=== PATIENT | male | born 1975 | race Caucasian/White ===

== ENCOUNTER 2016-09-27 11:04 | Emergency (ER) | payer MEDICAID ==
[~2016-09-27] VITALS: Ht 193 cm; Wt 113.4 kg
[2016-09-27 11:14] VITALS: BP 170/108
[2016-09-27] MEDS ORDERED: ACETAMINOPHEN 325 MG TAB PO ONE ×2 (11:17→11:30)
[2016-09-27] MEDS ORDERED: ACETAMINOPHEN 650 mg PER 20 mL UD PO ONE ×2 (11:30)
== END 2016-09-27 16:55 | disposition left against medical advice (07) ==
LOC: ER 11:04
DX: R53.1 Weakness (principal); R07.0 Pain in throat; Z53.21 Procedure and treatment not carried out due to patient leaving prior to being seen by health care provider
CPT/HCPCS: 93005

== ENCOUNTER 2017-02-08 12:54 | Inpatient (IN) | payer SELFPAY ==
[~2017-02-08] VITALS: Ht 193 cm; Wt 121.4 kg
[2017-02-08] MEDS ORDERED: ASPirin 81 mg TAB ONE (13:14)
[2017-02-08] MEDS ORDERED: METOPROLOL TARTRATE 1MG/1ML-5ML VIAL IV ONE ×2 (13:14→13:30)
[2017-02-08] MEDS ORDERED: HEPARIN SODIUM (PORCINE) 5000 UNITS/ML 1ML VIAL ONE (13:14)
[2017-02-08] MEDS ORDERED: MORPHINE SULF INJ 2 MG/ML SYRINGE 1ML ONE (13:14)
[2017-02-08] MEDS ORDERED: fentaNYL CITRATE 100 MCG/2 ML VL ONE (13:15)
[2017-02-08] MEDS ORDERED: MIDAZOLAM HCL 1MG/1ML-2 ML VIAL ONE (13:15)
[2017-02-08] MEDS ORDERED: ANGIOMAX 250 MG VIAL IV ONE (13:15)
[2017-02-08] MEDS ORDERED: IODIXANOL 320MG/ML 100ML BTL IV ONE (13:16)
[2017-02-08] MEDS ORDERED: EPINEPHrine HCL 1 MG/10 ML SYRG ONE (13:16)
[2017-02-08] MEDS ORDERED: LIDOCAINE 2%HCL (LOCAL ANESTH.) INJ 20ML MDV ONE (13:16)
[2017-02-08] MEDS ORDERED: SODIUM CHL 0.9% 50 ML ONE (13:16)
[2017-02-08] MEDS ORDERED: ATROPINE SULF 0.5 MG/5ML SYR ONE (13:16)
[2017-02-08] MEDS ORDERED: EPTIFIBATIDE INJ (2MG/ML) 10ML VIAL IV ONE (13:17)
[2017-02-08] MEDS ORDERED: MORPHINE SULF INJ 2 MG/ML SYRINGE 1ML IV ONE (13:30)
[2017-02-08] MEDS ORDERED: HEPARIN SODIUM (PORCINE) 5000 UNITS/ML 1ML VIAL IV ONE (13:30)
[2017-02-08] MEDS ORDERED: NITROGLYCERIN 0.4 MG SL TAB SL PRN ×2 (13:30→14:30)
[2017-02-08] MEDS ORDERED: ASPirin 325 MG TAB PO ONE (13:30)
[2017-02-08 13:45] LABS: Basophils # (auto) 0.1 uL; Basophils % (auto) 0.3 % (0.0-2.0); CONDITION Y; Eosinophils # (auto) 0.1 uL; Eosinophils % (auto) 0.4 % (0.0-7.0); Hematocrit 46.1 % (41.0-53.0); Lymphocytes # (auto) 1.7 uL; Lymphocytes % (auto) 8.9 % (10.0-50.0); Mean Corpuscular Hemoglobin 31.4 pg (28.0-32.0); Mean Corpuscular Hgb Conc. 34.8 g/dL (32.0-36.0); Mean Corpuscular Volume 90.4 fL (80.0-100.0); Mean Platelet Volume 8.6 fL (7.4-10.4); Monocytes % (auto) 5.4 % (0.0-12.0); Neutrophils # (auto) 16.2 uL; Platelet Count (auto) 329 10^3/uL (140-450); Red Cell Distribution Width 14.1 % (11.6-16.0); White Blood Cell 19.1 10^3/uL (4.4-10.8)
[2017-02-08] MEDS ORDERED: LABETALOL HCL 5 MG/ML 4ML SYRINGE IV ONE (13:54)
[2017-02-08 13:58] LABS: INR 1.05 (0.9-1.15); Partial Thromboplastin Time 29.4 sec (22.64-33.71); Prothrombin Time 11.4 sec (9.37-12.3)
[2017-02-08] MEDS: SODIUM CHLOR 0.9% PF (SALINE LOCK) 10ML VIAL IV SCH ×2 (14:00→21:59)
[2017-02-08] MEDS ORDERED: FUROSEMIDE 40 MG/4 ML VIAL ONE (14:16)
[2017-02-08 14:17] LABS: BUN/Creatinine Ratio 11.6; Bilirubin, Total 0.7 mg/dL (0.2-1.0); Calcium 8.7 mg/dL (8.5-10.1); Magnesium 2.4 mg/dL (1.6-2.6); Potassium 3.6 mmol/L (3.5-5.1); Total Protein 7.7 g/dL (6.4-8.2)
[2017-02-08] MEDS ORDERED: ALPRAZolam 0.5 MG TAB PO PRN (14:30)
[2017-02-08] MEDS ORDERED: MORPHINE SULF INJ 2 MG/ML SYRINGE 1ML IV PRN (14:30)
[2017-02-08] MEDS ORDERED: FUROSEMIDE 40 MG/4 ML VIAL IV ONE (14:30)
[2017-02-08] MEDS ORDERED: ACETAMINOPHEN 500 MG TAB PO PRN (14:30)
[2017-02-08] MEDS ORDERED: LABETALOL HCL 5 MG/ML ML 20ML VIAL IV ONE (14:30)
[2017-02-08] MEDS ORDERED: ALBUTEROL SULF 2.5 MG/0.5ML(0.5%) NEB SOLN NEB PRN (14:45)
[2017-02-08] MEDS ORDERED: FUROSEMIDE 20 MG/2 ML VIAL IV ONE (15:00)
[2017-02-08] MEDS ORDERED: POTASSIUM CHLORIDE 8 MEQ TAB PO ONE (15:00)
[2017-02-08] MEDS ORDERED: CARVEDILOL 3.125 MG TAB PO ONE (15:00)
[2017-02-08] MEDS ORDERED: FAMOTIDINE 20 MG TAB PO ONE (15:00)
[2017-02-08] MEDS: HYDROcodone-ACET 5/325MG TAB PO PRN ×2 (16:37→21:43)
[2017-02-08 17:05] VITALS: BP 153/96
[2017-02-08] MEDS: FUROSEMIDE 20 MG/2 ML VIAL IV SCH (18:00)
[2017-02-08 20:00] VITALS: BP_SYST 107; BP_SYST 173; BP_DIAS 113; BP_DIAS 64
[2017-02-08 20:20] VITALS: BP 153/96
[2017-02-08] MEDS: LABETALOL HCL 5 MG/ML ML 20ML VIAL IV PRN ×2 (21:10→23:59)
[2017-02-08] MEDS: FAMOTIDINE 20 MG TAB PO SCH (21:44)
[2017-02-08] MEDS: CARVEDILOL 3.125 MG TAB PO SCH (21:49)
[2017-02-08] MEDS: LISINOPRIL 20 MG TAB PO SCH (21:50)
[2017-02-08] MEDS ORDERED: LISINOPRIL 20 MG TAB PO SCH (22:00)
[2017-02-08] MEDS ORDERED: SODIUM CHLOR 0.9% PF (SALINE LOCK) 10ML VIAL IV SCH (22:00)
[2017-02-08] MEDS: POTASSIUM CHLORIDE 8 MEQ TAB PO SCH (22:00)
[2017-02-09] MEDS: HYDROcodone-ACET 5/325MG TAB PO PRN ×2 (02:05→17:07)
[2017-02-09 05:06] LABS: Thyroxine (T4) 8.8 ug/dL (4.5-12.0)
[2017-02-09 05:26] VITALS: BP 160/99
[2017-02-09] MEDS: SODIUM CHLOR 0.9% PF (SALINE LOCK) 10ML VIAL IV SCH ×2 (05:36→14:00)
[2017-02-09] MEDS: FUROSEMIDE 20 MG/2 ML VIAL IV SCH ×2 (05:39→18:10)
[2017-02-09 06:08] LABS: BUN/Creatinine Ratio 16.9; Calcium 8.2 mg/dL (8.5-10.1); Potassium 3.4 mmol/L (3.5-5.1)
[2017-02-09 06:18] LABS: B-Type Natriuretic Peptide 265.88 pg/mL (0-100)
[2017-02-09 06:25] LABS: Temperature: 23.3 C (20.0-25.0)
[2017-02-09 08:00] VITALS: BP 182/113
[2017-02-09] MEDS: LABETALOL HCL 5 MG/ML ML 20ML VIAL IV PRN ×5 (08:40→15:08)
[2017-02-09 09:00] VITALS: BP 182/113
[2017-02-09] MEDS: CARVEDILOL 3.125 MG TAB PO SCH (09:54)
[2017-02-09] MEDS: LISINOPRIL 20 MG TAB PO SCH (09:55)
[2017-02-09] MEDS: FAMOTIDINE 20 MG TAB PO SCH (09:55)
[2017-02-09] MEDS: POTASSIUM CHLORIDE 8 MEQ TAB PO SCH (09:55)
[2017-02-09] MEDS ORDERED: IOHEXOL 350 MG/ML 100ML IJ ONE (10:18)
[2017-02-09 12:55] VITALS: BP 166/90
[2017-02-09 17:00] VITALS: BP 141/99
[2017-02-09] MEDS ORDERED: POTASSIUM CHL 20 Meq TABLET PO ONE (18:00)
[2017-02-09 18:52] LABS: Urine Bilirubin Negative (Negative); Urine Blood Negative /uL (Negative); Urine Color Yellow (Yellow); Urine Ketone Negative (Negative); Urine Nitrite Negative (Negative); Urine RBC <1 /hpf (0 - 3); Urine Urobilinogen Normal (Negative); Urine pH 6.5 (5.0-8.0)
[2017-02-09 19:02] LABS: Urine Glucose 4+ mg/dL (Normal)
[2017-02-09] MEDS ORDERED: cefTRIAXone 1GM/50ML D5W 50 ML IV SCH (21:00)
[2017-02-09] MEDS ORDERED: CARVEDILOL 12.5 MG TAB PO SCH (22:00)
[2017-02-10] MEDS ORDERED: IPRATROPIUM BROM 0.5 MG/2.5ML INH SOL NEB SCH
[2017-02-10] MEDS ORDERED: BUDESONIDE (INHALATION) 0.5 MG/2 ML NEB NEB SCH (10:00)
[2017-02-10] MEDS ORDERED: LEVOFLOXACIN 500MG 100 ML IV SCH (10:00)
== END 2017-02-09 20:00 | disposition left against medical advice (07) | DRG 280 ==
LOC: ER 12:54 → EDBD 12:54 → CATH 12:55 → TELE-E-ADS 12:56 → TELE-WESTW 18:09
PROVIDERS: ADMIT Specialist; ATTEND Specialist
PROC: 4A023N8 Measurement of Cardiac Sampling and Pressure, Bilateral, Percutaneous Approach (ICD-10-PCS; principal; 2017-02-08)
PROC: B2111ZZ Fluoroscopy of Multiple Coronary Arteries using Low Osmolar Contrast (ICD-10-PCS; 2017-02-08)
PROC: B2151ZZ Fluoroscopy of Left Heart using Low Osmolar Contrast (ICD-10-PCS; 2017-02-08)
PROC: B41F1ZZ Fluoroscopy of Right Lower Extremity Arteries using Low Osmolar Contrast (ICD-10-PCS; 2017-02-08)
DX: I21.09 ST elevation (STEMI) myocardial infarction involving other coronary artery of anterior wall (principal); I50.23 Acute on chronic systolic (congestive) heart failure; J18.9 Pneumonia, unspecified organism; I42.9 Cardiomyopathy, unspecified; J44.0 Chronic obstructive pulmonary disease with (acute) lower respiratory infection; I20.0 Unstable angina; E66.01 Morbid (severe) obesity due to excess calories; F17.210 Nicotine dependence, cigarettes, uncomplicated; I10 Essential (primary) hypertension; I27.2 Other secondary pulmonary hypertension; F12.90 Cannabis use, unspecified, uncomplicated; R73.9 Hyperglycemia, unspecified; I11.0 Hypertensive heart disease with heart failure; K76.0 Fatty (change of) liver, not elsewhere classified; Z91.19 Patient's noncompliance with other medical treatment and regimen; Z71.89 Other specified counseling; Z68.32 Body mass index [BMI] 32.0-32.9, adult
CPT/HCPCS: 36415; 71010; 71275; 76705; 80048; 80053; 80307; 81001; 83735; 83880; 84443; 84484; 85025; 85610; 85730; 87040; 87086; 93005; 93460; 93970; 94761; 96374; 96375; 99152; C1751; J0461; J2250; J3490; Q9967

== ENCOUNTER 2017-02-12 01:35 | Emergency (ER) | payer MEDICAID ==
[~2017-02-12] VITALS: Ht 193 cm; Wt 122.5 kg
[2017-02-12] MEDS ORDERED: cloNIDine HCL 0.1 MG TAB ONE (01:56)
[2017-02-12 02:10] VITALS: BP 172/97
[2017-02-12] MEDS ORDERED: cloNIDine HCL 0.1 MG TAB PO ONE (02:15)
[2017-02-12 02:52] LABS: Basophils # (auto) 0.1 uL; Basophils % (auto) 0.3 % (0.0-2.0); CONDITION Y; DEFINITIVE SEE PRINTOUT; Eosinophils # (auto) 0.6 uL; Eosinophils % (auto) 2.7 % (0.0-7.0); Hematocrit 43.9 % (41.0-53.0); Lymphocytes # (auto) 3.3 uL; Lymphocytes % (auto) 15.6 % (10.0-50.0); Mean Corpuscular Hemoglobin 31.1 pg (28.0-32.0); Mean Corpuscular Hgb Conc. 34.2 g/dL (32.0-36.0); Mean Corpuscular Volume 90.9 fL (80.0-100.0); Mean Platelet Volume 9.2 fL (7.4-10.4); Monocytes # (auto) 2.8 uL; Monocytes % (auto) 13.3 % (0.0-12.0); Neutrophils # (auto) 14.4 uL; Neutrophils % (auto) 68.1 % (37.0-80.0); Platelet Count (auto) 314 10^3/uL (140-450); Red Cell Distribution Width 13.7 % (11.6-16.0); White Blood Cell 21.2 10^3/uL (4.4-10.8)
[2017-02-12 03:25] LABS: BUN/Creatinine Ratio 13.4; Calcium 8.3 mg/dL (8.5-10.1); Magnesium 2.2 mg/dL (1.6-2.6); Potassium 3.7 mmol/L (3.5-5.1)
[2017-02-12 03:30] LABS: Total Protein 7.3 g/dL (6.4-8.2)
== END 2017-02-12 06:57 | disposition left against medical advice (07) ==
LOC: ER 01:48
DX: I10 Essential (primary) hypertension (principal); M54.5 Low back pain; Z53.21 Procedure and treatment not carried out due to patient leaving prior to being seen by health care provider
CPT/HCPCS: 36415; 71010; 80053; 83735; 84484; 85025; 93005

== ENCOUNTER 2024-12-08 11:31 | Inpatient (IN) | payer MEDICAID ==
[~2024-12-08] VITALS: Ht 177.8 cm; Wt 121.0 kg
[2024-12-08] VITALS (7 sets, daily range): BP systolic 170–173; BP diastolic 71–80; PULSE 59–74; RESP 18–20; TEMP 98; O2SAT 97–99
[~2024-12-08 11:31] MED LIST: DOX2T PO; FERR325T20 PO; FURO40TA4 PO; HYDR100T10 PO; LISI30TA8 PO; SEVE800T10 PO
--- NOTE | 2024-12-08 11:40 | ECG ---
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
--- NOTE | 2024-12-08 11:52 | ED.PDOC ---
HPI Comments 49y m who presents to the ED via EMS for chief complaint of chest pain. Pt states he has been having chest pain and shortness of breath since last night PM. Pt today noted due to the increased heat, he had exacerbation of his chest pain and shortness of breath. Pt states his chest pain was substernal, constant, sharp, rating the pain10/10, with no associated exacerbating or relieving factors. Pt states he called EMS and prior to EMS arrival, he self administered 1 tab nitro and states his pain had gone away prior to EMS arrival. Pt states upon EMS arrival, he is still short of breath with associated chills, sweats, cough, and vomiting. Pt in the ED, states he is bed ridden with noted history of pressure ulcers. Pt has noted history of CKD and states he gets dialysis , and Sat but states he has been getting dialysis for the past 4 days due to increased fluid build up from his CHF. Pt in the ED, otherwise denies any other symptoms at this time. Time Seen by MD: 11:47 Primary Care Provider: DENIES Reviewed Notes: Medications, Allergies Allergies: Coded Allergies: NO KNOWN ALLERGIES (Unverified , 09/27/16) Home Meds Reported Medications Lisinopril (Lisinopril) 30 Mg Tab, 1 TAB PO BID, #30 TAB 5 Refills 06/19/18 Information Source: Patient, Emergency Med Personnel Mode of Arrival: EMS Brought in by: EMS Past Medical History PAST MEDICAL HISTORY: Asthma, CHF, CKF, COPD, HTN, MS Surgical History: PTCA Surgical History (Other): AAA Family History Family History: Unobtainable Social History Smoker: Cigarettes, Less Than 1 Pack/Day Alcohol: Denies ETOH Use Drugs: Marijuana Lives In: Home Constitutional: reports: chills, malaise, sweats; denies: diaphoresis, fatigue, fever, weakness, others EENTM: denies: blurred vision, double vision, ear bleeding, ear discharge, ear drainage, ear pain, ear ringing, eye pain, eye redness, hearing loss, mouth pain, mouth swelling, nasal discharge, nose bleeding, nose congestion, nose pain, photophobia, tearing, throat pain, throat swelling, voice changes, others Respiratory: reports: cough, shortness of breath; denies: hemoptysis, orthopnea, SOB at rest, SOB with excertion, stridor, wheezing, others Cardiovascular: reports: chest pain; denies: dizzy spells, diaphoresis, Dyspnea on exertion, edema, irregular heart beat, left arm pain, lightheadedness, palpitations, PND, syncope, others Gastrointestinal: denies: abdomen distended, abdominal pain, blood streaked bowels, constipated, diarrhea, dysphagia, difficulty swallowing, hematemesis, melena, nausea, poor appetite, poor fluid intake, rectal bleeding, rectal pain, vomiting, others Genitourinary: denies: burning, dysuria, flank pain, frequency, hematuria, incontinence, penile discharge, penile sore, pain, testicle pain, testicle swelling, urgency, others Neurological: denies: dizziness, fainting, headache, left sided numbness, left sided weakness, numbness, paresthesia, pre-existing deficit, right sided numbness, right sided weakness, seizure, speech problems, tingling, tremors, weakness, others Musculoskeletal: denies: back pain, gout, joint pain, joint swelling, muscle pain, muscle stiffness, neck pain, others Integumetry: denies: bruises, change in color, change in hair/nails, dryness, laceration, lesions, lumps, rash, wounds, others Allergic/Immunocompromised: denies: Difficulty Healing, Frequent Infections, Hives, Itching, others Hematologic/Lymphatic: denies: anemia, blood clots, easy bleeding, easy bruising, swollen glands, others Endocrine: denies: excessive hunger, excessive sweating, excessive thirst, excessive urination, flushing, intolerance to cold, intolerance to heat, unexplained weight gain, unexplained weight loss, others Psychiatric: denies: anxiety, bipolar disorder, depression, hopeless, panic d isorder, schizophrenia, sleepless, suicidal, others All Other Systems: Reviewed and Negative Physical Exam General Appearance: Moderate Distress, Obese HEENT: Normal ENT Inspection, Pharynx Normal, TMs Normal Neck: Full Range of Motion, Non-Tender, Normal, Normal Inspection Respiratory: Chest Non-Tender, Lungs Clear, No Accessory Muscle Use, No Respiratory Distress, Normal Breath Sounds Cardiovascular: No Edema, No JVD, No Murmur, No Gallop, Normal Peripheral Pulses, Regular Rate/Rhythm Breast Exam: Deferred Gastrointestinal: No Organomegaly, Non Tender, No Pulsatile Mass, Normal Bowel Sounds, Soft, Other (Midline abdominal scar) Genitalia: Deferred Pelvic: Deferred Rectal: Deferred Extremities: No calf tenderness, Normal capillary refill, Pedal edema, Other (Open wound to the left calcaneal region) Musculoskeletal : Apperance: Normal 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 Was a procedure done?: No CP Differential Dx Differential Diagnosis: A-fib, A-Flutter, Angina, Anxiety / Panic Attack, Atrial Dysrhythmia, Electrolyte Disorder, Heart Failure, MS Other Differential Diagnosis ESRD, CHF exacerbation, PNA, ACS Differential Diagnosis: HTN Essential, HTN Accelerated X-Ray, Labs, Meds, VS Vital Signs Date Time Temp Pulse Resp B/P (MAP) Pulse Ox O2 Delivery O2 Flow Rate FiO2 12/08/24 13:00 73 12/08/24 12:50 73 12/08/24 12:46 98.8 84 16 187/76 (113) 97 98.8 12/08/24 12:46 74 20 97 Nasal Cannula* 3 32 12/08/24 11:52 72 12/08/24 11:40 98.8 94 18 190/84 (119) 98 98.8 12/08/24 11:35 72 Lab Test 12/08/24 13:32 12/08/24 12:58 12/08/24 11:51 Range/Units Lactic Acid Level Pending Troponin I High Sensitivity Pending 59 *H </=54 ng/L White Blood Count 24.9 H 4.4-10.8 10^3/uL Red Blood Count 2.94 L 4.5-5.90 10^6/uL Hemoglobin 8.3 L 13.5-17.5 g/dL Hematocrit 26.1 L 41.0-53.0 % Mean Corpuscular Volume 88.8 80.0-100.0 fL Mean Corpuscular Hemoglobin 28.3 28.0-32.0 pg Mean Corpuscular Hemoglobin Concent 31.9 L 32.0-36.0 g/dL Red Cell Distribution Width 21.0 H 11.8-14.3 % Platelet Count 168 140-450 10^3/uL Mean Platelet Volume 7.8 6.9-10.8 fL Neutrophils (%) (Auto) 83.6 H 37.0-80.0 % Lymphocytes (%) (Auto) 4.3 L 10.0-50.0 % Monocytes (%) (Auto) 10.0 0.0-12.0 % Eosinophils (%) (Auto) 1.9 0.0-7.0 % Basophils (%) (Auto) 0.2 0.0-2.0 % Neutrophils # (Auto) 20.8 H 1.6-8.6 10 ^3/uL Lymphocytes # (Auto) 1.1 0.4-5.4 10 ^3/uL Monocytes # (Auto) 2.5 H 0-1.3 10 ^3/uL Eosinophils # (Auto) 0.5 0-0.8 10 ^3/uL Basophils # (Auto) 0 0-0.2 10 ^3/uL Nucleated Red Blood Cells 0.0 % D-Dimer, Quantitative 2.21 H 0.0-0.49 mg/L FEU Sodium Level 139 136-145 mmol/L Potassium Level 5.2 H 3.5-5.1 mmol/L Chloride Level 101 98-107 mmol/L Carbon Dioxide Level 27 20-31 mmol/L Anion Gap 11 5-15 Blood Urea Nitrogen 60 H 9-23 mg/dL Creatinine 3.12 H 0.700-1.30 mg/dL Glomerular Filtration Rate Calc 23 >90 mL/min BUN/Creatinine Ratio 19.2 10.0-20.0 Serum Glucose 146 H 74-106 mg/dL Calcium Level 9.4 8.7-10.4 mg/dL B-Type Natriuretic Peptide 1565.75 0-100 pg/mL Current Medications Medications (Trade) Dose Ordered Sig/John Route Start Time Stop Time Status Last Admin Aspirin 162 mg ONCE ONCE PO 12/08/24 11:45 12/08/24 11:46 DC 12/08/24 12:03 Images Reviewed?: Images reviewed and evaluated by me Time of 1ST Reevaluation: 12:20 Reevaluation 1ST: Unchanged Patient Education/Counseling: Diagnosis, Treatment, Prognosis Family Education/Counseling: No Family Present Sepsis Sepsis Reasesment Focused Exam Orders: Laboratory Tests 12/08/24 13:32: Departure 1 Departure Time of Disposition: 13:39 Impression: Primary Impression: Acute coronary syndrome Additional Impressions: Generalized weakness Elevated troponin Acute pulmonary edema ESRD needing dialysis Disposition: ADMITTED INPATIENT Admit to: Tele Condition: Fair Critical Care Note Critical Care Time?: Yes (45 min-critical care time only) Stability Stability form required: Yes Unstable for transfer: Telemetry monitoring (Telemetry monitoring required), ED Physician Assesment (Clinical assesment) Heart Score Heart Score: Heart Score Response (Comments) Value History Slightly Suspicious 0 EKG Normal 0 Age 45-64 1 Risk Factors >3 or Hx ASHD 2 Troponin 1-2 x's Normal limit 1 Total 4 I personally scribed for HERON BARTH MD ([email or web address]) on 12/08/24 at 11:52. Electronically submitted by Castro Simon ([email or web address]). HERON BARTH MD Dec 08, 2024 11:52
[2024-12-08] MEDS: ASPirin 81 mg TAB PO ONE (12:03)
[2024-12-08 12:05] LABS: Basophils # (auto) 0 10 ^3/uL (0-0.2); Mean Corpuscular Hemoglobin 28.3 pg (28.0-32.0)
[2024-12-08 12:08] LABS: Basophils % (auto) 0.2 % (0.0-2.0); Eosinophils # (auto) 0.5 10 ^3/uL (0-0.8); Eosinophils % (auto) 1.9 % (0.0-7.0); Hematocrit 26.1 % (41.0-53.0); Hemoglobin 8.3 g/dL (13.5-17.5); Lymphocytes # (auto) 1.1 10 ^3/uL (0.4-5.4); Lymphocytes % (auto) 4.3 % (10.0-50.0); Mean Corpuscular Hgb Conc. 31.9 g/dL (32.0-36.0); Mean Corpuscular Volume 88.8 fL (80.0-100.0); Monocytes # (auto) 2.5 10 ^3/uL (0-1.3); Neutrophils # (auto) 20.8 10 ^3/uL (1.6-8.6); Neutrophils % (auto) 83.6 % (37.0-80.0); Platelet Count (auto) 168 10^3/uL (140-450); Red Blood Cells 2.94 10^6/uL (4.5-5.90); White Blood Cell 24.9 10^3/uL (4.4-10.8)
[2024-12-08 12:10] LABS: Chloride 101 mmol/L (98-107); Sodium 139 mmol/L (136-145)
[2024-12-08 12:11] LABS: Anion Gap 11 (5-15); Carbon Dioxide 27 mmol/L (20-31)
[2024-12-08 12:12] LABS: Calcium 9.4 mg/dL (8.7-10.4)
[2024-12-08 12:16] LABS: BUN/Creatinine Ratio 19.2 (10.0-20.0)
[2024-12-08 12:18] LABS: Blood Urea Nitrogen 60 mg/dL (9-23); Glucose 146 mg/dL (74-106); Potassium 5.2 mmol/L (3.5-5.1)
--- NOTE | 2024-12-08 12:51 | ECG ---
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
--- NOTE | 2024-12-08 13:37 | DVH ---
CHEST RADIOGRAPH Indication: cp Technique: Single frontal view of the chest was obtained COMPARISON: None FINDINGS: Lines and Tubes: Right tunneled internal jugular approach hemodialysis catheter terminates near the s uperior cavoatrial junction. Lungs: Hazy/patchy bilateral lower lung opacities. Mild interstitial prominence. Pleura: Small left pleural effusion. No pneumothorax. Cardiomediastinal contours: Mild enlargement of the cardiac silhouette. Aortic arch stent. Bones: Unremarkable IMPRESSION: Mild interstitial prominence, hazy lower lung airspace opacities, and a small left pleural effusion. Findings could represent mild pulmonary edema with infection not excluded.
[2024-12-08] MEDS: ALBUTEROL SULF 2.5 MG/0.5ML(0.5%) NEB SOLN NEB ONE (16:47)
[2024-12-08] MEDS: IPRATROPIUM BROM 0.5 MG/2.5ML INH SOL NEB ONE (16:47)
--- NOTE | 2024-12-08 16:56 | DVHHP2 ---
History of Present Illness Reason for Visit: Chest pain History of Present Illness A 49-year-old male with a complex medical history including hypertension, congestive heart failure (EF 25%), coronary artery disease with prior CT and stenting, chronic kidney disease on hemodialysis, COPD, asthma, obesity, history of aortic aneurysm repair (2023), complicated by paraplegia, methamphetamine, marijuana, and tobacco use, presents to the ED with sharp, stabbing chest pain that began last night. He reports that the pain was relieved after taking one nitroglycerin tablet. The chest pain is associated with shortness of breath. Patient states he previously saw superintendent construction Dr. Malhotra but has not followed up in some time. He has a future appointment with Dr. Terry. He underwent left heart catheterization in 2017 showing clear coronaries and an EF of 25%. He had 1-2 stents placed in [id number] at [facility]. He under went aortic aneurysm repair in 2023, complicated by paraplegia and is now wheelchair- bound. He also reports multiple pressure injuries on buttocks and bilateral lower extremities Past Medical History As stated in HPI Past Surgical History AAA repair Family History Reviewed, non-contributory to the management of this case. Past Social History Admits to tobacco use and marijuana use Ex amphetamine use Review of Systems Constitutional: Yes: Malaise; No: Fever, Chills, Sweats, Weakness, Other Eyes: No: Pain, Vision change, Conjunctivae inflammation, Eyelid inflammation, Other, Redness ENT: No: Ear pain, Ear discharge, Nose pain, Nose discharge, Nose congestion, Mouth pain, Mouth swelling, Throat pain, Throat swelling, Other Respiratory: No: Cough, Dry, Shortness of breath, SOB with excertion, Wheezing, Hemoptysis, Pleuritic Pain, Sputum, Wheezing, Other Cardiovascular: Chest Pain, Orthopnea, Paroxysmal Noc. Dyspnea, Edema; No: Palpitations, Lt Headedness, Other Gastrointestinal: No: Nausea, Vomiting, Abdominal Pain, Diarrhea, Constipation, Melena, Hematochezia, Other Genitourinary: No Dysuria, No Frequency, No Incontinence, No Hematuria, No Retention, No Other Skin: Other (Multiple pressure injuries) Neurological: Other (Paraplegia, wheelchair-bound) Allergies: Coded Allergies: NO KNOWN ALLERGIES (Unverified , 09/27/16) Exam Vital Signs Vital Signs Date Time Temp Pulse Resp B/P (MAP) Pulse Ox O2 Delivery O2 Flow Rate FiO2 12/08/24 16:00 70 12/08/24 15:00 16 177/67 (103) 97 12/08/24 12:46 98.8 98.8 12/08/24 12:46 Nasal Cannula* 3 32 General Appearance: Alert, Oriented X3, Cooperative, mild distress HEENT: Atraumatic, PERRLA, EOMI Respiratory: Clear to auscultation, Normal air movement Cardiovascular: Regular rate, Normal S1, Normal S2, Other (Bilateral lower extremity nonpitting edema) Abdominal: Normal bowel sounds, Soft, No tenderness Extremities: Other (Pressure injury in buttocks and bilateral lower extremity/feet) Skin: No rashes Neuro: Other (Wheelchair-bound, paraplegic) Labs/Xrays Labs Test 12/08/24 14:51 12/08/24 13:32 12/08/24 11:51 Range/Units Troponin I High Sensitivity 66 *H </=54 ng/L Lactic Acid Level 1.2 0.4-2.0 mmol/L White Blood Count 24.9 H 4.4-10.8 10^3/uL Red Blood Count 2.94 L 4.5-5.90 10^6/uL Hemoglobin 8.3 L 13.5-17.5 g/dL Hematocrit 26.1 L 41.0-53.0 % Mean Corpuscular Volume 88.8 80.0-100.0 fL Mean Corpuscular Hemoglobin 28.3 28.0-32.0 pg Mean Corpuscular Hemoglobin Concent 31.9 L 32.0-36.0 g/dL Red Cell Distribution Width 21.0 H 11.8-14.3 % Platelet Count 168 140-450 10^3/uL Mean Platelet Volume 7.8 6.9-10.8 fL Neutrophils (%) (Auto) 83.6 H 37.0-80.0 % Lymphocytes (%) (Auto) 4.3 L 10.0-50.0 % Monocytes (%) (Auto) 10.0 0.0-12.0 % Eosinophils (%) (Auto) 1.9 0.0-7.0 % Basophils (%) (Auto) 0.2 0.0-2.0 % Neutrophils # (Auto) 20.8 H 1.6-8.6 10 ^3/uL Lymphocytes # (Auto) 1.1 0.4-5.4 10 ^3/uL Monocytes # (Auto) 2.5 H 0-1.3 10 ^3/uL Eosinophils # (Auto) 0.5 0-0.8 10 ^3/uL Basophils # (Auto) 0 0-0.2 10 ^3/uL Nucleated Red Blood Cells 0.0 % D-Dimer, Quantitative 2.21 H 0.0-0.49 mg/L FEU Sodium Level 139 136-145 mmol/L Potassium Level 5.2 H 3.5-5.1 mmol/L Chloride Level 101 98-107 mmol/L Carbon Dioxide Level 27 20-31 mmol/L Anion Gap 11 5-15 Blood Urea Nitrogen 60 H 9-23 mg/dL Creatinine 3.12 H 0.700-1.30 mg/dL Glomerular Filtration Rate Calc 23 >90 mL/min BUN/Creatinine Ratio 19.2 10.0-20.0 Serum Glucose 146 H 74-106 mg/dL Calcium Level 9.4 8.7-10.4 mg/dL B-Type Natriuretic Peptide 1565.75 0-100 pg/mL PROCEDURE(s): CXRP - CHEST PORTABLE REASON: cp ORDER NUMBER(s): [id number], ACCESSION NUMBER(s): [id number] CHEST RADIOGRAPH Indication: cp Technique: Single frontal view of the chest was obtained COMPARISON: None FINDINGS: Lines and Tubes: Right tunneled internal jugular approach hemodialysis catheter terminates near the superior cavoatrial junction. Lungs: Hazy/patchy bilateral lower lung opacities. Mild interstitial prominence. Pleura: Small left pleural effusion. No pneumothorax. Cardiomediastinal contours: Mild enlargement of the cardiac silhouette. Aortic arch stent. Bones: Unremarkable IMPRESSION: Mild interstitial prominence, hazy lower lung airspace opacities, and a small left pleural effusion. Findings could represent mild pulmonary edema with infection not excluded. Assessment/Plan Assessment/Plan # chest pain, non ST-elevation--likely noncardiac versus demand ischemia, rule out progressive CAD, relieved with nitro, no troponin rise, risk factors, CAD, recent aneurysm surgery, meth use, hypertensive urgency # Elevated D-dimer raises concern for PE or other vascular cause # HFrEF- hx of EF 25%, risk for decompensation # accelerated hypertension- may contribute to chest pain and cardiac strain # CAD s/p PCI # cardiomyopathy Admit to telemetry unit Cardiology consult for management of chest pain and CHF V/Q scan to rule out PE or aortic dissection Continue with GDM T for heart failure, IV diuresis Continue antihypertensive medication Echocardiogram Serial troponins and EKG daily wt, strict I&Os Close cardiac surveillance # CKD on hemodialysis Nephrology consult for treatment # history of thoracic aortic aneurysm repair 2023 Concern for structural complications if chest pain atypical # paraplegia--postsurgical, at high risk for complication including thromboembolism and skin breakdown # multiple pressure injuries-possible source of leukocytosis Empiric antibiotic Wound consult Blood and wound culture # Asthma DuoNeb treatment # anxiety Sertraline # polysubstance use including tobacco, marijuana, and ex amphetamine use Counseled Nicotine patch UDS DVT prophylaxis Medical plan discussed with patient and RN Plan discussed with: Patient My Orders Orders - IVETH BRADLEY KEG RAISER Procedure Category Date Status Time Admit ADMIT 12/08/24 Transmitted 16:52 Code Status CODE 12/08/24 Transmitted 16:52 Hydrocodone-Acet PHA 12/08/24 Transmitted 5/325mg Tab ([place] 17:00 Enoxaparin Sodium PHA 12/09/24 Transmitted (Lovenox) 10:00 Fall Risk Precautions [facility] 12/08/[address] 16:52 Complete Blood Count LAB 12/09/24 Verified 04:00 Comprehensive LAB 12/09/24 Verified Metabolic Panel 04:00 Cardiac DIET 12/08/24 Transmitted Diet-2gna,Lofat,Lochol Dinner Echo 2d Mode Cardiac US 12/08/24 Logged DOP 16:52 Condition: Fair ZAC 12/08/24 Transmitted 16:52 Acetaminophen Tablet PHA 12/08/24 Transmitted (Tylenol Tablet) 17:00 Morphine Sulfate PHA 12/08/24 Transmitted Injection 17:00 Nitroglycerin PHA 12/08/24 Transmitted Sublingual (Ntrostat 17:00 Morphine Sulfate PHA 12/08/24 Transmitted Injection 17:00 Stat Ekg For Chest ZAC 12/08/24 Transmitted Pain 16:52 Notify Of Changes [facility] 12/08/24 Transmitted From Base 16:52 Billet Driller For ZAC 12/08/24 Transmitted 24 Hours 16:52 Emergency Dysrhythmia ZAC 12/08/24 Transmitted Protocol 16:52 Rhythm Strips Once ZAC 12/08/24 Transmitted Every Shift 16:52 Oxygen By Nasal RT 12/08/24 Transmitted Cannula 16:52 Date of Service: Dec 08, 2024 Billing Provider: IVETH BRADLEY Common Visit Codes: [id number] INP/OBS CARE (HIGH) IVETH BRADLEY Dec 08, 2024 16:56
[2024-12-08] MEDS ORDERED: MORPHINE SULFATE INJ 2 MG/ml SYRG IV PRN (17:00)
[2024-12-08] MEDS ORDERED: VANCOMYCIN PER PHARMACY 0 MG IV SCH (17:30)
[2024-12-08] MEDS ORDERED: CLON0.2T PO (17:50)
[2024-12-08] MEDS ORDERED: SERT-289 PO (17:50)
[2024-12-08] MEDS ORDERED: LOSA-535 PO (17:50)
[2024-12-08] MEDS ORDERED: CARV25TA55 PO (17:50)
[2024-12-08] MEDS ORDERED: NIFE90TA75 PO (17:50)
[2024-12-08] MEDS: IPRATROPIUM BROM 0.5 MG/2.5ML INH SOL ONE (18:19)
[2024-12-08] MEDS: ALBUTEROL SULF 2.5 MG/0.5ML(0.5%) NEB SOLN ONE (18:19)
[2024-12-08] MEDS: ALBUTEROL SULF 2.5 MG/0.5ML(0.5%) NEB SOLN NEB SCH (18:20)
[2024-12-08] MEDS: IPRATROPIUM BROM 0.5 MG/2.5ML INH SOL NEB SCH (18:20)
[2024-12-08] MEDS: VANCOMYCIN 1.75GM/350ML 350 ML IV ONE (19:05)
[2024-12-08] MEDS: NICOTINE 7MG/24HR TOPICAL PATCH TD ONE (19:07)
[2024-12-08] MEDS: FUROSEMIDE 40 MG/4 ML VIAL IV ONE (19:10)
[2024-12-08] MEDS: PIPERACILLIN-TAZOB 2.25GM 50 ML IV SCH (21:50)
[2024-12-08] MEDS ORDERED: PATIENTS OWN MEDICATION (Lisinopril 1 TAB) PO SCH (22:00)
[2024-12-08] MEDS: cloNIDine HCL 0.1 MG TAB PO SCH (22:02)
[2024-12-08] MEDS: CARVEDILOL 12.5 MG TAB PO SCH (23:16)
[2024-12-08] MEDS: MORPHINE SULFATE INJ 2 MG/ml SYRG IV PRN (23:25)
[2024-12-08] MEDS: MORPHINE SULFATE 4 MG/ML SYR/VIAL ONE (23:27)
[2024-12-09] VITALS (19 sets, daily range): BP systolic 116–175; BP diastolic 45–87; PULSE 64–98; RESP 18–26; TEMP 97.7–99.8; O2SAT 66–100
[2024-12-09] MEDS: NITROGLYCERIN 0.4 MG SL TAB SL PRN (00:19)
[2024-12-09] MEDS: hydrALAZINE HCL 20 MG/ML VL IV PRN (02:02)
[2024-12-09] MEDS: NIFEdipine ER 30 MG TAB PO SCH (03:01)
[2024-12-09] MEDS: FUROSEMIDE 40 MG/4 ML VIAL IV SCH (06:08)
[2024-12-09 07:43] LABS: Basophils # (auto) 0 10 ^3/uL (0-0.2); Basophils % (auto) 0.1 % (0.0-2.0); Eosinophils # (auto) 0.5 10 ^3/uL (0-0.8); Eosinophils % (auto) 2.2 % (0.0-7.0); Hematocrit 25.2 % (41.0-53.0); Lymphocytes # (auto) 1.6 10 ^3/uL (0.4-5.4); Lymphocytes % (auto) 6.7 % (10.0-50.0); Mean Corpuscular Hgb Conc. 31.9 g/dL (32.0-36.0); Mean Corpuscular Volume 87.9 fL (80.0-100.0); Monocytes # (auto) 2.6 10 ^3/uL (0-1.3); Monocytes % (auto) 10.7 % (0.0-12.0); Neutrophils # (auto) 19.3 10 ^3/uL (1.6-8.6); Neutrophils % (auto) 80.3 % (37.0-80.0); Platelet Count (auto) 160 10^3/uL (140-450); Red Blood Cells 2.86 10^6/uL (4.5-5.90); Red Cell Distribution Width 21.3 % (11.8-14.3); White Blood Cell 24.1 10^3/uL (4.4-10.8)
[2024-12-09 08:08] LABS: Alanine Aminotransferase 21 U/L (7-40); Alkaline Phosphatase 56 U/L (46-116); Anion Gap 10 (5-15); BUN/Creatinine Ratio 22.2 (10.0-20.0); Calcium 9.3 mg/dL (8.7-10.4); Carbon Dioxide 27 mmol/L (20-31); Chloride 100 mmol/L (98-107); Glucose 80 mg/dL (74-106); Sodium 137 mmol/L (136-145)
[2024-12-09 08:09] LABS: Albumin 3.5 g/dL (3.2-4.8); Aspartate Aminotransferase 14 U/L (13-40)
[2024-12-09 08:10] LABS: Bilirubin, Total 0.4 mg/dL (0.2-1.0); Total Protein 5.6 g/dL (5.7-8.2)
[2024-12-09 08:12] LABS: Blood Urea Nitrogen 84 mg/dL (9-23)
[2024-12-09] MEDS: LOSARTAN POTASSIUM 50 MG TAB PO SCH (09:17)
[2024-12-09] MEDS: SERTRALINE HCL 50 MG TAB PO SCH (09:19)
[2024-12-09] MEDS: ENOXAPARIN SOD 40 MG/0.4 ML SYRINGE SC SCH (09:19)
[2024-12-09] MEDS: NICOTINE 7MG/24HR TOPICAL PATCH TD SCH (09:20)
[2024-12-09] MEDS ORDERED: NIFEdipine ER 30 MG TAB PO SCH (10:00)
--- NOTE | 2024-12-09 10:48 | DVHCONRES ---
MOHSEN DENNISON RESIDENT 12/09/24 1047: Date Seen: Dec 09, 2024 Resident Creating Document: MOHSEN DENNISON RESIDENT Reason for Consultation Rule out progressive CAD History of Present Illness Patient is a 49-year-old male with past medical history of heart failure with reduced ejection fraction 25%, hypertension, WI s/p PCI x 2 in 2020, CKD on hemodialysis Monday, , Monday, COPD, asthma, aortic aneurysm s/p repa ir with residual paraplegia in July 2023, comes in due to chest pain. According to the patient, he started experiencing chest pain yesterday in the morning after having an argument with his daughter, he rates the pain 8/10, without any exacerbating factors, slightly improved with nitroglycerin. Patient notes he is somewhat adherent to his home medication but not entirely. Patient also notes being under extreme anxiety and stress in the last couple weeks owing to problems in his marriage and moving his house. On review of systems patient is complaining of chills, productive cough, shortness of breath, orthopnea and palpitations. Of note, patient was discharged from [facility] 2 days ago after being treated for heart failure exacerbation. Echocardiogram at the time in [facility] showed ejection fraction of 25-30%. Past Medical History heart failure with reduced ejection fraction 25%, hypertension, WI s/p PCI x 2 in 2020, CKD on hemodialysis Monday, , Monday, COPD, asthma, aortic aneurysm s/p repair with residual paraplegia in July 2023 Past Surgical History Right 3rd toe amputation, aortic aneurysm repair, colectomy Family History: Patient reports no known family medical history. Social History Patient lives with his ex- and daughter, has a caregiver Smoking: Quit 1 month ago, prior to that was smoking 1.5 pack per day for 10 years Alcohol: Rarely Drugs: Uses marijuana daily. Quit methamphetamine in 2017. Allergies: Coded Allergies: NO KNOWN ALLERGIES (Unverified , 09/27/16) Home Meds Reported Medications Hydralazine Hcl (Hydralazine Hcl) 100 Mg Tab, 1 TAB PO TID for 60 Days, #180 12/09/24 Ferrous Sulfate (Ferosul) 325 Mg Tab, 1 TAB PO DAILY for 60 Days, #60 12/09/24 Furosemide (Furosemide) 40 Mg Tab, 1 TAB PO DAILY for 30 Days, #30 12/09/24 Sevelamer Carbonate (Sevelamer Carbonate) 800 Mg Tab, 3 TAB PO TID for 30 Days, #270 12/09/24 Doxazosin Mesylate (Doxazosin Mesylate) 2 Mg Tab, 1 TAB PO DAILY for 30 Days, #30 12/09/24 Sertraline HCl (Sertraline HCl) 50 Mg Tab, 1 TAB PO DAILY 12/08/24 Nifedipine (Nifedipine Er) 90 Mg Tab, 1 TAB PO DAILY 12/08/24 Carvedilol (Carvedilol) 25 Mg Tab, 1 TAB PO BID 12/08/24 Clonidine Hydrochloride (Clonidine Hcl) 0.2 Mg Tab, 1 TAB PO TID 12/08/24 Losartan Potassium (Losartan Potassium) 100 Mg Tab, 1 TAB PO DAILY 12/08/24 Current Medications Current Medications Medications (Trade) Dose Ordered Sig/John Route PRN Reason Start Time Stop Time Status Last Admin Acetaminophen/ Hydrocodone Bitart ([place] 5/325MG Tab) 1 tab Q4HP PRN PO MODERATE PAIN (4-6 PAIN SCALE) 12/08/24 17:00 Enoxaparin Sodium (Lovenox) 40 mg DAILY SC 12/09/24 10:00 12/09/24 09:19 Acetaminophen (Tylenol Tablet) 650 mg Q6HP PRN PO PAIN SCALE 1-3 OR TEMP>100.4 12/08/24 17:00 Morphine Sulfate 2 mg Q4HPRN PRN IV SEVERE PAIN (7-10 PAIN SCALE) 12/08/24 17:00 12/08/24 23:25 Nitroglycerin (Ntrostat Sublingual) 0.4 mg Q5MINP PRN SL FOR CHEST PAIN 12/08/24 17:00 12/09/24 00:31 Morphine Sulfate 2 mg Q30M PRN IV FOR CHEST PAIN 12/08/24 17:00 Vancomycin HCl 0 ml @ 0 mls/hr UD IV 12/08/24 17:30 Sertraline HCl (Zoloft) 50 mg DAILY PO 12/09/24 10:00 12/09/24 09:19 Carvedilol (Coreg Tablet) 25 mg BID PO 12/08/24 22:00 12/09/24 09:18 Clonidine HCl (Catapres Tablet) 0.2 mg TID PO 12/08/24 22:00 12/09/24 05:52 Patient Own Medication 1 tab BID PO 12/08/24 22:00 Hold Losartan Potassium (Cozaar Tablet) 100 mg DAILY PO 12/09/24 10:00 12/09/24 09:17 Nifedipine (Procardia Xl (Time-Release)) 90 mg DAILY PO 12/09/24 10:00 12/09/24 02:49 DC Piperacillin Sod/ Tazobactam Sod 50 ml @ 12.5 mls/hr Q12HR IV 12/08/24 22:00 12/09/24 09:19 Nicotine (Nicoderm 7MG/ 24HR) 1 patch DAILY TD 12/09/24 10:00 12/09/24 09:20 Albuterol (Ventolin Medneb) 2.5 mg Q4HPRN PRN NEB SHORTNESS OF BREATH 12/08/24 18:00 Albuterol (Ventolin Medneb) 2.5 mg Q6HR NEB 12/08/24 18:00 12/09/24 05:42 Ipratropium [place] (Atrovent Medneb) 0.5 mg Q4HPRN PRN NEB SHORTNESS OF BREATH 12/08/24 18:00 Ipratropium [place] (Atrovent Medneb) 0.5 mg Q6HR NEB 12/08/24 18:00 12/09/24 05:43 Furosemide (Lasix Injection) 40 mg BIDD IV 12/09/24 06:00 12/09/24 06:08 Hydralazine HCl (Apresoline Injection) 10 mg Q6HP PRN IV SBP>150 12/09/24 01:45 12/09/24 02:02 Nifedipine (Procardia Xl (Time-Release)) 90 mg DAILY PO 12/09/24 03:00 12/09/24 09:18 Review of Systems Patient seen and examined at bedside. Patient is alert and oriented to time, place person and responding to all questions. Currently denies any active ongoing chest pain. General: Chills Eyes: No Pain, No Vision change, No Conjunctivae inflammation, No Eyelid inflammation, No Other, No Redness ENT: No Ear pain, No Ear discharge, No Nose pain, No Nose discharge, No Nose congestion, No Mouth pain, No Mouth swelling, No Throat pain, No Throat swelling, No Other Cardiovascular: No Chest Pain, Palpitations, Orthopnea, No Paroxysmal No Dyspnea, No Edema, No Lt Headedness, No Other Respiratory: Cough, No Dry, No Shortness of breath, SOB with exertion, No Wheezing, No Hemoptysis, No Pleuritic Pain, No Sputum, No Other Gastrointestinal: No Nausea, No Vomiting, No Abdominal Pain, No Diarrhea, No Constipation, No Melena, No Hematochezia, No Other Genitourinary: No Dysuria, No Frequency, No Incontinence, No Hematuria, No Retention, No Other Musculoskeletal: No other, No neck pain, No shoulder pain, No arm pain, No back pain, No hand pain, No leg pain, No foot pain Skin: No Rash, No Lesions, No Jaundice, No Bruising, No Other Vital Signs Vital Signs Date Time Temp Pulse Resp B/P (MAP) Pulse Ox O2 Delivery O2 Flow Rate FiO2 12/09/24 09:18 163/77 12/09/24 09:18 65 12/09/24 08:30 98.8 18 99 98.8 12/09/24 05:50 Nasal Cannula* 3 32 Physical Exam General Appearance: Cooperative. Well developed. Well nourished. NAD Head Exam: Normal inspection Neck Exam: Normal inspection. Non-tender. Normal alignment Pulmonary/Respiratory: Chest non-tender. Clear bilateral breath sounds, no crac kles, no wheezing. Cardiovascular/Chest: Regular rate and rhythm. Diastolic murmur. No JVD. Peripheral Pulses: 2+ Radial (R). 2+ Radial (L). 2+ Pedal (R). 2+ Pedal (L) Abdominal Exam: Normal bowel sounds. Soft. normal abdomen, no visible veins, Nontender. No hepatospenomegaly. No masses Ankle Exam: 2+ ankle edema Lower extremities: 2+ lower extremity edema up to the knees Neuro/Mental Status: A&O x4. Coherent. Thoughts/Psych: Normal thought pattern. Appropriate mood and affect. Good judgement and insight Skin Exam: Normal inspection. Normal color. Warm. Dry. Minimal visible erythema around dialysis catheter site, no tenderness. Sacral wound x3 noted Labs/Diagnostic Data Labs Test 12/09/24 06:52 12/09/24 00:29 12/08/24 13:32 12/08/24 11:51 Range/Units White Blood Count 24.1 H 4.4-10.8 10^3/uL Red Blood Count 2.86 L 4.5-5.90 10^6/uL Hemoglobin 8.0 L 13.5-17.5 g/dL Hematocrit 25.2 L 41.0-53.0 % Mean Corpuscular Volume 87.9 80.0-100.0 fL Mean Corpuscular Hemoglobin 28.0 28.0-32.0 pg Mean Corpuscular Hemoglobin Concent 31.9 L 32.0-36.0 g/dL Red Cell Distribution Width 21.3 H 11.8-14.3 % Platelet Count 160 140-450 10^3/uL Mean Platelet Volume 8.4 6.9-10.8 fL Neutrophils (%) (Auto) 80.3 H 37.0-80.0 % Lymphocytes (%) (Auto) 6.7 L 10.0-50.0 % Monocytes (%) (Auto) 10.7 0.0-12.0 % Eosinophils (%) (Auto) 2.2 0.0-7.0 % Basophils (%) (Auto) 0.1 0.0-2.0 % Neutrophils # (Auto) 19.3 H 1.6-8.6 10 ^3/uL Lymphocytes # (Auto) 1.6 0.4-5.4 10 ^3/uL Monocytes # (Auto) 2.6 H 0-1.3 10 ^3/uL Eosinophils # (Auto) 0.5 0-0.8 10 ^3/uL Basophils # (Auto) 0 0-0.2 10 ^3/uL Nucleated Red Blood Cells 0.0 % Sodium Level 137 136-145 mmol/L Potassium Level 6.0 *H 3.5-5.1 mmol/L Chloride Level 100 98-107 mmol/L Carbon Dioxide Level 27 20-31 mmol/L Anion Gap 10 5-15 Blood Urea Nitrogen 84 #*H 9-23 mg/dL Creatinine 3.79 H 0.700-1.30 mg/dL Glomerular Filtration Rate Calc 18 >90 mL/min BUN/Creatinine Ratio 22.2 H 10.0-20.0 Serum Glucose 80 74-106 mg/dL Calcium Level 9.3 8.7-10.4 mg/dL Total Bilirubin 0.4 0.2-1.0 mg/dL Aspartate Amino Transferase (AST) 14 13-40 U/L Alanine Aminotransferase (ALT) 21 7-40 U/L Alkaline Phosphatase 56 46-116 U/L B-Type Natriuretic Peptide 2399.10 0-100 pg/mL Total Protein 5.6 L 5.7-8.2 g/dL Albumin 3.5 3.2-4.8 g/dL Random Vancomycin Level 23.8 H 5-10 ug/mL Troponin I High Sensitivity 57 *H </=54 ng/L Lactic Acid Level 1.2 0.4-2.0 mmol/L D-Dimer, Quantitative 2.21 H 0.0-0.49 mg/L FEU Microbiology Date/Time Source Procedure Growth Status 12/08/24 18:21 Buttock Gram Stain - Final Resulted 12/08/24 18:21 Buttock Wound Culture Pending Resulted Assessment Acute on chronic congestive Heart failure with reduced ejection fraction 25%; NYHA Class III Pulmonary edema CKD on hemodialysis 3 times a week Hyperkalemia due to above Sepsis possibly due to infected sacral wound versus pneumonia Bed-bound secondary to paraplegia Left heart catheterization completed in 2016 showed normal left main, left anterior descending, circumflex and obtuse marginal EKG shows sinus rhythm, incomplete left bundle-branch block and left ventricular hypertrophy Serial troponins 59, 63, 66, 57 Serum BNP 2399 Plan/Recommendation Extensively reviewed patient's charts from hospitalization at [facility] with Dr. Wang Discontinued losartan Hyperkalemia needs to be managed Nephrology recommendations appreciated (patient anuric at baseline) Continue carvedilol, Lasix, nifedipine Pending V/Q scan Continue wound care Continue antibiotics Rest of the management as per hospitalist Plan discussed with patient Plan discussed with Dr. 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 Allergies: Coded Allergies: NO KNOWN ALLERGIES (Unverified , 09/27/16) Home Meds Reported Medications Hydralazine Hcl (Hydralazine Hcl) 100 Mg Tab, 1 TAB PO TID for 60 Days, #180 12/09/24 Ferrous Sulfate (Ferosul) 325 Mg Tab, 1 TAB PO DAILY for 60 Days, #60 12/09/24 Furosemide (Furosemide) 40 Mg Tab, 1 TAB PO DAILY for 30 Days, #30 12/09/24 Sevelamer Carbonate (Sevelamer Carbonate) 800 Mg Tab, 3 TAB PO TID for 30 Days, #270 12/09/24 Doxazosin Mesylate (Doxazosin Mesylate) 2 Mg Tab, 1 TAB PO DAILY for 30 Days, #30 12/09/24 Sertraline HCl (Sertraline HCl) 50 Mg Tab, 1 TAB PO DAILY 12/08/24 Nifedipine (Nifedipine Er) 90 Mg Tab, 1 TAB PO DAILY 12/08/24 Carvedilol (Carvedilol) 25 Mg Tab, 1 TAB PO BID 12/08/24 Clonidine Hydrochloride (Clonidine Hcl) 0.2 Mg Tab, 1 TAB PO TID 12/08/24 Losartan Potassium (Losartan Potassium) 100 Mg Tab, 1 TAB PO DAILY 12/08/24 Plan/Recommendation we extensivly reviewed his [facility] chart as well requiring 30 mins of eval of chart pt had ct showing descending stent graft lvef 25-30% lhc at [facility] 2016 mild cad images personally reviewed cont sepsis tx check echo monitor bp Plan discussed with: Patient DENNISONMOHSEN Dec 09, 2024 10:47 TONIA WANG MD Dec 09, 2024 12:22
[2024-12-09] MEDS: MORPHINE SULFATE 4 MG/ML SYR/VIAL IV PRN (11:23)
--- NOTE | 2024-12-09 13:52 | DVHPN2 ---
Subjective 49-year-old male with a history of end-stage renal disease on hemodialysis, history of CHF last ejection fraction 25%, COPD, on home O2, history of aortic abdominal aneurysm repair 2 years ago, history of coronary artery disease with stents in the past, came here with shortness of breaths and chest pain He says he was getting Zosyn and vancomycin with dialysis for a infection of the decubitus ulcers that he has, he says he also had a thoracentesis and infection in his lung recently He was at [facility] for the wounds and he was sent on the IV antibiotics He is bed-bound and paraplegic due to surgery when he had his aortic aneurysm repair at [facility] 1-1/2 years ago Today's potassium is 6 Troponin is slightly elevated White count is 24.1 Changes from previous H/P or p: Changes Eyes: No Pain, No Vision change, No Conjunctivae inflammation, No Eyelid inflammation, No Other, No Redness ENT: No Ear pain, No Ear discharge, No Nose pain, No Nose discharge, No Nose congestion, No Mouth pain, No Mouth swelling, No Throat pain, No Throat swelling, No Other Cardiovascular: Chest Pain; No Palpitations; Orthopnea, Paroxysmal Noc. Dyspnea , Edema; No Lt Headedness, No Other Respiratory: No Cough, No Dry, No Shortness of breath, No SOB with excertion, No Wheezing, No Hemoptysis, No Pleuritic Pain, No Sputum, No Other Gastrointestinal: No Nausea, No Vomiting, No Abdominal Pain, No Diarrhea, No Constipation, No Melena, No Hematochezia, No Other Genitourinary: No Dysuria, No Frequency, No Incontinence, No Hematuria, No Retention, No Other Skin: Other (Multiple pressure injuries) Objective Vitals Vital Signs Date Time Temp Pulse Resp B/P (MAP) Pulse Ox O2 Delivery O2 Flow Rate FiO2 12/09/24 11:27 97 Nasal Cannula 3.0 12/09/24 11:25 32 12/09/24 11:24 78 22 12/09/24 11:23 148/68 12/09/24 08:30 98.8 98.8 Intake/Output Intake and Output 12/09/24 07:00 Intake Total 300 ml Output Total 1 ml Balance 299 ml Intake Oral 300 ml Output Stool Total 1 ml General Appearance: Alert, Oriented X3, Cooperative, No acute distress Lungs: Other (Bilateral rhonchi) Cardiovascular: Regular rate, Normal S1, Normal S2 Abdomen: Normal bowel sounds, Soft, No tenderness Extremities: Other (2+ edema bilaterally in the lower extremities) Medications Current Medications Medications Dose Ordered Sig/John Route Start Time Stop Time Status Last Admin Dose Admin Acetaminophen/ Hydrocodone Bitart 1 tab Q4HP PRN PO 12/08/24 17:00 Enoxaparin Sodium 40 mg DAILY SC 12/09/24 10:00 12/09/24 09:19 40 MG Acetaminophen 650 mg Q6HP PRN PO 12/08/24 17:00 Nitroglycerin 0.4 mg Q5MINP PRN SL 12/08/24 17:00 12/09/24 00:31 0.4 MG Morphine Sulfate 2 mg Q30M PRN IV 12/08/24 17:00 Vancomycin HCl 0 ml @ 0 mls/hr UD IV 12/08/24 17:30 Sertraline HCl 50 mg DAILY PO 12/09/24 10:00 12/09/24 09:19 50 MG Carvedilol 25 mg BID PO 12/08/24 22:00 12/09/24 09:18 25 MG Clonidine HCl 0.2 mg TID PO 12/08/24 22:00 12/09/24 05:52 0.2 MG Patient Own Medication 1 tab BID PO 12/08/24 22:00 Hold Piperacillin Sod/ Tazobactam Sod 50 ml @ 12.5 mls/hr Q12HR IV 12/08/24 22:00 12/09/24 09:19 12.5 MLS/HR Nicotine 1 patch DAILY TD 12/09/24 10:00 12/09/24 09:20 1 PATCH Albuterol 2.5 mg Q4HPRN PRN NEB 12/08/24 18:00 Albuterol 2.5 mg Q6HR NEB 12/08/24 18:00 12/09/24 11:24 2.5 MG Ipratropium [place] 0.5 mg Q4HPRN PRN NEB 12/08/24 18:00 Ipratropium [place] 0.5 mg Q6HR NEB 12/08/24 18:00 12/09/24 11:24 0.5 MG Furosemide 40 mg BIDD IV 12/09/24 06:00 12/09/24 06:08 40 MG Hydralazine HCl 10 mg Q6HP PRN IV 12/09/24 01:45 12/09/24 02:02 10 MG Nifedipine 90 mg DAILY PO 12/09/24 03:00 12/09/24 09:18 90 MG Morphine Sulfate 2 mg Q4HPRN PRN IV 12/09/24 11:15 12/09/24 11:23 2 MG Laboratory Results Laboratory Tests 12/09/24 06:52 Chemistry Test 12/09/24 06:52 Albumin 3.5 g/dL (3.2-4.8) Calcium Level 9.3 mg/dL (8.7-10.4) Total Protein 5.6 g/dL (5.7-8.2) L Cardiac Markers Test 12/09/24 06:52 B-Type Natriuretic Peptide 2399.10 pg/mL (0-100) LFT Test 12/09/24 06:52 Alanine Aminotransferase (ALT) 21 U/L (7-40) Alkaline Phosphatase 56 U/L (46-116) Aspartate Amino Transferase (AST) 14 U/L (13-40) Total Bilirubin 0.4 mg/dL (0.2-1.0) Microbiology Microbiology Date/Time Source Procedure Growth Status 12/08/24 18:21 Buttock Gram Stain - Final Resulted 12/08/24 18:21 Buttock Wound Culture Pending Resulted 12/08/24 13:32 Blood Blood Culture - Preliminary NO GROWTH AFTER 24 HOURS OF INCUBATION. Resulted Assessment/Plan Assessment/Plan Sepsis due to decubitus wounds infection End-stage renal disease on hemodialysis Hyperkalemia Decubitus nonhealing wounds of the sacrum and buttocks COPD Chronic respiratory failure on home O2 Coronary artery disease status post angioplasty in the past Ischemic cardiomyopathy last ejection fraction 25% Anxiety Anemia of chronic kidney disease Elevated troponin most likely NSTEMI type 2 Pulmonary edema due to fluid overload Fluid overload Plan Continue IV antibiotics with Zosyn and vancomycin Oxygen as needed Med neb treatments as needed Wound Care Give Lokelma 10 g p.o. now Hemodialysis per nephrology Consult Nephrology Lasix 40 mg IV twice a day Full code Advance directives discussed for 20 minutes Plan discussed with: Patient Date of Service: Dec 09, 2024 Billing Provider: MATIAS CUMMINS MD Common Visit Codes: [id number] INP/OBS CARE(HIGH) Secondary Visit Codes: [id number] CARE PLAN 30 MINUTES MATIAS CUMMINS MD Dec 09, 2024 13:52
[2024-12-09] MEDS: SODIUM ZIRCONIUM CYCL 10 GM PAK PO ONE (15:16)
--- NOTE | 2024-12-09 16:11 | DVHSR ---
APPROVED REPORT EXAM: Two-dimensional and M-mode echocardiogram with Doppler and color Doppler. Blood Pressure: 163/78 mmHg INDICATION Rule out CAD Surgery/Intervention Aortic aneurysm repair RISK FACTORS Obesity: Height: 5'10", Weight: 238 DIMENSIONS LVDd6.9 (3.8-5.7cm)LA (2D)4.5 (1.9-4.0cm)Aortic Root4.4 (2.0-3.7cm) LVDs5.3 (2.5-4.0cm)LA (MM) (1.9-4.0cm)Aortic Cusp Exc1.9 (1.5-2.0cm) EF (%) 45.0 (55-70%)Rt. Atrium4.3 (1.9-4.0cm)Asc. Aorta3.8 cm IVSd1.4 (0.7-1.1cm)RV (D)4.0 (1.8-2.4cm) PWd1.8 (0.7-1.1cm) Mitral Valve MitralMitral Stenosis E wave1.19m/sMV Mean GR.mmHg A wave1.05m/sMV Peak GR.mmHg E/A ratio1.12D MVAcm2 DECEL [id number] 1/2 Timems Aortic Valve Aortic ValveAortic Stenosis V10.78m/Domi Mean GR.9mmHg V21.79m/Domi Peak GR.13mmHg LVOT Diameter2.4 (1.8-2.4cm)Doppler AVA1.97cm2 Pulmonic Valve V21.11m/s Other Information Technically limited study due to Patient sitting up. Conclusion lvef 25-30% dilated LV moderate LVH RV notw well seen normal aortic valve trivial pericardial effusion ascending aorta normal size
[2024-12-09] MEDS: BUMETANIDE 2.5mg/10ml (0.25 mg/ml) INJ IV ONE (17:45)
--- NOTE | 2024-12-09 20:26 | DVHINCON2 ---
DATE OF CONSULTATION: 12/09/2024 CONSULTING PHYSICIAN: Dr. Almanza. REASON FOR CONSULTATION: Management of dialysis. HISTORY OF PRESENT ILLNESS: The patient is a 49-year-old gentleman who, unfortunately, has been in and out of the hospital multiple times over the last several weeks. Apparently, he is homeless. He is having other problems as well noncompliance. He spent several weeks at [facility] last month with fluid overload and hyperkalemia. He came to the hospital here apparently yesterday complaining of shortness of breath and fluid overload. We were not called about this consultation until an hour ago. They are requesting for us to handle his renal failure and arrange for dialysis. REVIEW OF SYSTEMS: Otherwise unremarkable. PAST MEDICAL HISTORY: Please review available records at [facility]. He has a long history of hypertension, end-stage renal disease, congestive heart failure, chronic bilateral edema, anemia, hyperparathyroidism, hyperlipidemia, chronic pain, hyperkalemia. SOCIAL HISTORY: Apparently, he is currently homeless. He denies smoking cigarettes or using illicit drugs. MEDICATIONS: Medications in the hospital include morphine, nicotine, sertraline, furosemide, nifedipine, hydralazine, clonidine, carvedilol, albuterol/ipratropium, and vancomycin. PHYSICAL EXAMINATION: VITAL SIGNS: Blood pressure is 116/61, heart rate 66, respirations 18, temperature 99. GENERAL: The patient is an adult gentleman who appears to be chronically ill, in no acute distress, alert and oriented x2. HEENT: Shows pale oral mucosa and conjunctiva. NECK: No jugular venous distention. LUNGS: Shows bilateral crackles. CARDIOVASCULAR: Shows regular rate with an S4 gallop. ABDOMEN: Soft and nontender. No organomegaly. No ascites. EXTREMITIES: Show no clubbing or cyanosis. He has 2+ edema. NEUROLOGIC: The patient is bedbound. LABORATORY FINDINGS: Sodium 137, potassium 6, BUN 84, creatinine 3.7. Hemoglobin 8. ASSESSMENT AND PLAN: * End-stage renal disease. * Fluid overload. * Hyperkalemia. * Anemia of renal disease. * Uncontrolled hypertension. The patient will be scheduled to have dialysis as soon as possible. I requested dialysis to be done today. Unfortunately, I was informed by the dialysis rn new graduate that they do not have enough dialysis nurses available for tonight. The patient will have to have dialysis as early as possible tomorrow morning. I was very clear about this. I told that his potassium is high and he needs to have dialysis as soon as possible. We will dialyze him with ultrafiltration goal of 3.5 liters and a low potassium bath. In the meantime, he will get medical treatment with Lokelma and albuterol nebulization treatments. I am also going to order Bumex 4 mg IV push x1. He should be on absolute fluid restriction of 1.2 liters a day, low potassium diet. We will continue with Bumex daily trying to improve his fluid overload. Thank you for the consult. MD JUDE Granado/GIRMA TID: [id number] RECEIPT: [id number]
[2024-12-09] MEDS: HYDROcodone-ACET 5/325MG TAB PO PRN (22:53)
[2024-12-10] VITALS (17 sets, daily range): BP systolic 131–149; BP diastolic 57–71; PULSE 60–71; RESP 18–22; TEMP 97.9–99.2; O2SAT 92–100
[2024-12-10 06:31] LABS: Basophils # (auto) 0 10 ^3/uL (0-0.2); Basophils % (auto) 0.2 % (0.0-2.0); Eosinophils # (auto) 0.5 10 ^3/uL (0-0.8); Eosinophils % (auto) 2.2 % (0.0-7.0); Hemoglobin 7.3 g/dL (13.5-17.5); Lymphocytes # (auto) 1.5 10 ^3/uL (0.4-5.4); Mean Corpuscular Hemoglobin 28.5 pg (28.0-32.0); Red Blood Cells 2.57 10^6/uL (4.5-5.90)
[2024-12-10 06:32] LABS: Alanine Aminotransferase 17 U/L (7-40); Albumin 3.3 g/dL (3.2-4.8); Alkaline Phosphatase 53 U/L (46-116); Anion Gap 13 (5-15); BUN/Creatinine Ratio 21.9 (10.0-20.0); Bilirubin, Total 0.3 mg/dL (0.2-1.0); Calcium 8.8 mg/dL (8.7-10.4); Carbon Dioxide 25 mmol/L (20-31); Glucose 105 mg/dL (74-106); Magnesium 2.4 mg/dL (1.6-2.6)
[2024-12-10 06:34] LABS: Hematocrit 22.6 % (41.0-53.0); Lymphocytes % (auto) 6.9 % (10.0-50.0); Mean Corpuscular Hgb Conc. 32.4 g/dL (32.0-36.0); Mean Corpuscular Volume 87.7 fL (80.0-100.0); Monocytes # (auto) 2.3 10 ^3/uL (0-1.3); Monocytes % (auto) 10.3 % (0.0-12.0); Neutrophils % (auto) 80.4 % (37.0-80.0); Platelet Count (auto) 152 10^3/uL (140-450); White Blood Cell 22.4 10^3/uL (4.4-10.8)
[2024-12-10 06:38] LABS: Aspartate Aminotransferase < 8 U/L (13-40); Chloride 96 mmol/L (98-107); Sodium 134 mmol/L (136-145); Total Protein 5.2 g/dL (5.7-8.2)
[2024-12-10 06:41] LABS: Blood Urea Nitrogen 96 mg/dL (9-23); Potassium 6.4 mmol/L (3.5-5.1)
[2024-12-10] MEDS: SODIUM CHL 0.9% 1000 ML BAG XX ONE (07:00)
--- NOTE | 2024-12-10 08:06 | ECG ---
[facility] Test Date: 2024-12-09 Test Time: 00:23:28 Pat Name: ROSSY GRAHAM Department: Respiratoy Room: 0245T A Gender: M Agent Ticketing Gate: JC : 1975 Requested By: BARBRA GRANDE Order Number: [id number] Reading MD: Harpreet Tierney Measurements Intervals Ackerman Rate: 65 P: 5 NE: 163 QRS: -28 QRSD: 115 T: 121 QT: 443 QTc: 461 Interpretive Statements Sinus rhythm Incomplete left bundle branch block LVH with secondary repolarization abnormality Electronically Signed On 12-11-2024 14:40:03 PDT by Harpreet Tierney Please click the below link to view image of tracing.
--- NOTE | 2024-12-10 10:28 | DVHPN2 ---
Subjective Potassium is 6.4 The patient is undergoing dialysis right now White count is still 22.4 Changes from previous H/P or p: Changes Eyes: No Pain, No Vision change, No Conjunctivae inflammation, No Eyelid inflammation, No Other, No Redness ENT: No Ear pain, No Ear discharge, No Nose pain, No Nose discharge, No Nose congestion, No Mouth pain, No Mouth swelling, No Throat pain, No Throat swelling, No Other Cardiovascular: Chest Pain; No Palpitations; Orthopnea, Paroxysmal Noc. Dyspnea , Edema; No Lt Headedness, No Other Respiratory: No Cough, No Dry, No Shortness of breath, No SOB with excertion, No Wheezing, No Hemoptysis, No Pleuritic Pain, No Sputum, No Other Gastrointestinal: No Nausea, No Vomiting, No Abdominal Pain, No Diarrhea, No Constipation, No Melena, No Hematochezia, No Other Genitourinary: No Dysuria, No Frequency, No Incontinence, No Hematuria, No Retention, No Other Skin: Other (Multiple pressure injuries) Objective Vitals Vital Signs Date Time Temp Pulse Resp B/P (MAP) Pulse Ox O2 Delivery O2 Flow Rate FiO2 12/10/24 09:54 74 143/67 12/10/24 08:00 Nasal Cannula* 3 32 12/10/24 07:18 92 12/10/24 06:21 18 12/10/24 01:00 98.5 98.5 Intake/Output Intake and Output 12/10/24 07:00 Intake Total 1845 ml Balance 1845 ml Intake Oral 1795 ml IV Total 50 ml # Bowel Movements 2 General Appearance: Alert, Oriented X3, Cooperative, No acute distress Lungs: Other (Bilateral rhonchi) Cardiovascular: Regular rate, Normal S1, Normal S2 Abdomen: Normal bowel sounds, Soft, No tenderness Extremities: Other (2+ edema bilaterally in the lower extremities) Medications Current Medications Medications Dose Ordered Sig/John Route Start Time Stop Time Status Last Admin Dose Admin Acetaminophen/ Hydrocodone Bitart 1 tab Q4HP PRN PO 12/08/24 17:00 12/10/24 09:55 1 TAB Enoxaparin Sodium 40 mg DAILY SC 12/09/24 10:00 12/10/24 09:55 40 MG Acetaminophen 650 mg Q6HP PRN PO 12/08/24 17:00 Nitroglycerin 0.4 mg Q5MINP PRN SL 12/08/24 17:00 12/09/24 00:31 0.4 MG Morphine Sulfate 2 mg Q30M PRN IV 12/08/24 17:00 Vancomycin HCl 0 ml @ 0 mls/hr UD IV 12/08/24 17:30 Sertraline HCl 50 mg DAILY PO 12/09/24 10:00 12/10/24 09:54 50 MG Carvedilol 25 mg BID PO 12/08/24 22:00 12/10/24 09:54 25 MG Clonidine HCl 0.2 mg TID PO 12/08/24 22:00 12/09/24 05:52 0.2 MG Piperacillin Sod/ Tazobactam Sod 50 ml @ 12.5 mls/hr Q12HR IV 12/08/24 22:00 12/09/24 21:31 12.5 MLS/HR Nicotine 1 patch DAILY TD 12/09/24 10:00 12/10/24 09:52 1 PATCH Albuterol 2.5 mg Q4HPRN PRN NEB 12/08/24 18:00 Albuterol 2.5 mg Q6HR NEB 12/08/24 18:00 12/10/24 06:13 2.5 MG Ipratropium [place] 0.5 mg Q4HPRN PRN NEB 12/08/24 18:00 Ipratropium [place] 0.5 mg Q6HR NEB 12/08/24 18:00 12/10/24 06:13 0.5 MG Hydralazine HCl 10 mg Q6HP PRN IV 12/09/24 01:45 12/09/24 02:02 10 MG Nifedipine 90 mg DAILY PO 12/09/24 03:00 12/10/24 09:53 90 MG Morphine Sulfate 2 mg Q4HPRN PRN IV 12/09/24 11:15 12/10/24 01:42 2 MG Laboratory Results Laboratory Tests 12/10/24 05:47 Chemistry Test 12/10/24 05:47 Albumin 3.3 g/dL (3.2-4.8) Calcium Level 8.8 mg/dL (8.7-10.4) Magnesium Level 2.4 mg/dL (1.6-2.6) Total Protein 5.2 g/dL (5.7-8.2) L LFT Test 12/10/24 05:47 Alanine Aminotransferase (ALT) 17 U/L (7-40) Alkaline Phosphatase 53 U/L (46-116) Aspartate Amino Transferase (AST) < 8 U/L (13-40) L Total Bilirubin 0.3 mg/dL (0.2-1.0) Microbiology Microbiology Date/Time Source Procedure Growth Status 12/08/24 18:21 Buttock Gram Stain - Final Resulted 12/08/24 18:21 Buttock Wound Culture Pending Resulted 12/08/24 13:32 Blood Blood Culture - Preliminary NO GROWTH AFTER 24 HOURS OF INCUBATION. Resulted Assessment/Plan Assessment/Plan Sepsis due to decubitus wounds infection End-stage renal disease on hemodialysis Hyperkalemia Decubitus nonhealing wounds of the sacrum and buttocks COPD Chronic respiratory failure on home O2 Coronary artery disease status post angioplasty in the past Ischemic cardiomyopathy last ejection fraction 25% Anxiety Anemia of chronic kidney disease Elevated troponin most likely NSTEMI type 2 Pulmonary edema due to fluid overload Fluid overload Plan Continue IV antibiotics with Zosyn and vancomycin Oxygen as needed Med neb treatments as needed Wound Care Give Lokelma 10 g p.o. now Hemodialysis per nephrology Consult Nephrology Lasix 40 mg IV twice a day Full code Advance directives discussed for 20 minutes 12/10/2024: Continue IV antibiotics Surgical consult Wound care Hemodialysis is under way right now Hyperkalemia Monitor closely Lasix Full code Plan discussed with: Patient My Orders Orders - MATIAS CUMMINS MD Procedure Category Date Status Time Cleanse Wound With ZAC 12/09/24 In Process Wound Clean 12:13 Wound Culture W/ Gs MICHELET 12/09/24 In Process 19:20 * Surgical Consult CONS 12/10/24 Verified Date of Service: Dec 10, 2024 Billing Provider: MATIAS CUMMINS MD Common Visit Codes: [id number] INP/OBS CARE(HIGH) MATIAS CUMMINS MD Dec 10, 2024 10:28
--- NOTE | 2024-12-10 11:19 | DVHPNRES ---
Progress Note Date Seen: Dec 10, 2024 Resident Creating Document: ROBE WONG RESIDENT Medical Necessity Reason Pt with a Central, PICC or Fol: Yes Subjective Review of Systems Patient seen and examined at bedside. Titrated O2 via NC down to 3 L. reports improvement in dyspnea from yesterday. Improvement in lower extremity edema from yesterday Objective vital signs Vital Sign Date Time Temp Pulse Resp B/P (MAP) Pulse Ox O2 Delivery O2 Flow Rate FiO2 12/10/24 10:00 96 Nasal Cannula* 2 28 12/10/24 09:54 74 143/67 12/10/24 09:00 98.1 18 98.1 Total Intake and Output 12/09/24 12/09/24 12/10/24 15:00 23:00 07:00 Intake Total 1330 ml 515 ml Balance 1330 ml 515 ml medications Current Medications Medications Dose Ordered Sig/John Route Start Time Stop Time Status Last Admin Dose Admin Acetaminophen/ Hydrocodone Bitart 1 tab Q4HP PRN PO 12/08/24 17:00 12/10/24 09:55 1 TAB Enoxaparin Sodium 40 mg DAILY SC 12/09/24 10:00 12/10/24 09:55 40 MG Acetaminophen 650 mg Q6HP PRN PO 12/08/24 17:00 Nitroglycerin 0.4 mg Q5MINP PRN SL 12/08/24 17:00 12/09/24 00:31 0.4 MG Morphine Sulfate 2 mg Q30M PRN IV 12/08/24 17:00 Vancomycin HCl 0 ml @ 0 mls/hr UD IV 12/08/24 17:30 Sertraline HCl 50 mg DAILY PO 12/09/24 10:00 12/10/24 09:54 50 MG Carvedilol 25 mg BID PO 12/08/24 22:00 12/10/24 09:54 25 MG Clonidine HCl 0.2 mg TID PO 12/08/24 22:00 12/09/24 05:52 0.2 MG Piperacillin Sod/ Tazobactam Sod 50 ml @ 12.5 mls/hr Q12HR IV 12/08/24 22:00 12/09/24 21:31 12.5 MLS/HR Nicotine 1 patch DAILY TD 12/09/24 10:00 12/10/24 09:52 1 PATCH Albuterol 2.5 mg Q4HPRN PRN NEB 12/08/24 18:00 Albuterol 2.5 mg Q6HR NEB 12/08/24 18:00 12/10/24 06:13 2.5 MG Ipratropium [place] 0.5 mg Q4HPRN PRN NEB 12/08/24 18:00 Ipratropium [place] 0.5 mg Q6HR NEB 12/08/24 18:00 12/10/24 06:13 0.5 MG Hydralazine HCl 10 mg Q6HP PRN IV 12/09/24 01:45 12/09/24 02:02 10 MG Nifedipine 90 mg DAILY PO 12/09/24 03:00 12/10/24 09:53 90 MG Morphine Sulfate 2 mg Q4HPRN PRN IV 12/09/24 11:15 12/10/24 01:42 2 MG Examination General Appearance: Cooperative. Well developed. Well nourished. NAD Head Exam: Normal inspection Neck Exam: Normal inspection. Non-tender. Normal alignment Pulmonary/Respiratory: Chest non-tender. Clear bilateral breath sounds, no crackles, no wheezing. Cardiovascular/Chest: Regular rate and rhythm. Diastolic murmur. No JVD. Peripheral Pulses: 2+ Radial (R). 2+ Radial (L). 2+ Pedal (R). 2+ Pedal (L) Abdominal Exam: Normal bowel sounds. Soft. normal abdomen, no visible veins, Nontender. No hepatospenomegaly. No masses Ankle Exam: 2+ ankle edema Lower extremities: 2+ lower extremity edema up to the knees, slightly improved from yesterday Neuro/Mental Status: A&O x4. Coherent. Thoughts/Psych: Normal thought pattern. Appropriate mood and affect. Good judgement and insight Skin Exam: Normal inspection. Normal color. Warm. Dry. Minimal visible erythema around dialysis catheter site, no tenderness. Sacral wound x3 noted laboratory and microbiology Laboratory Tests 12/10/24 05:47 Test 12/10/24 05:47 Range/Units Serum Glucose 105 74-106 mg/dL Microbiology Date/Time Source Procedure Growth Status 12/08/24 18:21 Buttock Gram Stain - Final Resulted 12/08/24 18:21 Buttock Wound Culture Pending Resulted 12/08/24 13:32 Blood Blood Culture - Preliminary NO GROWTH AFTER 24 HOURS OF INCUBATION. Resulted Labs and/or images reviewed: Labs reviewed by me, Image(s) reviewed by me Problem List/Assessment/Plan Problem List/Assessment/Plan Acute on chronic congestive Heart failure with reduced ejection fraction 25%; NYHA Class III Non-ischemic cardiomyopathy Left heart catheterization completed in 2017 showed normal left main, left anterior descending, circumflex and obtuse marginal Pulmonary edema CKD on hemodialysis 3 times a week Hyperkalemia due to above Sepsis possibly due to infected sacral wound History of aortic aneurysm repair, patient had CT showing descending stent graft Bed-bound secondary to paraplegia EKG shows sinus rhythm, incomplete left bundle-branch block and left ventricular hypertrophy Serial troponins 59, 63, 66, 57 Serum BNP 2399 Plan/Recommendation Extensively reviewed patient's charts from hospitalization at [facility] with Dr. Terry Echocardiogram: EF 25-30%. Dilated left ventricle. Moderate left ventricular hypertrophy. Right ventricle not well visualized. Trivial pericardial effusion. Discontinued losartan Hyperkalemia needs to be managed Nephrology recommendations appreciated (patient anuric at baseline) continue dialysis Continue carvedilol, Lasix, nifedipine started entresto Patient was previously on life vest before his aneurysm repair surgery Pending V/Q scan Continue wound care Continue antibiotics Monitor blood pressure Rest of the management as per hospitalist Thank you so much for the opportunity to consult on your patient. Cardiology team will follow the patient. In case of any questions or concerns please feel free to reach out. Plan discussed with Dr. Cullen The patient was discussed with Resident Physician Robe Wong. I have reviewed the documentation, discussed the case with the resident and agree with the resident's documentation except as noted. The Assessment and Plan were formulated with me. Plan discussed with: Patient, Other (RN) Dietary Evaluation Review Comments: 1. Encourage tight dietary sodium contraol. 2. Encourage higher protein diet for wound healing. 3. Provide Nepro 240 ml PO BID (each serving provided 425 kcal 19 g protein 174ml free water) as protein and Kcal support. 4. Needs home healthcare when D/C. Expected Outcomes/Goals: gadual wt loss, gradually healed wounds. Visit Coding Cardiology RES Date of Service: Dec 10, 2024 Billing Provider: ROBE WONG Cardiology Common Codes: [id number] HOSP CARE(High ROBE WONG Dec 10, 2024 11:19 NATHAN CULLEN DO Dec 10, 2024 20:40
--- NOTE | 2024-12-10 11:34 | DVHPN2 ---
Progress Note - Dictate Date Seen: Dec 10, 2024 Has the PT tested + for MRSA If YES, has PT been informed?: No Medical Necessity Reason Pt with a Central, PICC or Fol: No Subjective No new complaints vital signs Vital Sign Date Time Temp Pulse Resp B/P (MAP) Pulse Ox O2 Delivery O2 Flow Rate FiO2 12/10/24 10:00 96 Nasal Cannula* 2 28 12/10/24 09:54 74 143/67 12/10/24 09:00 98.1 18 98.1 Total Intake and Output 12/09/24 12/09/24 12/10/24 15:00 23:00 07:00 Intake Total 1330 ml 515 ml Balance 1330 ml 515 ml medications Current Medications Medications Dose Ordered Sig/John Route Start Time Stop Time Status Last Admin Dose Admin Acetaminophen/ Hydrocodone Bitart 1 tab Q4HP PRN PO 12/08/24 17:00 12/10/24 09:55 1 TAB Enoxaparin Sodium 40 mg DAILY SC 12/09/24 10:00 12/10/24 09:55 40 MG Acetaminophen 650 mg Q6HP PRN PO 12/08/24 17:00 Nitroglycerin 0.4 mg Q5MINP PRN SL 12/08/24 17:00 12/09/24 00:31 0.4 MG Morphine Sulfate 2 mg Q30M PRN IV 12/08/24 17:00 Vancomycin HCl 0 ml @ 0 mls/hr UD IV 12/08/24 17:30 Sertraline HCl 50 mg DAILY PO 12/09/24 10:00 12/10/24 09:54 50 MG Carvedilol 25 mg BID PO 12/08/24 22:00 12/10/24 09:54 25 MG Clonidine HCl 0.2 mg TID PO 12/08/24 22:00 12/09/24 05:52 0.2 MG Piperacillin Sod/ Tazobactam Sod 50 ml @ 12.5 mls/hr Q12HR IV 12/08/24 22:00 12/09/24 21:31 12.5 MLS/HR Nicotine 1 patch DAILY TD 12/09/24 10:00 12/10/24 09:52 1 PATCH Albuterol 2.5 mg Q4HPRN PRN NEB 12/08/24 18:00 Albuterol 2.5 mg Q6HR NEB 12/08/24 18:00 12/10/24 06:13 2.5 MG Ipratropium [place] 0.5 mg Q4HPRN PRN NEB 12/08/24 18:00 Ipratropium [place] 0.5 mg Q6HR NEB 12/08/24 18:00 12/10/24 06:13 0.5 MG Hydralazine HCl 10 mg Q6HP PRN IV 12/09/24 01:45 12/09/24 02:02 10 MG Nifedipine 90 mg DAILY PO 12/09/24 03:00 12/10/24 09:53 90 MG Morphine Sulfate 2 mg Q4HPRN PRN IV 12/09/24 11:15 12/10/24 01:42 2 MG objective GENERAL: The patient is an adult gentleman who appears to be chronically ill, in no acute distress, alert and oriented x2. HEENT: Shows pale oral mucosa and conjunctiva. NECK: No jugular venous distention. LUNGS: Shows bilateral crackles. CARDIOVASCULAR: Shows regular rate with an S4 gallop. ABDOMEN: Soft and nontender. No organomegaly. No ascites. EXTREMITIES: Show no clubbing or cyanosis. He has 2+ edema. NEUROLOGIC: The patient is bedbound. laboratory and microbiology Laboratory Tests 12/10/24 05:47 Test 12/10/24 05:47 Range/Units Serum Glucose 105 74-106 mg/dL Problem List ASSESSMENT AND PLAN: * End-stage renal disease. * Fluid overload. * Hyperkalemia. * Anemia of renal disease. * Uncontrolled hypertension. Will have dialysis today, as soon as possible. I requested dialysis to be done yesterday. Unfortunately, I was informed by the dialysis stain dipper that they did not have enough dialysis nurses available. We will dialyze him with ultrafiltration goal of 3.5 liters and a low potassium bath. He should be on absolute fluid restriction of 1.2 liters a day, low potassium diet. We will continue with Bumex daily trying to improve his fluid overload. Dietary Evaluation Review Comments: 1. Encourage tight dietary sodium contraol. 2. Encourage higher protein diet for wound healing. 3. Provide Nepro 240 ml PO BID (each serving provided 425 kcal 19 g protein 174ml free water) as protein and Kcal support. 4. Needs home healthcare when D/C. Expected Outcomes/Goals: gadual wt loss, gradually healed wounds. Plan discussed with: Patient ESA YOUNG MD Dec 10, 2024 11:34
--- NOTE | 2024-12-10 13:32 | DVHINCON2 ---
Consultation - Surgical Date Seen: Dec 10, 2024 Referring Physician Reason for Consultation sacral decubitus ulcers History of Present Illness History of Present Illness 49yo unfortunate male who had a ruptured AAA 1yr ago who was paraplegic and HD dependent 2/2 ESRD following life saving repair. He is nonambulatory and has no feeling in his LEs. Due to this and his multiple comorbid conditions, he has developed nonhealing sacral pressure wounds. Most of his care has been at [facility], with most recent admission 1wk ago after missing HD the previous sessions. During admission evaluation at [facility] he was found to have a WBC 20 and the sacral wounds appeared to be soiled and poorly healing. 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 Past Medical/Surgical History Past Medical/Surgical History For full detyails, see [place]'s records; HTN, CHF, ESRD, paraplegia, nonambulatory state, advanced sacral pressure wound, nonhealing b/l LE wounds surg hx: aortic aneurysm repair, insertion of R upper chest tunneled CVC Family and Social History Family and Social History per records h/o meth abuse, no etoh or tob family noncontributory Allergies and medications Allergies: Coded Allergies: NO KNOWN ALLERGIES (Unverified , 09/27/16) Home Meds Reported Medications Hydralazine Hcl (Hydralazine Hcl) 100 Mg Tab, 1 TAB PO TID for 60 Days, #180 12/09/24 Ferrous Sulfate (Ferosul) 325 Mg Tab, 1 TAB PO DAILY for 60 Days, #60 12/09/24 Furosemide (Furosemide) 40 Mg Tab, 1 TAB PO DAILY for 30 Days, #30 12/09/24 Sevelamer Carbonate (Sevelamer Carbonate) 800 Mg Tab, 3 TAB PO TID for 30 Days, #270 12/09/24 Doxazosin Mesylate (Doxazosin Mesylate) 2 Mg Tab, 1 TAB PO DAILY for 30 Days, #30 12/09/24 Sertraline HCl (Sertraline HCl) 50 Mg Tab, 1 TAB PO DAILY 12/08/24 Nifedipine (Nifedipine Er) 90 Mg Tab, 1 TAB PO DAILY 12/08/24 Carvedilol (Carvedilol) 25 Mg Tab, 1 TAB PO BID 12/08/24 Clonidine Hydrochloride (Clonidine Hcl) 0.2 Mg Tab, 1 TAB PO TID 12/08/24 Losartan Potassium (Losartan Potassium) 100 Mg Tab, 1 TAB PO DAILY 12/08/24 Review of systems Review of Systems: HEENT:Normal, CVS:Normal, RESPIRATORY:Normal, GI:Normal, :Normal, MSK:Abnormal, NEURO:Abnormal Examination Vital signs Vital Signs Date Time Temp Pulse Resp B/P (MAP) Pulse Ox O2 Delivery O2 Flow Rate FiO2 12/10/24 11:53 69 18 99 12/10/24 11:46 Nasal Cannula* 3 32 12/10/24 09:54 143/67 12/10/24 09:00 98.1 98.1 Medications Current Medications Medications (Trade) Dose Ordered Sig/John Route PRN Reason Start Time Stop Time Status Last Admin Sacubitril/ Valsartan (Entresto 24-26 Mg tab) 1 tab BID PO 12/10/24 22:00 UNV Laboratory Labs Test 12/10/24 05:47 12/09/24 06:52 12/09/24 00:29 12/08/24 13:32 Range/Units White Blood Count 22.4 H 4.4-10.8 10^3/uL Red Blood Count 2.57 L 4.5-5.90 10^6/uL Hemoglobin 7.3 L 13.5-17.5 g/dL Hematocrit 22.6 #L 41.0-53.0 % Mean Corpuscular Volume 87.7 80.0-100.0 fL Mean Corpuscular Hemoglobin 28.5 28.0-32.0 pg Mean Corpuscular Hemoglobin Concent 32.4 32.0-36.0 g/dL Red Cell Distribution Width 21.0 H 11.8-14.3 % Platelet Count 152 140-450 10^3/uL Mean Platelet Volume 8.2 6.9-10.8 fL Neutrophils (%) (Auto) 80.4 H 37.0-80.0 % Lymphocytes (%) (Auto) 6.9 L 10.0-50.0 % Monocytes (%) (Auto) 10.3 0.0-12.0 % Eosinophils (%) (Auto) 2.2 0.0-7.0 % Basophils (%) (Auto) 0.2 0.0-2.0 % Neutrophils # (Auto) 18.0 H 1.6-8.6 10 ^3/uL Lymphocytes # (Auto) 1.5 0.4-5.4 10 ^3/uL Monocytes # (Auto) 2.3 H 0-1.3 10 ^3/uL Eosinophils # (Auto) 0.5 0-0.8 10 ^3/uL Basophils # (Auto) 0 0-0.2 10 ^3/uL Nucleated Red Blood Cells 0.0 % Sodium Level 134 L 136-145 mmol/L Potassium Level 6.4 *H 3.5-5.1 mmol/L Chloride Level 96 L 98-107 mmol/L Carbon Dioxide Level 25 20-31 mmol/L Anion Gap 13 5-15 Blood Urea Nitrogen 96 #*H 9-23 mg/dL Creatinine 4.38 H 0.700-1.30 mg/dL Glomerular Filtration Rate Calc 15 >90 mL/min BUN/Creatinine Ratio 21.9 H 10.0-20.0 Serum Glucose 105 74-106 mg/dL Calcium Level 8.8 8.7-10.4 mg/dL Magnesium Level 2.4 1.6-2.6 mg/dL Total Bilirubin 0.3 0.2-1.0 mg/dL Aspartate Amino Transferase (AST) < 8 L 13-40 U/L Alanine Aminotransferase (ALT) 17 7-40 U/L Alkaline Phosphatase 53 46-116 U/L Total Protein 5.2 L 5.7-8.2 g/dL Albumin 3.3 3.2-4.8 g/dL Random Vancomycin Level 19.8 H 5-10 ug/mL B-Type Natriuretic Peptide 2399.10 0-100 pg/mL Troponin I High Sensitivity 57 *H </=54 ng/L Lactic Acid Level 1.2 0.4-2.0 mmol/L Test 12/08/24 11:51 Range/Units D-Dimer, Quantitative 2.21 H 0.0-0.49 mg/L FEU Microbiology Date/Time Source Procedure Growth Status 12/09/24 20:30 Coccyx Gram Stain - Final Resulted 12/09/24 20:30 Coccyx Wound Culture - Preliminary Resulted 12/08/24 13:32 Blood Blood Culture - Preliminary NO GROWTH AFTER 24 HOURS OF INCUBATION. Resulted Examination: GENERAL:Abnormal (ill appearing, nontoxic), HEENT:Normal, NECK:Normal, LUNGS:Normal (coarse b/l, unlabored), CVS:Normal, ABDOMEN:Normal, MSK:Abnormal (no motorsensory below the waist, multiple poorly healing wounds of b/l LE), SKIN:Abnormal (large sacral decubitus and b/l gluteal decubitus wounds, wheeping edema, exudate throughout, tracking/tunelling in lower portion, no abscess (see chart for wound pictures and full exam findings)), NEURO:Abnormal (no motorsens in b/l LE ) Problem List/Assessment/Plan Problems: (1) Paraplegia (2) ESRD (end stage renal disease) on dialysis (3) CHF (congestive heart failure) (4) Hyperkalemia (5) Protein calorie malnutrition (6) Homelessness (7) Nonhealing nonsurgical wound (8) Non-healing ulcer of multiple sites of lower extremity with necrosis of muscle (9) Nonhealing ulcer of multiple sites of right lower extremity with necrosis of muscle (10) Decubitus ulcer of ankle, unstageable (11) Decubitus ulcer of back (12) Decubitus ulcer of back, unstageable (13) ESRD needing dialysis (14) Acute pulmonary edema (15) Hypertension Assessment and Plan 49M w multiple comorbidities, paraplegia, ESRD on HD, CHF, poor medical compliance, protein-sangita malnutrition, chronic nonhealing wounds of the b/l LE and advanced sacral decubitus ulcers afebrile, WBC 20, Cxs negative thus far patient turned with bedside RN and wounds evaluated lower back/sacral wounds soiled w wheeping edema from anasarca likely due to missed HD exudate overlying wound base, no blaise necrosis or purulence appreciated no tracking visualized offered patient fecal diversion to help prevent further wound breakdown and enhance potential wound healing currently not canidate for tissue coverage needs aggressive bedside wound care and pressure reduction measures pt states he has had wound vacs previously but it was too difficult to manage due to fecal spillage causing poor seal and bleeding requiring transfusions he believes was started from the suction also would benefit for protein calorie supplementation/nutritional supplementation wound care team consult placed pressure reduction mattress ordered no surgical interventions indicated currently, will f/u wound care team assessment and recs Plan discussed with Plan discussed with: Patient, Other (bedside rn) Visit Coding Surgery Date of Service if different f: Dec 10, 2024 Billing Provider: MIR DIAZ MD Surgery Visit Codes: 10972 - INP CONSULT <80 MIN MIR DIAZ MD Dec 10, 2024 13:32
--- NOTE | 2024-12-10 14:51 | DVH ---
EXAM: NM NM VQ SCAN HISTORY: PULMONARY EMBOLISM COMPARISON: 12/08/2024 TECHNIQUE: 5.2 mCi of Tc99m MAA were utilized for the perfusion portion of the study. Ventilation images not ob tained. FINDINGS: Limited evaluation. Only perfusion images obtained. Perfusion of the left lung is present however d ecreased relative to the right lung. There is no obvious large defect within the left lung. Prior mahnaz st radiograph from 12/08/2024 demonstrates bilateral patchy airspace opacities, [id number] with moderate left pleural effusion. Given that there are no ventilation images for comparison, th is significantly limits evaluation. IMPRESSION: 1. Limited evaluation as above.
[2024-12-10] MEDS: SODIUM ZIRCONIUM CYCL 10 GM PAK PO ONE (14:56)
[2024-12-10] MEDS: HYDROGEL 60 GRAM GEL TOP SCH (21:28)
[2024-12-11] VITALS (17 sets, daily range): BP systolic 114–145; BP diastolic 62–68; PULSE 61–77; RESP 18–20; TEMP 97.9–99.1; O2SAT 92–100
[2024-12-11 06:25] LABS: Basophils # (auto) 0 10 ^3/uL (0-0.2); Basophils % (auto) 0.1 % (0.0-2.0); Eosinophils # (auto) 0.5 10 ^3/uL (0-0.8); Hemoglobin 7.5 g/dL (13.5-17.5); Platelet Count (auto) 152 10^3/uL (140-450)
[2024-12-11 06:27] LABS: Eosinophils % (auto) 2.5 % (0.0-7.0); Lymphocytes # (auto) 1.5 10 ^3/uL (0.4-5.4); Lymphocytes % (auto) 8.5 % (10.0-50.0); Mean Corpuscular Hemoglobin 28.3 pg (28.0-32.0); Mean Corpuscular Hgb Conc. 32.6 g/dL (32.0-36.0); Monocytes # (auto) 2.2 10 ^3/uL (0-1.3); Monocytes % (auto) 12.5 % (0.0-12.0); Neutrophils # (auto) 13.8 10 ^3/uL (1.6-8.6); Neutrophils % (auto) 76.4 % (37.0-80.0); Red Blood Cells 2.64 10^6/uL (4.5-5.90); Red Cell Distribution Width 20.9 % (11.8-14.3)
[2024-12-11 06:36] LABS: Alanine Aminotransferase 17 U/L (7-40); Albumin 3.2 g/dL (3.2-4.8); Alkaline Phosphatase 65 U/L (46-116); Anion Gap 14 (5-15); BUN/Creatinine Ratio 19.2 (10.0-20.0); Carbon Dioxide 27 mmol/L (20-31); Magnesium 2.3 mg/dL (1.6-2.6); Sodium 138 mmol/L (136-145)
[2024-12-11 06:42] LABS: Aspartate Aminotransferase 10 U/L (13-40); Bilirubin, Total 0.2 mg/dL (0.2-1.0); Blood Urea Nitrogen 78 mg/dL (9-23); Calcium 8.6 mg/dL (8.7-10.4); Chloride 97 mmol/L (98-107); Glucose 120 mg/dL (74-106); Potassium 5.5 mmol/L (3.5-5.1); Total Protein 5.3 g/dL (5.7-8.2)
--- NOTE | 2024-12-11 09:03 | DVHPNRES ---
Progress Note Date Seen: Dec 11, 2024 Resident Creating Document: MOHSEN DENNISON RESIDENT Has the PT tested + for MRSA If YES, has PT been informed?: No Medical Necessity Reason Pt with a Central, PICC or Fol: No Subjective Review of Systems Patient seen and examined at bedside. Titrated O2 via NC down to 3 L again. reports improvement in dyspnea from yesterday. Improved lower extremity edema. Objective vital signs Vital Sign Date Time Temp Pulse Resp B/P (MAP) Pulse Ox O2 Delivery O2 Flow Rate FiO2 12/11/24 08:45 98.2 65 19 131/66 (87) 97 98.2 12/11/24 06:52 Nasal Cannula* 4 36 Total Intake and Output 12/10/24 12/10/24 12/11/24 15:00 23:00 07:00 Intake Total 650 ml 350 ml Output Total 0 ml Balance 650 ml 350 ml medications Current Medications Medications Dose Ordered Sig/John Route Start Time Stop Time Status Last Admin Dose Admin Acetaminophen/ Hydrocodone Bitart 1 tab Q4HP PRN PO 12/08/24 17:00 12/10/24 21:27 1 TAB Acetaminophen 650 mg Q6HP PRN PO 12/08/24 17:00 Nitroglycerin 0.4 mg Q5MINP PRN SL 12/08/24 17:00 12/09/24 00:31 0.4 MG Morphine Sulfate 2 mg Q30M PRN IV 12/08/24 17:00 Vancomycin HCl 0 ml @ 0 mls/hr UD IV 12/08/24 17:30 Sertraline HCl 50 mg DAILY PO 12/09/24 10:00 12/10/24 09:54 50 MG Carvedilol 25 mg BID PO 12/08/24 22:00 12/10/24 21:27 25 MG Clonidine HCl 0.2 mg TID PO 12/08/24 22:00 12/10/24 21:27 0.2 MG Piperacillin Sod/ Tazobactam Sod 50 ml @ 12.5 mls/hr Q12HR IV 12/08/24 22:00 12/10/24 21:26 12.5 MLS/HR Nicotine 1 patch DAILY TD 12/09/24 10:00 12/10/24 09:52 1 PATCH Albuterol 2.5 mg Q4HPRN PRN NEB 12/08/24 18:00 Albuterol 2.5 mg Q6HR NEB 12/08/24 18:00 12/11/24 06:52 2.5 MG Ipratropium [place] 0.5 mg Q4HPRN PRN NEB 12/08/24 18:00 Ipratropium [place] 0.5 mg Q6HR NEB 12/08/24 18:00 12/11/24 06:52 0.5 MG Hydralazine HCl 10 mg Q6HP PRN IV 12/09/24 01:45 12/09/24 02:02 10 MG Nifedipine 90 mg DAILY PO 12/09/24 03:00 12/10/24 09:53 90 MG Morphine Sulfate 2 mg Q4HPRN PRN IV 12/09/24 11:15 12/11/24 02:26 2 MG Sacubitril/ Valsartan 1 tab BID PO 12/11/24 10:00 Wound Care/ Dressing Products 1 applic Q12HR TOP 12/10/24 22:00 12/10/24 21:28 1 APPLIC Heparin Sodium (Porcine) 5,000 units Q12HR SC 12/11/24 10:00 Examination General Appearance: Cooperative. Well developed. Well nourished. NAD Head Exam: Normal inspection Neck Exam: Normal inspection. Non-tender. Normal alignment Pulmonary/Respiratory: Chest non-tender. Clear bilateral breath sounds, no crackles, no wheezing. Cardiovascular/Chest: Regular rate and rhythm. Peripheral Pulses: 2+ Radial (R). 2+ Radial (L). 2+ Pedal (R). 2+ Pedal (L) Abdominal Exam: Normal bowel sounds. Soft. normal abdomen, no visible veins, Nontender. No hepatospenomegaly. No masses Ankle Exam: 1+ ankle edema Lower extremities: Trace lower extremity edema Neuro/Mental Status: A&O x4. Coherent. Thoughts/Psych: Normal thought pattern. Appropriate mood and affect. Good judgement and insight Skin Exam: Normal inspection. Normal color. Warm. Dry. Minimal visible erythema around dialysis catheter site, no tenderness. Sacral wound x3 noted laboratory and microbiology Laboratory Tests 12/11/24 05:27 Test 12/11/24 05:27 Range/Units Serum Glucose 120 H 74-106 mg/dL Microbiology Date/Time Source Procedure Growth Status 12/09/24 20:30 Coccyx Gram Stain - Final Resulted 12/09/24 20:30 Coccyx Wound Culture - Preliminary Resulted 12/08/24 13:32 Blood Blood Culture - Preliminary NO GROWTH AFTER 48 HOURS OF INCUBATION. Resulted Problem List/Assessment/Plan Problem List/Assessment/Plan Acute on chronic congestive Heart failure with reduced ejection fraction 25%; NYHA Class III Non-ischemic cardiomyopathy Left heart catheterization completed in 2016 showed normal left main, left anterior descending, circumflex and obtuse marginal Pulmonary edema CKD on hemodialysis 3 times a week Hyperkalemia due to above Sepsis possibly due to infected sacral wound History of aortic aneurysm repair, patient had CT showing descending stent graft Bed-bound secondary to paraplegia EKG shows sinus rhythm, incomplete left bundle-branch block and left ventricular hypertrophy Serial troponins 59, 63, 66, 57 Serum BNP 2399 Plan/Recommendation Extensively reviewed patient's charts from hospitalization at [facility] with Dr. Terry Echocardiogram: EF 25-30%. Dilated left ventricle. Moderate left ventricular hypertrophy. Right ventricle not well visualized. Trivial pericardial effusion. Discontinued losartan Hyperkalemia needs to be managed Nephrology recommendations appreciated (patient anuric at baseline) started entresto; patient would benefit from removal of as much potassium as possible during dialysis. Patient was previously on life vest before his aneurysm repair surgery Continue wound care Continue antibiotics Monitor blood pressure Rest of the management as per hospitalist Thank you so much for the opportunity to consult on your patient. Cardiology team will follow the patient. In case of any questions or concerns please feel free to reach out. Plan discussed with Dr. Lopez Plan discussed with: Patient, Other (RN) My Orders My Orders Orders - MOHSEN DENNISON RESIDENT Procedure Category Date Status Time Sacubitril-Valsartan PHA 12/11/24 In Process (Entresto 24-26 Mg 10:00 Pharmacy ZAC 12/10/24 In Process Clarification: 14:22 Heparin Sodium PHA 12/11/24 In Process (Porcine) 10:00 Dietary Evaluation Review Comments: 1. Encourage tight dietary sodium contraol. 2. Encourage higher protein diet for wound healing. 3. Provide Nepro 240 ml PO BID (each serving provided 425 kcal 19 g protein 174ml free water) as protein and Kcal support. 4. Needs home healthcare when D/C. Expected Outcomes/Goals: gadual wt loss, gradually healed wounds. Visit Coding Cardiology RES Date of Service: Dec 11, 2024 Billing Provider: LEONARD LOPEZ Sr., MD Cardiology Common Codes: [id number] HOSP CARE(MOHSEN Hammond RESIDENT Dec 11, 2024 09:02
[2024-12-11] MEDS: SACUBITRIL-VALSARTAN 24mg/26mg TAB PO SCH (10:30)
[2024-12-11] MEDS: HEPARIN SODIUM (PORCINE) 5000 UNITS/ML 1ML VIAL SC SCH (10:33)
[2024-12-11] MEDS: VANCOMYCIN 500mg/100mL 100 ML IV ONE (10:53)
--- NOTE | 2024-12-11 11:16 | DVHPN2 ---
Progress Note - Dictate Date Seen: Dec 11, 2024 Has the PT tested + for MRSA If YES, has PT been informed?: No Medical Necessity Reason Pt with a Central, PICC or Fol: No Subjective No new complaints vital signs Vital Sign Date Time Temp Pulse Resp B/P (MAP) Pulse Ox O2 Delivery O2 Flow Rate FiO2 12/11/24 10:50 65 19 137/66 12/11/24 08:45 98.2 97 98.2 12/11/24 06:52 Nasal Cannula* 4 36 Total Intake and Output 12/10/24 12/10/24 12/11/24 15:00 23:00 07:00 Intake Total 650 ml 350 ml Output Total 0 ml Balance 650 ml 350 ml medications Current Medications Medications Dose Ordered Sig/John Route Start Time Stop Time Status Last Admin Dose Admin Acetaminophen/ Hydrocodone Bitart 1 tab Q4HP PRN PO 12/08/24 17:00 12/10/24 21:27 1 TAB Acetaminophen 650 mg Q6HP PRN PO 12/08/24 17:00 Nitroglycerin 0.4 mg Q5MINP PRN SL 12/08/24 17:00 12/09/24 00:31 0.4 MG Morphine Sulfate 2 mg Q30M PRN IV 12/08/24 17:00 Vancomycin HCl 0 ml @ 0 mls/hr UD IV 12/08/24 17:30 Sertraline HCl 50 mg DAILY PO 12/09/24 10:00 12/11/24 10:32 50 MG Carvedilol 25 mg BID PO 12/08/24 22:00 12/11/24 10:32 25 MG Clonidine HCl 0.2 mg TID PO 12/08/24 22:00 12/10/24 21:27 0.2 MG Piperacillin Sod/ Tazobactam Sod 50 ml @ 12.5 mls/hr Q12HR IV 12/08/24 22:00 12/11/24 10:34 12.5 MLS/HR Nicotine 1 patch DAILY TD 12/09/24 10:00 12/11/24 10:33 1 PATCH Albuterol 2.5 mg Q4HPRN PRN NEB 12/08/24 18:00 Albuterol 2.5 mg Q6HR NEB 12/08/24 18:00 12/11/24 06:52 2.5 MG Ipratropium [place] 0.5 mg Q4HPRN PRN NEB 12/08/24 18:00 Ipratropium [place] 0.5 mg Q6HR NEB 12/08/24 18:00 12/11/24 06:52 0.5 MG Hydralazine HCl 10 mg Q6HP PRN IV 12/09/24 01:45 12/09/24 02:02 10 MG Nifedipine 90 mg DAILY PO 12/09/24 03:00 12/10/24 09:53 90 MG Morphine Sulfate 2 mg Q4HPRN PRN IV 12/09/24 11:15 12/11/24 10:50 2 MG Sacubitril/ Valsartan 1 tab BID PO 12/11/24 10:00 12/11/24 10:30 1 TAB Wound Care/ Dressing Products 1 applic Q12HR TOP 12/10/24 22:00 12/11/24 10:34 1 APPLIC Heparin Sodium (Porcine) 5,000 units Q12HR SC 12/11/24 10:00 12/11/24 10:33 5,000 UNITS objective GENERAL: The patient is an adult gentleman who appears to be chronically ill, in no acute distress, alert and oriented x2. HEENT: Shows pale oral mucosa and conjunctiva. NECK: No jugular venous distention. LUNGS: Shows bilateral crackles. CARDIOVASCULAR: Shows regular rate with an S4 gallop. ABDOMEN: Soft and nontender. No organomegaly. No ascites. EXTREMITIES: Show no clubbing or cyanosis. He has 2+ edema. NEUROLOGIC: The patient is bedbound. laboratory and microbiology Laboratory Tests 12/11/24 05:27 Test 12/11/24 05:27 Range/Units Serum Glucose 120 H 74-106 mg/dL Problem List ASSESSMENT AND PLAN: * End-stage renal disease. * Fluid overload. * Hyperkalemia. * Anemia of renal disease. * Uncontrolled hypertension. * Severe ischemic cardiomyopathy * CHF with systolic dysfunction * Chronic sacral wound/ulcer * Homelessness HD was done yesterday Continue TTS schedule Aggressive UF goals Low K diet Dietary Evaluation Review Comments: 1. Encourage tight dietary sodium contraol. 2. Encourage higher protein diet for wound healing. 3. Provide Nepro 240 ml PO BID (each serving provided 425 kcal 19 g protein 174ml free water) as protein and Kcal support. 4. Needs home healthcare when D/C. Expected Outcomes/Goals: gadual wt loss, gradually healed wounds. Plan discussed with: Patient ESA YOUNG MD Dec 11, 2024 11:16
--- NOTE | 2024-12-11 19:47 | DVHPN2 ---
Subjective c/o gynecomastia Changes from previous H/P or p: Changes Eyes: No Pain, No Vision change, No Conjunctivae inflammation, No Eyelid inflammation, No Other, No Redness ENT: No Ear pain, No Ear discharge, No Nose pain, No Nose discharge, No Nose congestion, No Mouth pain, No Mouth swelling, No Throat pain, No Throat swelling, No Other Cardiovascular: Chest Pain; No Palpitations; Orthopnea, Paroxysmal Noc. Dyspnea , Edema; No Lt Headedness, No Other Respiratory: No Cough, No Dry, No Shortness of breath, No SOB with excertion, No Wheezing, No Hemoptysis, No Pleuritic Pain, No Sputum, No Other Gastrointestinal: No Nausea, No Vomiting, No Abdominal Pain, No Diarrhea, No Constipation, No Melena, No Hematochezia, No Other Genitourinary: No Dysuria, No Frequency, No Incontinence, No Hematuria, No Retention, No Other Skin: Other (Multiple pressure injuries) Objective Vitals Vital Signs Date Time Temp Pulse Resp B/P (MAP) Pulse Ox O2 Delivery O2 Flow Rate FiO2 12/11/24 16:30 98.2 63 19 114/68 (83) 95 98.2 12/11/24 11:18 Nasal Cannula* 3 32 Intake/Output Intake and Output 12/11/24 07:00 Intake Total 1000 ml Output Total 0 ml Balance 1000 ml Intake Oral 900 ml IV Total 100 ml Output Urine Total 0 ml # Bowel Movements 3 General Appearance: Alert, Oriented X3, Cooperative, No acute distress Lungs: Other (Bilateral rhonchi) Cardiovascular: Regular rate, Normal S1, Normal S2 Abdomen: Normal bowel sounds, Soft, No tenderness Extremities: Other (2+ edema bilaterally in the lower extremities) Medications Current Medications Medications Dose Ordered Sig/John Route Start Time Stop Time Status Last Admin Dose Admin Acetaminophen/ Hydrocodone Bitart 1 tab Q4HP PRN PO 12/08/24 17:00 12/10/24 21:27 1 TAB Acetaminophen 650 mg Q6HP PRN PO 12/08/24 17:00 Nitroglycerin 0.4 mg Q5MINP PRN SL 12/08/24 17:00 12/09/24 00:31 0.4 MG Morphine Sulfate 2 mg Q30M PRN IV 12/08/24 17:00 Vancomycin HCl 0 ml @ 0 mls/hr UD IV 12/08/24 17:30 Sertraline HCl 50 mg DAILY PO 12/09/24 10:00 12/11/24 10:32 50 MG Carvedilol 25 mg BID PO 12/08/24 22:00 12/11/24 10:32 25 MG Clonidine HCl 0.2 mg TID PO 12/08/24 22:00 12/11/24 14:00 0.2 MG Piperacillin Sod/ Tazobactam Sod 50 ml @ 12.5 mls/hr Q12HR IV 12/08/24 22:00 12/11/24 10:34 12.5 MLS/HR Nicotine 1 patch DAILY TD 12/09/24 10:00 12/11/24 10:33 1 PATCH Albuterol 2.5 mg Q4HPRN PRN NEB 12/08/24 18:00 Albuterol 2.5 mg Q6HR NEB 12/08/24 18:00 12/11/24 19:27 2.5 MG Ipratropium [place] 0.5 mg Q4HPRN PRN NEB 12/08/24 18:00 Ipratropium [place] 0.5 mg Q6HR NEB 12/08/24 18:00 12/11/24 19:27 0.5 MG Hydralazine HCl 10 mg Q6HP PRN IV 12/09/24 01:45 12/09/24 02:02 10 MG Nifedipine 90 mg DAILY PO 12/09/24 03:00 12/11/24 11:19 90 MG Morphine Sulfate 2 mg Q4HPRN PRN IV 12/09/24 11:15 12/11/24 10:50 2 MG Sacubitril/ Valsartan 1 tab BID PO 12/11/24 10:00 12/11/24 10:30 1 TAB Wound Care/ Dressing Products 1 applic Q12HR TOP 12/10/24 22:00 12/11/24 10:34 1 APPLIC Heparin Sodium (Porcine) 5,000 units Q12HR SC 12/11/24 10:00 12/11/24 10:33 5,000 UNITS Laboratory Results Laboratory Tests 12/11/24 05:27 Chemistry Test 12/11/24 05:27 Albumin 3.2 g/dL (3.2-4.8) Calcium Level 8.6 mg/dL (8.7-10.4) L Magnesium Level 2.3 mg/dL (1.6-2.6) Total Protein 5.3 g/dL (5.7-8.2) L Cardiac Markers Test 12/11/24 05:27 B-Type Natriuretic Peptide 691.47 pg/mL (0-100) LFT Test 12/11/24 05:27 Alanine Aminotransferase (ALT) 17 U/L (7-40) Alkaline Phosphatase 65 U/L (46-116) Aspartate Amino Transferase (AST) 10 U/L (13-40) L Total Bilirubin 0.2 mg/dL (0.2-1.0) Microbiology Microbiology Date/Time Source Procedure Growth Status 12/09/24 20:30 Coccyx Gram Stain - Final Resulted 12/09/24 20:30 Wound Culture - Preliminary Enterococcus faecium Resulted 12/08/24 13:32 Blood Blood Culture - Preliminary NO GROWTH AFTER 72 HOURS OF INCUBATION. Resulted Assessment/Plan Assessment/Plan Sepsis due to decubitus wounds infection End-stage renal disease on hemodialysis Hyperkalemia Decubitus nonhealing wounds of the sacrum and buttocks COPD Chronic respiratory failure on home O2 Coronary artery disease status post angioplasty in the past Ischemic cardiomyopathy last ejection fraction 25% Anxiety Anemia of chronic kidney disease Elevated troponin most likely NSTEMI type 2 Pulmonary edema due to fluid overload Fluid overload Plan Continue IV antibiotics with Zosyn and vancomycin Oxygen as needed Med neb treatments as needed Wound Care Give Lokelma 10 g p.o. now Hemodialysis per nephrology Consult Nephrology Lasix 40 mg IV twice a day Full code Advance directives discussed for 20 minutes 12/10/2024: Continue IV antibiotics Surgical consult Wound care Hemodialysis is under way right now Hyperkalemia Monitor closely Lasix Full code 12/11/24: Gynecomastia: most likely due to ESRD Check TSH, LH, HCG, estradiol, testosterone levels ESRD: HD IV antibiotics: Change to Zyvox ID consult Nonhealing nonsurgical wound: Surgical consult appreciated, medical Tx, Cx: Enterococcus and norma Fluid overload: HD Hyperkalemia: HD Sepsis: IV antibiotics Anemia: Stable Plan discussed with: Patient Date of Service: Dec 11, 2024 Billing Provider: MATIAS CUMMINS MD Common Visit Codes: [id number] INP/OBS CARE(HIGH) MATIAS CUMMINS MD Dec 11, 2024 19:47
[2024-12-11] MEDS: LINEZOLID 600MG/300ML 300 ML IV SCH (21:01)
[2024-12-12] VITALS (18 sets, daily range): BP systolic 120–175; BP diastolic 54–83; PULSE 60–85; RESP 16–19; TEMP 97.4–99.1; O2SAT 89–100
[2024-12-12 05:57] LABS: Basophils # (auto) 0.1 10 ^3/uL (0-0.2); Basophils % (auto) 0.3 % (0.0-2.0); Eosinophils # (auto) 0.4 10 ^3/uL (0-0.8); Hemoglobin 7.5 g/dL (13.5-17.5); Monocytes # (auto) 1.9 10 ^3/uL (0-1.3); Red Blood Cells 2.68 10^6/uL (4.5-5.90); Red Cell Distribution Width 20.8 % (11.8-14.3)
[2024-12-12 06:01] LABS: Eosinophils % (auto) 2.2 % (0.0-7.0); Hematocrit 23.3 % (41.0-53.0); Lymphocytes # (auto) 1.3 10 ^3/uL (0.4-5.4); Lymphocytes % (auto) 7.8 % (10.0-50.0); Mean Corpuscular Hemoglobin 28.2 pg (28.0-32.0); Mean Corpuscular Hgb Conc. 32.4 g/dL (32.0-36.0); Monocytes % (auto) 11.1 % (0.0-12.0); Neutrophils # (auto) 13.5 10 ^3/uL (1.6-8.6); Neutrophils % (auto) 78.6 % (37.0-80.0); Platelet Count (auto) 160 10^3/uL (140-450); White Blood Cell 17.2 10^3/uL (4.4-10.8)
[2024-12-12 06:17] LABS: Alanine Aminotransferase 16 U/L (7-40); Albumin 3.3 g/dL (3.2-4.8); Alkaline Phosphatase 68 U/L (46-116); Anion Gap 14 (5-15); BUN/Creatinine Ratio 19.6 (10.0-20.0); Carbon Dioxide 26 mmol/L (20-31); Magnesium 2.3 mg/dL (1.6-2.6); Sodium 137 mmol/L (136-145)
[2024-12-12 06:19] LABS: Chloride 97 mmol/L (98-107); Glucose 108 mg/dL (74-106)
[2024-12-12 06:20] LABS: Aspartate Aminotransferase < 8 U/L (13-40); Bilirubin, Total 0.3 mg/dL (0.2-1.0); Calcium 8.7 mg/dL (8.7-10.4); Total Protein 5.3 g/dL (5.7-8.2)
[2024-12-12 06:21] LABS: Potassium 6.2 mmol/L (3.5-5.1)
[2024-12-12 06:22] LABS: Beta HCG, Quantitative 0.9 mIU/mL (0-2); Blood Urea Nitrogen 92 mg/dL (9-23); Thyroid Stimulating Hormone 2.08 uIU/mL (0.55-4.78)
[2024-12-12] MEDS: SODIUM CHL 0.9% 1000 ML BAG XX ONE (07:00)
[2024-12-12] MEDS: SODIUM ZIRCONIUM CYCL 10 GM PAK PO ONE (08:02)
--- NOTE | 2024-12-12 09:47 | DVHPN2 ---
Subjective No new complaints K+: 6.2 Changes from previous H/P or p: Changes Eyes: No Pain, No Vision change, No Conjunctivae inflammation, No Eyelid inflammation, No Other, No Redness ENT: No Ear pain, No Ear discharge, No Nose pain, No Nose discharge, No Nose congestion, No Mouth pain, No Mouth swelling, No Throat pain, No Throat swelling, No Other Cardiovascular: Chest Pain; No Palpitations; Orthopnea, Paroxysmal Noc. Dyspnea , Edema; No Lt Headedness, No Other Respiratory: No Cough, No Dry, No Shortness of breath, No SOB with excertion, No Wheezing, No Hemoptysis, No Pleuritic Pain, No Sputum, No Other Gastrointestinal: No Nausea, No Vomiting, No Abdominal Pain, No Diarrhea, No Constipation, No Melena, No Hematochezia, No Other Genitourinary: No Dysuria, No Frequency, No Incontinence, No Hematuria, No Retention, No Other Skin: Other (Multiple pressure injuries) Objective Vitals Vital Signs Date Time Temp Pulse Resp B/P (MAP) Pulse Ox O2 Delivery O2 Flow Rate FiO2 12/12/24 09:00 98.2 63 16 155/71 (99) 94 98.2 12/12/24 07:14 Nasal Cannula* 2 28 Intake/Output Intake and Output 12/12/24 07:00 Intake Total 1320 ml Balance 1320 ml Intake Oral 970 ml IV Total 350 ml General Appearance: Alert, Oriented X3, Cooperative, No acute distress Lungs: Other (Bilateral rhonchi) Cardiovascular: Regular rate, Normal S1, Normal S2 Abdomen: Normal bowel sounds, Soft, No tenderness Extremities: Other (2+ edema bilaterally in the lower extremities) Medications Current Medications Medications Dose Ordered Sig/John Route Start Time Stop Time Status Last Admin Dose Admin Acetaminophen/ Hydrocodone Bitart 1 tab Q4HP PRN PO 12/08/24 17:00 12/10/24 21:27 1 TAB Acetaminophen 650 mg Q6HP PRN PO 12/08/24 17:00 Nitroglycerin 0.4 mg Q5MINP PRN SL 12/08/24 17:00 12/09/24 00:31 0.4 MG Morphine Sulfate 2 mg Q30M PRN IV 12/08/24 17:00 Sertraline HCl 50 mg DAILY PO 12/09/24 10:00 12/11/24 10:32 50 MG Carvedilol 25 mg BID PO 12/08/24 22:00 12/11/24 21:03 25 MG Clonidine HCl 0.2 mg TID PO 12/08/24 22:00 12/12/24 06:58 0.2 MG Nicotine 1 patch DAILY TD 12/09/24 10:00 12/11/24 10:33 1 PATCH Albuterol 2.5 mg Q4HPRN PRN NEB 12/08/24 18:00 Albuterol 2.5 mg Q6HR NEB 12/08/24 18:00 12/12/24 07:14 2.5 MG Ipratropium [place] 0.5 mg Q4HPRN PRN NEB 12/08/24 18:00 Ipratropium [place] 0.5 mg Q6HR NEB 12/08/24 18:00 12/12/24 07:14 0.5 MG Hydralazine HCl 10 mg Q6HP PRN IV 12/09/24 01:45 12/09/24 02:02 10 MG Nifedipine 90 mg DAILY PO 12/09/24 03:00 12/11/24 11:19 90 MG Morphine Sulfate 2 mg Q4HPRN PRN IV 12/09/24 11:15 12/12/24 04:35 2 MG Sacubitril/ Valsartan 1 tab BID PO 12/11/24 10:00 12/11/24 10:30 1 TAB Wound Care/ Dressing Products 1 applic Q12HR TOP 12/10/24 22:00 12/11/24 21:07 1 APPLIC Heparin Sodium (Porcine) 5,000 units Q12HR SC 12/11/24 10:00 12/11/24 21:04 5,000 UNITS Linezolid 300 ml @ 150 mls/hr Q12H IV 12/11/24 20:00 12/12/24 08:14 150 MLS/HR Laboratory Results Laboratory Tests 12/12/24 05:23 Chemistry Test 12/12/24 05:23 Albumin 3.3 g/dL (3.2-4.8) Calcium Level 8.7 mg/dL (8.7-10.4) Magnesium Level 2.3 mg/dL (1.6-2.6) Total Protein 5.3 g/dL (5.7-8.2) L LFT Test 12/12/24 05:23 Alanine Aminotransferase (ALT) 16 U/L (7-40) Alkaline Phosphatase 68 U/L (46-116) Aspartate Amino Transferase (AST) < 8 U/L (13-40) L Total Bilirubin 0.3 mg/dL (0.2-1.0) HgA1c, TSH Test 12/12/24 05:23 Thyroid Stimulating Hormone (TSH) 2.08 uIU/mL (0.55-4.78) Microbiology Microbiology Date/Time Source Procedure Growth Status 12/09/24 20:30 Coccyx Gram Stain - Final Resulted 12/09/24 20:30 Wound Culture - Preliminary Enterococcus faecium Resulted 12/08/24 13:32 Blood Blood Culture - Preliminary NO GROWTH AFTER 72 HOURS OF INCUBATION. Resulted Assessment/Plan Assessment/Plan Sepsis due to decubitus wounds infection End-stage renal disease on hemodialysis Hyperkalemia Decubitus nonhealing wounds of the sacrum and buttocks COPD Chronic respiratory failure on home O2 Coronary artery disease status post angioplasty in the past Ischemic cardiomyopathy last ejection fraction 25% Anxiety Anemia of chronic kidney disease Elevated troponin most likely NSTEMI type 2 Pulmonary edema due to fluid overload Fluid overload Plan Continue IV antibiotics with Zosyn and vancomycin Oxygen as needed Med neb treatments as needed Wound Care Give Lokelma 10 g p.o. now Hemodialysis per nephrology Consult Nephrology Lasix 40 mg IV twice a day Full code Advance directives discussed for 20 minutes 12/10/2024: Continue IV antibiotics Surgical consult Wound care Hemodialysis is under way right now Hyperkalemia Monitor closely Lasix Full code 12/11/24: Gynecomastia: most likely due to ESRD Check TSH, LH, HCG, estradiol, testosterone levels ESRD: HD IV antibiotics: Change to Zyvox ID consult Nonhealing nonsurgical wound: Surgical consult appreciated, medical Tx, Cx: Enterococcus and norma Fluid overload: HD Hyperkalemia: HD Sepsis: IV antibiotics Anemia: Stable 12/13/23: Hyperkalemia: Lokelma HD Nonhealing wound infection: VRE, continue Zyvox, ID consult Bed bound Fluid overload: HD today Plan discussed with: Patient My Orders Orders - MATIAS CUMMINS MD Procedure Category Date Status Time Estrogens Total LAB 12/12/24 In Process 08:00 Linezolid 600mg/300ml PHA 12/11/24 In Process (Zyvox) 20:00 * Infectious Eliana- Dr. GARCIA 12/11/24 Transmitted Mall[place] 19:46 Date of Service: Dec 12, 2024 Billing Provider: MATIAS CUMMINS MD Common Visit Codes: [id number] INP/OBS CARE(HIGH) MATIAS CUMMINS MD Dec 12, 2024 09:47
--- NOTE | 2024-12-12 11:38 | DVHINCON2 ---
Date of service: Dec 12, [address] Elizabeth Reason for Consultation Sacral decubitus ulcer History of Present Illness Patient is a 49-year-old male with a complex medical history including hypertension, congestive heart failure (EF 25%), coronary artery disease with prior LA and stenting, chronic kidney disease on hemodialysis, COPD, asthma, obesity, history of aortic aneurysm repair (2023), complicated by paraplegia, methamphetamine, marijuana, and tobacco use, presents to the ED with sharp, stabbing chest pain that began last night. He reports that the pain was relieved after taking one nitroglycerin tablet. The chest pain is associated with shortness of breath. Patient states he previously saw quenching car operator Dr. Malhotra but has not followed up in some time. He has a future appointment with Dr. Terry. He underwent left heart catheterization in 2016 showing clear coronaries and an EF of 25%. He had 1-2 stents placed in [id number] at [facility]. He under went aortic aneurysm repair in 2023, complicated by paraplegia and is now wheelchair-bound. He also reports multiple pressure injuries on buttocks and bilateral lower extremities Id is consulted for decub wounds. seen by surgery Past Surgical History Past Surgical History: AAA repair Family History: Patient reports no known family medical history. Social History Past Social History: Admits to tobacco use and marijuana use Ex Amphetamine use Allergies: Coded Allergies: NO KNOWN ALLERGIES (Unverified , 09/27/16) Home Meds Reported Medications Hydralazine Hcl (Hydralazine Hcl) 100 Mg Tab, 1 TAB PO TID for 60 Days, #180 12/09/24 Ferrous Sulfate (Ferosul) 325 Mg Tab, 1 TAB PO DAILY for 60 Days, #60 12/09/24 Furosemide (Furosemide) 40 Mg Tab, 1 TAB PO DAILY for 30 Days, #30 12/09/24 Sevelamer Carbonate (Sevelamer Carbonate) 800 Mg Tab, 3 TAB PO TID for 30 Days, #270 12/09/24 Doxazosin Mesylate (Doxazosin Mesylate) 2 Mg Tab, 1 TAB PO DAILY for 30 Days, #30 12/09/24 Sertraline HCl (Sertraline HCl) 50 Mg Tab, 1 TAB PO DAILY 12/08/24 Nifedipine (Nifedipine Er) 90 Mg Tab, 1 TAB PO DAILY 12/08/24 Carvedilol (Carvedilol) 25 Mg Tab, 1 TAB PO BID 12/08/24 Clonidine Hydrochloride (Clonidine Hcl) 0.2 Mg Tab, 1 TAB PO TID 12/08/24 Losartan Potassium (Losartan Potassium) 100 Mg Tab, 1 TAB PO DAILY 12/08/24 Current Medications Current Medications Medications (Trade) Dose Ordered Sig/John Route PRN Reason Start Time Stop Time Status Last Admin Linezolid 300 ml @ 150 mls/hr Q12H IV 12/11/24 20:00 12/12/24 08:14 Review of Systems Constitutional: Yes: Malaise; No: Fever, Chills, Sweats, Weakness, Other Eyes: No: Pain, Vision change, Conjunctivae inflammation, Eyelid inflammation, Other, Redness ENT: No: Ear pain, Ear discharge, Nose pain, Nose discharge, Nose congestion, Mouth pain, Mouth swelling, Throat pain, Throat swelling, Other Respiratory: No: Cough, Dry, Shortness of breath, SOB with excertion, Wheezing, Hemoptysis, Pleuritic Pain, Sputum, Wheezing, Other Cardiovascular: Chest Pain, Orthopnea, Paroxysmal Noc. Dyspnea, Edema; No: P alpitations, Lt Headedness, Other Gastrointestinal: No: Nausea, Vomiting, Abdominal Pain, Diarrhea, Constipation, Melena, Hematochezia, Other Genitourinary: No Dysuria, No Frequency, No Incontinence, No Hematuria, No Retention, No Other Skin: Other (Multiple pressure injuries) Neurological: Other (Paraplegia, wheelchair-bound) Vital Signs Vital Signs Date Time Temp Pulse Resp B/P (MAP) Pulse Ox O2 Delivery O2 Flow Rate FiO2 12/12/24 11:25 67 18 95 12/12/24 10:30 158/78 12/12/24 10:15 Nasal Cannula 3.0 12/12/24 10:15 32 12/12/24 09:00 98.2 98.2 Labs/Diagnostic Data Labs Test 12/12/24 11:04 12/12/24 05:23 12/11/24 05:27 12/11/24 02:35 Range/Units White Blood Count 17.2 H 4.4-10.8 10^3/uL Red Blood Count 2.68 L 4.5-5.90 10^6/uL Hemoglobin 7.5 L 13.5-17.5 g/dL Hematocrit 23.3 L 41.0-53.0 % Mean Corpuscular Volume 87.0 80.0-100.0 fL Mean Corpuscular Hemoglobin 28.2 28.0-32.0 pg Mean Corpuscular Hemoglobin Concent 32.4 32.0-36.0 g/dL Red Cell Distribution Width 20.8 H 11.8-14.3 % Platelet Count 160 140-450 10^3/uL Mean Platelet Volume 8.0 6.9-10.8 fL Neutrophils (%) (Auto) 78.6 37.0-80.0 % Lymphocytes (%) (Auto) 7.8 L 10.0-50.0 % Monocytes (%) (Auto) 11.1 0.0-12.0 % Eosinophils (%) (Auto) 2.2 0.0-7.0 % Basophils (%) (Auto) 0.3 0.0-2.0 % Neutrophils # (Auto) 13.5 H 1.6-8.6 10 ^3/uL Lymphocytes # (Auto) 1.3 0.4-5.4 10 ^3/uL Monocytes # (Auto) 1.9 H 0-1.3 10 ^3/uL Eosinophils # (Auto) 0.4 0-0.8 10 ^3/uL Basophils # (Auto) 0.1 0-0.2 10 ^3/uL Nucleated Red Blood Cells 0.0 % Sodium Level 137 136-145 mmol/L Potassium Level 6.2 *H 3.5-5.1 mmol/L Chloride Level 97 L 98-107 mmol/L Carbon Dioxide Level 26 20-31 mmol/L Anion Gap 14 5-15 Blood Urea Nitrogen 92 #*H 9-23 mg/dL Creatinine 4.70 H 0.700-1.30 mg/dL Glomerular Filtration Rate Calc 14 >90 mL/min BUN/Creatinine Ratio 19.6 10.0-20.0 Serum Glucose 108 H 74-106 mg/dL Calcium Level 8.7 8.7-10.4 mg/dL Magnesium Level 2.3 1.6-2.6 mg/dL Total Bilirubin 0.3 0.2-1.0 mg/dL Aspartate Amino Transferase (AST) < 8 L 13-40 U/L Alanine Aminotransferase (ALT) 16 7-40 U/L Alkaline Phosphatase 68 46-116 U/L Total Protein 5.3 L 5.7-8.2 g/dL Albumin 3.3 3.2-4.8 g/dL Thyroid Stimulating Hormone (TSH) 2.08 0.55-4.78 uIU/mL Beta HCG, Quantitative 0.9 0-2 mIU/mL B-Type Natriuretic Peptide 691.47 0-100 pg/mL Random Vancomycin Level 15.3 H 5-10 ug/mL POC Glucose 122 H 70-106 mg/dl Test 12/09/24 00:29 12/08/24 13:32 12/08/24 11:51 Range/Units Troponin I High Sensitivity 57 *H </=54 ng/L Lactic Acid Level 1.2 0.4-2.0 mmol/L D-Dimer, Quantitative 2.21 H 0.0-0.49 mg/L FEU Microbiology Date/Time Source Procedure Growth Status 12/09/24 20:30 Coccyx Gram Stain - Final Resulted 12/09/24 20:30 Wound Culture - Preliminary Enterococcus faecium Resulted 12/08/24 13:32 Blood Blood Culture - Preliminary NO GROWTH AFTER 72 HOURS OF INCUBATION. Resulted Assessment A 49-year-old male Sacral decubitus ulcer unstageable Leukocytosis Missed hemodialysis Paraplegia End-stage renal disease on hemodialysis Poor medical compliance Protein calorie malnutrition Edema/anasarca due to missed dialysis Recommendations Patient has nonhealing chronic decubitus wounds, he is evaluated by surgery who recommended aggressive wound care and no surgical debridement. Great and patient would be benefitted with fecal diversion to avoid soiling of the wound with feces The patient WBC count is improving possibly due to reactive process due to missed hemodialysis and stress. I do not recommend broad-spectrum long course of antibiotics hence it will only drive resistance as he is not a candidate for flap For now continue, will treat him for soft tissue infection. hence consider the course of additional one week. ( his cultures are also probably not reliable since he is frequently contaminated with feaces ) His wbc count seems to be trending down on Linezolid. Continue IV Linezolid. monitor platelets. covers staph aureus. Enterobacter probably fecal contamination / superficial wound. monitor platelets continue wound care frequent turns wound care clinic total time 80 minutes spent during the encounter. reviewed records, labs, notes. Plan discussed with team overall prognosis gaurded thank you for consultation Plan discussed with: Patient, Other LEV FIELDS MD Dec 12, 2024 11:38
--- NOTE | 2024-12-12 11:49 | DVHPN2 ---
Progress Note - Dictate Date Seen: Dec 12, 2024 Has the PT tested + for MRSA If YES, has PT been informed?: No Medical Necessity Reason Pt with a Central, PICC or Fol: No Subjective No new complaints vital signs Vital Sign Date Time Temp Pulse Resp B/P (MAP) Pulse Ox O2 Delivery O2 Flow Rate FiO2 12/12/24 11:25 67 18 95 12/12/24 10:30 158/78 12/12/24 10:15 Nasal Cannula 3.0 12/12/24 10:15 32 12/12/24 09:00 98.2 98.2 Total Intake and Output 12/11/24 12/11/24 12/12/24 15:00 23:00 07:00 Intake Total 50 ml 720 ml 550 ml Balance 50 ml 720 ml 550 ml medications Current Medications Medications Dose Ordered Sig/John Route Start Time Stop Time Status Last Admin Dose Admin Acetaminophen/ Hydrocodone Bitart 1 tab Q4HP PRN PO 12/08/24 17:00 12/10/24 21:27 1 TAB Acetaminophen 650 mg Q6HP PRN PO 12/08/24 17:00 Nitroglycerin 0.4 mg Q5MINP PRN SL 12/08/24 17:00 12/09/24 00:31 0.4 MG Morphine Sulfate 2 mg Q30M PRN IV 12/08/24 17:00 Sertraline HCl 50 mg DAILY PO 12/09/24 10:00 12/12/24 10:35 50 MG Carvedilol 25 mg BID PO 12/08/24 22:00 12/11/24 21:03 25 MG Clonidine HCl 0.2 mg TID PO 12/08/24 22:00 12/12/24 06:58 0.2 MG Nicotine 1 patch DAILY TD 12/09/24 10:00 12/12/24 10:35 1 PATCH Albuterol 2.5 mg Q4HPRN PRN NEB 12/08/24 18:00 Albuterol 2.5 mg Q6HR NEB 12/08/24 18:00 12/12/24 11:18 2.5 MG Ipratropium [place] 0.5 mg Q4HPRN PRN NEB 12/08/24 18:00 Ipratropium [place] 0.5 mg Q6HR NEB 12/08/24 18:00 12/12/24 11:19 0.5 MG Hydralazine HCl 10 mg Q6HP PRN IV 12/09/24 01:45 12/09/24 02:02 10 MG Nifedipine 90 mg DAILY PO 12/09/24 03:00 12/11/24 11:19 90 MG Morphine Sulfate 2 mg Q4HPRN PRN IV 12/09/24 11:15 12/12/24 10:30 2 MG Sacubitril/ Valsartan 1 tab BID PO 12/11/24 10:00 Hold 12/11/24 10:30 1 TAB Wound Care/ Dressing Products 1 applic Q12HR TOP 12/10/24 22:00 12/12/24 10:00 1 APPLIC Heparin Sodium (Porcine) 5,000 units Q12HR SC 12/11/24 10:00 12/12/24 10:36 5,000 UNITS Linezolid 300 ml @ 150 mls/hr Q12H IV 12/11/24 20:00 12/12/24 08:14 150 MLS/HR objective GENERAL: The patient is an adult gentleman who appears to be chronically ill, in no acute distress, alert and oriented x2. HEENT: Shows pale oral mucosa and conjunctiva. NECK: No jugular venous distention. LUNGS: Shows bilateral crackles. CARDIOVASCULAR: Shows regular rate with an S4 gallop. ABDOMEN: Soft and nontender. No organomegaly. No ascites. EXTREMITIES: Show no clubbing or cyanosis. He has 2+ edema. NEUROLOGIC: The patient is bedbound. laboratory and microbiology Laboratory Tests 12/12/24 05:23 Test 12/12/24 05:23 Range/Units Serum Glucose 108 H 74-106 mg/dL Problem List ASSESSMENT AND PLAN: * End-stage renal disease. * Fluid overload. * Hyperkalemia. Seems he cannot tolerate RAAS blockers * Anemia of renal disease. * Uncontrolled hypertension. * Severe ischemic cardiomyopathy * CHF with systolic dysfunction * Chronic sacral wound/ulcer * Homelessness HD today Stop RAAS blockers Strict Lowe K diet < 2 g/day Continue TTS schedule Aggressive UF goals Dietary Evaluation Review Comments: 1. Encourage tight dietary sodium contraol. 2. Encourage higher protein diet for wound healing. 3. Provide Nepro 240 ml PO BID (each serving provided 425 kcal 19 g protein 174ml free water) as protein and Kcal support. 4. Needs home healthcare when D/C. Expected Outcomes/Goals: gadual wt loss, gradually healed wounds. Plan discussed with: Patient ESA YOUNG MD Dec 12, 2024 11:49
--- NOTE | 2024-12-12 12:42 | DVHPNRES ---
Progress Note Date Seen: Dec 12, 2024 Resident Creating Document: MOHSEN DENNISON RESIDENT Has the PT tested + for MRSA If YES, has PT been informed?: No Medical Necessity Reason Pt with a Central, PICC or Fol: No Subjective Review of Systems Patient seen and examined at bedside. reports improvement in dyspnea from yesterday. Improved lower extremity edema. Scheduled to undergo dialysis today. Objective vital signs Vital Sign Date Time Temp Pulse Resp B/P (MAP) Pulse Ox O2 Delivery O2 Flow Rate FiO2 12/12/24 11:25 67 18 95 12/12/24 10:30 158/78 12/12/24 10:15 Nasal Cannula 3.0 12/12/24 10:15 32 12/12/24 09:00 98.2 98.2 Total Intake and Output 12/11/24 12/11/24 12/12/24 14:59 22:59 06:59 Intake Total 50 ml 720 ml 550 ml Balance 50 ml 720 ml 550 ml medications Current Medications Medications Dose Ordered Sig/John Route Start Time Stop Time Status Last Admin Dose Admin Acetaminophen/ Hydrocodone Bitart 1 tab Q4HP PRN PO 12/08/24 17:00 12/10/24 21:27 1 TAB Acetaminophen 650 mg Q6HP PRN PO 12/08/24 17:00 Nitroglycerin 0.4 mg Q5MINP PRN SL 12/08/24 17:00 12/09/24 00:31 0.4 MG Morphine Sulfate 2 mg Q30M PRN IV 12/08/24 17:00 Sertraline HCl 50 mg DAILY PO 12/09/24 10:00 12/12/24 10:35 50 MG Carvedilol 25 mg BID PO 12/08/24 22:00 12/11/24 21:03 25 MG Clonidine HCl 0.2 mg TID PO 12/08/24 22:00 12/12/24 06:58 0.2 MG Nicotine 1 patch DAILY TD 12/09/24 10:00 12/12/24 10:35 1 PATCH Albuterol 2.5 mg Q4HPRN PRN NEB 12/08/24 18:00 Albuterol 2.5 mg Q6HR NEB 12/08/24 18:00 12/12/24 11:18 2.5 MG Ipratropium [place] 0.5 mg Q4HPRN PRN NEB 12/08/24 18:00 Ipratropium [place] 0.5 mg Q6HR NEB 12/08/24 18:00 12/12/24 11:19 0.5 MG Hydralazine HCl 10 mg Q6HP PRN IV 12/09/24 01:45 12/09/24 02:02 10 MG Nifedipine 90 mg DAILY PO 12/09/24 03:00 12/11/24 11:19 90 MG Morphine Sulfate 2 mg Q4HPRN PRN IV 12/09/24 11:15 12/12/24 10:30 2 MG Wound Care/ Dressing Products 1 applic Q12HR TOP 12/10/24 22:00 12/12/24 10:00 1 APPLIC Heparin Sodium (Porcine) 5,000 units Q12HR SC 12/11/24 10:00 12/12/24 10:36 5,000 UNITS Linezolid 300 ml @ 150 mls/hr Q12H IV 12/11/24 20:00 12/12/24 08:14 150 MLS/HR Examination General Appearance: Cooperative. Well developed. Well nourished. NAD Head Exam: Normal inspection Neck Exam: Normal inspection. Non-tender. Normal alignment Pulmonary/Respiratory: Chest non-tender. Clear bilateral breath sounds, no crackles, no wheezing. Cardiovascular/Chest: Regular rate and rhythm. Peripheral Pulses: 2+ Radial (R). 2+ Radial (L). 2+ Pedal (R). 2+ Pedal (L) Abdominal Exam: Normal bowel sounds. Soft. normal abdomen, no visible veins, Nontender. No hepatospenomegaly. No masses Ankle Exam: 1+ ankle edema Lower extremities: Trace lower extremity edema Neuro/Mental Status: A&O x4. Coherent. Thoughts/Psych: Normal thought pattern. Appropriate mood and affect. Good judgement and insight Skin Exam: Normal inspection. Normal color. Warm. Dry. Minimal visible erythema around dialysis catheter site, no tenderness. Sacral wound x3 noted laboratory and microbiology Laboratory Tests 12/12/24 05:23 Test 12/12/24 05:23 Range/Units Serum Glucose 108 H 74-106 mg/dL Microbiology Date/Time Source Procedure Growth Status 12/09/24 20:30 Coccyx Gram Stain - Final Resulted 12/09/24 20:30 Wound Culture - Preliminary Enterococcus faecium Resulted 12/08/24 13:32 Blood Blood Culture - Preliminary NO GROWTH AFTER 72 HOURS OF INCUBATION. Resulted Labs and/or images reviewed: Labs reviewed by me, Image(s) reviewed by me Problem List/Assessment/Plan Problem List/Assessment/Plan Acute on chronic congestive Heart failure with reduced ejection fraction 25%; NYHA Class III Non-ischemic cardiomyopathy Left heart catheterization completed in 2017 showed normal left main, left anterior descending, circumflex and obtuse marginal Pulmonary edema CKD on hemodialysis 3 times a week Hyperkalemia due to above Sepsis possibly due to infected sacral wound History of aortic aneurysm repair, patient had CT showing descending stent graft Bed-bound secondary to paraplegia EKG shows sinus rhythm, incomplete left bundle-branch block and left ventricular hypertrophy Serial troponins 59, 63, 66, 57 Serum BNP 2399 Plan/Recommendation Held Entresto as patient's potassium 6.2 today Extensively reviewed patient's charts from hospitalization at [facility] with Dr. Wang Echocardiogram: EF 25-30%. Dilated left ventricle. Moderate left ventricular hypertrophy. Right ventricle not well visualized. Trivial pericardial effusion. Discontinued losartan Hyperkalemia needs to be managed Nephrology recommendations appreciated (patient anuric at baseline) Patient was previously on life vest before his aneurysm repair surgery Continue wound care Continue antibiotics Monitor blood pressure Rest of the management as per hospitalist Thank you so much for the opportunity to consult on your patient. Cardiology team will sign off. In case of any questions or concerns please feel free to reach out. Plan discussed with Dr. Wang Plan discussed with: Patient, Other (RN) Dietary Evaluation Review Comments: 1. Encourage tight dietary sodium contraol. 2. Encourage higher protein diet for wound healing. 3. Provide Nepro 240 ml PO BID (each serving provided 425 kcal 19 g protein 174ml free water) as protein and Kcal support. 4. Needs home healthcare when D/C. Expected Outcomes/Goals: gadual wt loss, gradually healed wounds. Visit Coding Cardiology RES Date of Service: Dec 12, 2024 Billing Provider: TONIA WANG MD Cardiology Common Codes: [id number](MOHS[facility] [place] RESIDENT Dec 12, 2024 12:42
[2024-12-12] MEDS: ONDANSETRON HCL 4 MG/2 ML VIAL IV PRN (18:29)
[2024-12-12] MEDS: LOSARTAN POTASSIUM 50 MG TAB PO ONE (18:30)
[2024-12-12] MEDS: EPOETIN ALFA-EPBX 4,000 UNIT/ML VIAL SC ONE (22:57)
[2024-12-13] VITALS (24 sets, daily range): BP systolic 142–184; BP diastolic 70–82; PULSE 61–73; RESP 16–18; TEMP 97.9–99.1; O2SAT 94–100
[2024-12-13] MEDS: ACETAMINOPHEN 325 MG TAB PO PRN (01:15)
[2024-12-13 06:00] LABS: Basophils # (auto) 0.1 10 ^3/uL (0-0.2); Basophils % (auto) 0.5 % (0.0-2.0); Eosinophils # (auto) 0.5 10 ^3/uL (0-0.8); Eosinophils % (auto) 3.4 % (0.0-7.0); Hematocrit 23.3 % (41.0-53.0); Hemoglobin 7.6 g/dL (13.5-17.5); Mean Corpuscular Hemoglobin 28.4 pg (28.0-32.0); Mean Corpuscular Hgb Conc. 32.8 g/dL (32.0-36.0); Mean Corpuscular Volume 86.9 fL (80.0-100.0); Monocytes # (auto) 1.6 10 ^3/uL (0-1.3); Monocytes % (auto) 11.6 % (0.0-12.0); Neutrophils # (auto) 10.8 10 ^3/uL (1.6-8.6); Neutrophils % (auto) 77.5 % (37.0-80.0); Platelet Count (auto) 169 10^3/uL (140-450); Red Blood Cells 2.68 10^6/uL (4.5-5.90); Red Cell Distribution Width 20.6 % (11.8-14.3)
[2024-12-13 06:13] LABS: Alanine Aminotransferase 16 U/L (7-40); Albumin 3.5 g/dL (3.2-4.8); Alkaline Phosphatase 72 U/L (46-116); Anion Gap 11 (5-15); BUN/Creatinine Ratio 16.7 (10.0-20.0); Bilirubin, Total 0.4 mg/dL (0.2-1.0); Calcium 9.4 mg/dL (8.7-10.4); Carbon Dioxide 29 mmol/L (20-31); Chloride 98 mmol/L (98-107); Glucose 100 mg/dL (74-106); Magnesium 2.1 mg/dL (1.6-2.6); Sodium 138 mmol/L (136-145)
[2024-12-13 06:16] LABS: Aspartate Aminotransferase 8 U/L (13-40); Blood Urea Nitrogen 61 mg/dL (9-23); Total Protein 5.7 g/dL (5.7-8.2)
[2024-12-13] MEDS: LOSARTAN POTASSIUM 50 MG TAB PO SCH (08:29)
--- NOTE | 2024-12-13 10:36 | DVHPN2 ---
Progress Note - Dictate Date Seen: Dec 13, 2024 Has the PT tested + for MRSA If YES, has PT been informed?: No Medical Necessity Reason Pt with a Central, PICC or Fol: No Subjective No new acute complaints noted. Dialysis was done yesterday White count is down to 14. Blood pressure elevated. vital signs Vital Sign Date Time Temp Pulse Resp B/P (MAP) Pulse Ox O2 Delivery O2 Flow Rate FiO2 12/13/24 09:56 97 Nasal Cannula 3.0 12/13/24 09:56 32 12/13/24 09:00 97.9 66 17 160/74 (102) 97.9 Total Intake and Output 12/12/24 12/12/24 12/13/24 15:00 23:00 07:00 Intake Total 300 ml 600 ml 900 ml Balance 300 ml 600 ml 900 ml medications Current Medications Medications Dose Ordered Sig/John Route Start Time Stop Time Status Last Admin Dose Admin Acetaminophen/ Hydrocodone Bitart 1 tab Q4HP PRN PO 12/08/24 17:00 12/10/24 21:27 1 TAB Acetaminophen 650 mg Q6HP PRN PO 12/08/24 17:00 12/13/24 01:15 650 MG Nitroglycerin 0.4 mg Q5MINP PRN SL 12/08/24 17:00 12/09/24 00:31 0.4 MG Morphine Sulfate 2 mg Q30M PRN IV 12/08/24 17:00 Sertraline HCl 50 mg DAILY PO 12/09/24 10:00 12/13/24 08:28 50 MG Carvedilol 25 mg BID PO 12/08/24 22:00 12/12/24 22:20 25 MG Clonidine HCl 0.2 mg TID PO 12/08/24 22:00 12/13/24 07:05 0.2 MG Nicotine 1 patch DAILY TD 12/09/24 10:00 12/12/24 10:35 1 PATCH Albuterol 2.5 mg Q4HPRN PRN NEB 12/08/24 18:00 Albuterol 2.5 mg Q6HR NEB 12/08/24 18:00 12/13/24 05:59 2.5 MG Ipratropium [place] 0.5 mg Q4HPRN PRN NEB 12/08/24 18:00 Ipratropium [place] 0.5 mg Q6HR NEB 12/08/24 18:00 12/13/24 05:59 0.5 MG Hydralazine HCl 10 mg Q6HP PRN IV 12/09/24 01:45 12/13/24 01:09 10 MG Nifedipine 90 mg DAILY PO 12/09/24 03:00 12/13/24 08:28 90 MG Morphine Sulfate 2 mg Q4HPRN PRN IV 12/09/24 11:15 12/13/24 05:50 2 MG Wound Care/ Dressing Products 1 applic Q12HR TOP 12/10/24 22:00 12/12/24 23:00 1 APPLIC Heparin Sodium (Porcine) 5,000 units Q12HR SC 12/11/24 10:00 12/12/24 22:31 5,000 UNITS Linezolid 300 ml @ 150 mls/hr Q12H IV 12/11/24 20:00 12/13/24 08:25 150 MLS/HR Losartan Potassium 50 mg DAILY PO 12/13/24 10:00 12/13/24 08:29 50 MG Ondansetron HCl 4 mg Q4HPRN PRN IV 12/12/24 18:00 12/12/24 18:29 4 MG objective General Appearance: Cooperative. Well developed. Well nourished. NAD Head Exam: Normal inspection Neck Exam: Normal inspection. Non-tender. Normal alignment Pulmonary/Respiratory: Chest non-tender. Clear bilateral breath sounds, no crackles, no wheezing. Cardiovascular/Chest: Regular rate and rhythm. Diastolic murmur. No JVD. Abdominal Exam: Normal bowel sounds. Soft. normal abdomen, no visible veins, Nontender. No hepatospenomegaly. No masses Ankle Exam: 2+ ankle edema Lower extremities: 2+ lower extremity edema up to the knees Neuro/Mental Status: A&O x4. Coherent. Thoughts/Psych: Normal thought pattern. Appropriate mood and affect. Good judgement and insight Skin Exam: Normal inspection. Normal color. Warm. Dry. Minimal visible erythema around dialysis catheter site, no tenderness. Sacral wound x3 noted laboratory and microbiology Laboratory Tests 12/13/24 05:32 Test 12/13/24 05:32 Range/Units Serum Glucose 100 74-106 mg/dL Assessment/Plan Patient is a 49-year-old male Sacral decubitus ulcer unstageable Leukocytosis Missed hemodialysis Paraplegia End-stage renal disease on hemodialysis Poor medical compliance Protein calorie malnutrition Edema/anasarca due to missed dialysis Recommendations Patient has nonhealing chronic decubitus wounds, he is evaluated by surgery who recommended aggressive wound care and no surgical debridement. Great and patient would be benefitted with fecal diversion to avoid soiling of the wound with feces The patient WBC count is improving possibly due to reactive process due to missed hemodialysis and stress. I do not recommend broad-spectrum long course of antibiotics hence it will only drive resistance as he is not a candidate for flap For now continue, will treat him for soft tissue infection. hence consider the course of additional one week. ( his cultures are also probably not reliable since he is frequently contaminated with feaces ) His wbc count seems to be trending down on Linezolid. Continue IV Linezolid. monitor platelets. covers staph aureus. Enterobacter probably fecal contamination / superficial wound. monitor platelets continue wound care frequent turns wound care clinic referral for oupt. On HD total time 50 minutes spent during the encounter. reviewed records, labs, notes. Plan discussed with team overall prognosis guarded Thank you for consultation Dietary Evaluation Review Comments: 1. Encourage tight dietary sodium contraol. 2. Encourage higher protein diet for wound healing. 3. Provide Nepro 240 ml PO BID (each serving provided 425 kcal 19 g protein 174ml free water) as protein and Kcal support. 4. Needs home healthcare when D/C. Expected Outcomes/Goals: gadual wt loss, gradually healed wounds. Plan discussed with: Other LEV FIELDS MD Dec 13, 2024 10:36
--- NOTE | 2024-12-13 10:48 | DVHPN2 ---
Progress Note - Dictate Date Seen: Dec 13, 2024 Has the PT tested + for MRSA If YES, has PT been informed?: No Medical Necessity Reason Pt with a Central, PICC or Fol: No Subjective No new complaints vital signs Vital Sign Date Time Temp Pulse Resp B/P (MAP) Pulse Ox O2 Delivery O2 Flow Rate FiO2 12/13/24 09:56 97 Nasal Cannula 3.0 12/13/24 09:56 32 12/13/24 09:00 97.9 66 17 160/74 (102) 97.9 Total Intake and Output 12/12/24 12/12/24 12/13/24 15:00 23:00 07:00 Intake Total 300 ml 600 ml 900 ml Balance 300 ml 600 ml 900 ml medications Current Medications Medications Dose Ordered Sig/John Route Start Time Stop Time Status Last Admin Dose Admin Acetaminophen/ Hydrocodone Bitart 1 tab Q4HP PRN PO 12/08/24 17:00 12/10/24 21:27 1 TAB Acetaminophen 650 mg Q6HP PRN PO 12/08/24 17:00 12/13/24 01:15 650 MG Nitroglycerin 0.4 mg Q5MINP PRN SL 12/08/24 17:00 12/09/24 00:31 0.4 MG Morphine Sulfate 2 mg Q30M PRN IV 12/08/24 17:00 Sertraline HCl 50 mg DAILY PO 12/09/24 10:00 12/13/24 08:28 50 MG Carvedilol 25 mg BID PO 12/08/24 22:00 12/12/24 22:20 25 MG Clonidine HCl 0.2 mg TID PO 12/08/24 22:00 12/13/24 07:05 0.2 MG Nicotine 1 patch DAILY TD 12/09/24 10:00 12/12/24 10:35 1 PATCH Albuterol 2.5 mg Q4HPRN PRN NEB 12/08/24 18:00 Albuterol 2.5 mg Q6HR NEB 12/08/24 18:00 12/13/24 05:59 2.5 MG Ipratropium [place] 0.5 mg Q4HPRN PRN NEB 12/08/24 18:00 Ipratropium [place] 0.5 mg Q6HR NEB 12/08/24 18:00 12/13/24 05:59 0.5 MG Hydralazine HCl 10 mg Q6HP PRN IV 12/09/24 01:45 12/13/24 01:09 10 MG Nifedipine 90 mg DAILY PO 12/09/24 03:00 12/13/24 08:28 90 MG Morphine Sulfate 2 mg Q4HPRN PRN IV 12/09/24 11:15 12/13/24 05:50 2 MG Wound Care/ Dressing Products 1 applic Q12HR TOP 12/10/24 22:00 12/12/24 23:00 1 APPLIC Heparin Sodium (Porcine) 5,000 units Q12HR SC 12/11/24 10:00 12/12/24 22:31 5,000 UNITS Linezolid 300 ml @ 150 mls/hr Q12H IV 12/11/24 20:00 12/13/24 08:25 150 MLS/HR Losartan Potassium 50 mg DAILY PO 12/13/24 10:00 12/13/24 08:29 50 MG Ondansetron HCl 4 mg Q4HPRN PRN IV 12/12/24 18:00 12/12/24 18:29 4 MG objective GENERAL: The patient is an adult gentleman who appears to be chronically ill, in no acute distress, alert and oriented x2. HEENT: Shows pale oral mucosa and conjunctiva. NECK: No jugular venous distention. LUNGS: Shows bilateral crackles. CARDIOVASCULAR: Shows regular rate with an S4 gallop. ABDOMEN: Soft and nontender. No organomegaly. No ascites. EXTREMITIES: Show no clubbing or cyanosis. He has 2+ edema. NEUROLOGIC: The patient is bedbound. laboratory and microbiology Laboratory Tests 12/13/24 05:32 Test 12/13/24 05:32 Range/Units Serum Glucose 100 74-106 mg/dL Problem List ASSESSMENT AND PLAN: * End-stage renal disease. * Fluid overload. * Hyperkalemia. Seems he cannot tolerate RAAS blockers * Anemia of renal disease. * Uncontrolled hypertension. * Severe ischemic cardiomyopathy * CHF with systolic dysfunction * Chronic sacral wound/ulcer * Homelessness HD again tomorrow Stop RAAS blockers including Entresto due to hyperkalemia Strict Low K diet < 2 g/day Aggressive UF goals Dietary Evaluation Review Comments: 1. Encourage tight dietary sodium contraol. 2. Encourage higher protein diet for wound healing. 3. Provide Nepro 240 ml PO BID (each serving provided 425 kcal 19 g protein 174ml free water) as protein and Kcal support. 4. Needs home healthcare when D/C. Expected Outcomes/Goals: gadual wt loss, gradually healed wounds. Plan discussed with: Patient ESA YOUNG MD Dec 13, 2024 10:48
--- NOTE | 2024-12-13 14:49 | DVHPN2 ---
Subjective Said he does not feel good today White count is down to 14 Potassium is 5.0 Blood pressure is high Dialysis was done yesterday Changes from previous H/P or p: Changes Eyes: No Pain, No Vision change, No Conjunctivae inflammation, No Eyelid inflammation, No Other, No Redness ENT: No Ear pain, No Ear discharge, No Nose pain, No Nose discharge, No Nose congestion, No Mouth pain, No Mouth swelling, No Throat pain, No Throat swelling, No Other Cardiovascular: Chest Pain; No Palpitations; Orthopnea, Paroxysmal Noc. Dyspnea , Edema; No Lt Headedness, No Other Respiratory: No Cough, No Dry, No Shortness of breath, No SOB with excertion, No Wheezing, No Hemoptysis, No Pleuritic Pain, No Sputum, No Other Gastrointestinal: No Nausea, No Vomiting, No Abdominal Pain, No Diarrhea, No Constipation, No Melena, No Hematochezia, No Other Genitourinary: No Dysuria, No Frequency, No Incontinence, No Hematuria, No Retention, No Other Skin: Other (Multiple pressure injuries) Objective Vitals Vital Signs Date Time Temp Pulse Resp B/P (MAP) Pulse Ox O2 Delivery O2 Flow Rate FiO2 12/13/24 14:15 61 172/78 (109) 12/13/24 13:00 98.4 17 95 98.4 12/13/24 11:49 Nasal Cannula* 3 32 Intake/Output Intake and Output 12/13/24 07:00 Intake Total 1800 ml Balance 1800 ml Intake Oral 1200 ml IV Total 600 ml # Voids 2 General Appearance: Alert, Oriented X3, Cooperative, No acute distress Lungs: Other (Bilateral rhonchi) Cardiovascular: Regular rate, Normal S1, Normal S2 Abdomen: Normal bowel sounds, Soft, No tenderness Extremities: Other (2+ edema bilaterally in the lower extremities) Medications Current Medications Medications Dose Ordered Sig/John Route Start Time Stop Time Status Last Admin Dose Admin Acetaminophen/ Hydrocodone Bitart 1 tab Q4HP PRN PO 12/08/24 17:00 12/10/24 21:27 1 TAB Acetaminophen 650 mg Q6HP PRN PO 12/08/24 17:00 12/13/24 01:15 650 MG Nitroglycerin 0.4 mg Q5MINP PRN SL 12/08/24 17:00 12/09/24 00:31 0.4 MG Morphine Sulfate 2 mg Q30M PRN IV 12/08/24 17:00 Sertraline HCl 50 mg DAILY PO 12/09/24 10:00 12/13/24 08:28 50 MG Carvedilol 25 mg BID PO 12/08/24 22:00 12/13/24 10:38 25 MG Clonidine HCl 0.2 mg TID PO 12/08/24 22:00 12/13/24 13:13 0.2 MG Nicotine 1 patch DAILY TD 12/09/24 10:00 12/13/24 10:00 1 PATCH Albuterol 2.5 mg Q4HPRN PRN NEB 12/08/24 18:00 Albuterol 2.5 mg Q6HR NEB 12/08/24 18:00 12/13/24 11:48 2.5 MG Ipratropium [place] 0.5 mg Q4HPRN PRN NEB 12/08/24 18:00 Ipratropium [place] 0.5 mg Q6HR NEB 12/08/24 18:00 12/13/24 11:48 0.5 MG Hydralazine HCl 10 mg Q6HP PRN IV 12/09/24 01:45 12/13/24 13:13 10 MG Nifedipine 90 mg DAILY PO 12/09/24 03:00 12/13/24 08:28 90 MG Morphine Sulfate 2 mg Q4HPRN PRN IV 12/09/24 11:15 12/13/24 11:16 2 MG Wound Care/ Dressing Products 1 applic Q12HR TOP 12/10/24 22:00 12/13/24 10:00 1 APPLIC Heparin Sodium (Porcine) 5,000 units Q12HR SC 12/11/24 10:00 12/13/24 10:00 5,000 UNITS Linezolid 300 ml @ 150 mls/hr Q12H IV 12/11/24 20:00 12/13/24 08:25 150 MLS/HR Losartan Potassium 50 mg DAILY PO 12/13/24 10:00 12/13/24 08:29 50 MG Ondansetron HCl 4 mg Q4HPRN PRN IV 12/12/24 18:00 12/13/24 13:07 4 MG Laboratory Results Laboratory Tests 12/13/24 05:32 Chemistry Test 12/13/24 05:32 Albumin 3.5 g/dL (3.2-4.8) Calcium Level 9.4 mg/dL (8.7-10.4) Magnesium Level 2.1 mg/dL (1.6-2.6) Total Protein 5.7 g/dL (5.7-8.2) LFT Test 12/13/24 05:32 Alanine Aminotransferase (ALT) 16 U/L (7-40) Alkaline Phosphatase 72 U/L (46-116) Aspartate Amino Transferase (AST) 8 U/L (13-40) L Total Bilirubin 0.4 mg/dL (0.2-1.0) Microbiology Microbiology Date/Time Source Procedure Growth Status 12/09/24 20:30 Coccyx Gram Stain - Final Complete 12/09/24 20:30 Wound Culture - Final Enterococcus faecium Methicillin Resistant S.aureus Enterobacter cloacae Complete 12/08/24 13:32 Blood Blood Culture - Final NO GROWTH AFTER 5 DAYS OF INCUBATION. Complete Assessment/Plan Assessment/Plan Sepsis due to decubitus wounds infection End-stage renal disease on hemodialysis Hyperkalemia Decubitus nonhealing wounds of the sacrum and buttocks COPD Chronic respiratory failure on home O2 Coronary artery disease status post angioplasty in the past Ischemic cardiomyopathy last ejection fraction 25% Anxiety Anemia of chronic kidney disease Elevated troponin most likely NSTEMI type 2 Pulmonary edema due to fluid overload Fluid overload Plan Continue IV antibiotics with Zosyn and vancomycin Oxygen as needed Med neb treatments as needed Wound Care Give Lokelma 10 g p.o. now Hemodialysis per nephrology Consult Nephrology Lasix 40 mg IV twice a day Full code Advance directives discussed for 20 minutes 12/10/2024: Continue IV antibiotics Surgical consult Wound care Hemodialysis is under way right now Hyperkalemia Monitor closely Lasix Full code 12/11/24: Gynecomastia: most likely due to ESRD Check TSH, LH, HCG, estradiol, testosterone levels ESRD: HD IV antibiotics: Change to Zyvox ID consult Nonhealing nonsurgical wound: Surgical consult appreciated, medical Tx, Cx: Enterococcus and norma Fluid overload: HD Hyperkalemia: HD Sepsis: IV antibiotics Anemia: Stable 12/12/24: Hyperkalemia: Lokelma HD Nonhealing wound infection: VRE, continue Zyvox, ID consult Bed bound Fluid overload: HD today 12/13/2024: Continue IV antibiotics Zyvox Increase losartan to 100 mg daily ESRD: Continue hemodialysis per nephrology Infectious disease consultation appreciated, continue Zyvox Monitor closely Wound care Plan discussed with: Patient My Orders Orders - MATIAS CUMMINS MD Procedure Category Date Status Time Losartan Tablet PHA 12/13/24 In Process (Cozaar Tablet) 10:00 Ondansetron Hcl PHA 12/12/24 In Process (Zofran) 18:00 Date of Service: Dec 13, 2024 Billing Provider: MATIAS CUMMINS MD Common Visit Codes: [id number] INP/OBS CARE(HIGH) MATIAS CUMMINS MD Dec 13, 2024 14:49
[2024-12-13] MEDS: LOSARTAN POTASSIUM 50 MG TAB PO ONE (15:48)
[2024-12-13] MEDS: ALBUTEROL SULF 2.5 MG/0.5ML(0.5%) NEB SOLN NEB PRN (16:05)
[2024-12-13] MEDS: IPRATROPIUM BROM 0.5 MG/2.5ML INH SOL NEB PRN (16:05)
[2024-12-14] VITALS (16 sets, daily range): BP systolic 142–176; BP diastolic 58–74; PULSE 59–73; RESP 16–18; TEMP 97.9–98.3; O2SAT 95–100
[2024-12-14 07:16] LABS: Basophils # (auto) 0.1 10 ^3/uL (0-0.2); Basophils % (auto) 0.3 % (0.0-2.0); Eosinophils # (auto) 0.6 10 ^3/uL (0-0.8); Eosinophils % (auto) 3.7 % (0.0-7.0); Hematocrit 23.6 % (41.0-53.0); Hemoglobin 7.5 g/dL (13.5-17.5); Lymphocytes # (auto) 1.1 10 ^3/uL (0.4-5.4); Lymphocytes % (auto) 7.4 % (10.0-50.0); Mean Corpuscular Hemoglobin 28.7 pg (28.0-32.0); Mean Corpuscular Hgb Conc. 31.7 g/dL (32.0-36.0); Mean Corpuscular Volume 90.7 fL (80.0-100.0); Monocytes # (auto) 1.3 10 ^3/uL (0-1.3); Monocytes % (auto) 8.5 % (0.0-12.0); Neutrophils # (auto) 12.4 10 ^3/uL (1.6-8.6); Neutrophils % (auto) 80.1 % (37.0-80.0); Nucleated Red Blood Cells % 0.2 %; Platelet Count (auto) 156 10^3/uL (140-450); Red Cell Distribution Width 20.3 % (11.8-14.3); White Blood Cell 15.5 10^3/uL (4.4-10.8)
[2024-12-14 07:22] LABS: Calcium 9.5 mg/dL (8.7-10.4); Sodium 137 mmol/L (136-145)
[2024-12-14 07:23] LABS: Anion Gap 15 (5-15); Carbon Dioxide 26 mmol/L (20-31)
[2024-12-14 07:24] LABS: Chloride 96 mmol/L (98-107); Potassium 5.4 mmol/L (3.5-5.1)
[2024-12-14 07:28] LABS: BUN/Creatinine Ratio 15.1 (10.0-20.0); Glucose 94 mg/dL (74-106)
[2024-12-14 07:29] LABS: Magnesium 2.3 mg/dL (1.6-2.6)
[2024-12-14 07:30] LABS: Blood Urea Nitrogen 62 mg/dL (9-23)
--- NOTE | 2024-12-14 12:06 | DVHPN2 ---
Progress Note - Dictate Date Seen: Dec 14, 2024 Has the PT tested + for MRSA If YES, has PT been informed?: No Medical Necessity Reason Pt with a Central, PICC or Fol: No Subjective No new complaints vital signs Vital Sign Date Time Temp Pulse Resp B/P (MAP) Pulse Ox O2 Delivery O2 Flow Rate FiO2 12/14/24 09:00 98.0 64 16 151/58 (89) 98 98.0 12/14/24 08:00 Nasal Cannula* 3 32 Total Intake and Output 12/13/24 12/13/24 12/14/24 15:00 23:00 07:00 Intake Total 1036 ml 200 ml Output Total 1 ml Balance 1035 ml 200 ml medications Current Medications Medications Dose Ordered Sig/John Route Start Time Stop Time Status Last Admin Dose Admin Acetaminophen/ Hydrocodone Bitart 1 tab Q4HP PRN PO 12/08/24 17:00 12/10/24 21:27 1 TAB Acetaminophen 650 mg Q6HP PRN PO 12/08/24 17:00 12/13/24 01:15 650 MG Nitroglycerin 0.4 mg Q5MINP PRN SL 12/08/24 17:00 12/09/24 00:31 0.4 MG Morphine Sulfate 2 mg Q30M PRN IV 12/08/24 17:00 Sertraline HCl 50 mg DAILY PO 12/09/24 10:00 12/13/24 08:28 50 MG Carvedilol 25 mg BID PO 12/08/24 22:00 12/13/24 21:34 25 MG Clonidine HCl 0.2 mg TID PO 12/08/24 22:00 12/14/24 05:36 0.2 MG Nicotine 1 patch DAILY TD 12/09/24 10:00 12/13/24 10:00 1 PATCH Albuterol 2.5 mg Q4HPRN PRN NEB 12/08/24 18:00 12/13/24 16:05 2.5 MG Albuterol 2.5 mg Q6HR NEB 12/08/24 18:00 12/14/24 07:26 2.5 MG Ipratropium [place] 0.5 mg Q4HPRN PRN NEB 12/08/24 18:00 12/13/24 16:05 0.5 MG Ipratropium [place] 0.5 mg Q6HR NEB 12/08/24 18:00 12/14/24 07:26 0.5 MG Hydralazine HCl 10 mg Q6HP PRN IV 12/09/24 01:45 12/13/24 13:13 10 MG Nifedipine 90 mg DAILY PO 12/09/24 03:00 12/13/24 08:28 90 MG Morphine Sulfate 2 mg Q4HPRN PRN IV 12/09/24 11:15 12/14/24 05:37 2 MG Wound Care/ Dressing Products 1 applic Q12HR TOP 12/10/24 22:00 12/13/24 21:37 1 APPLIC Heparin Sodium (Porcine) 5,000 units Q12HR SC 12/11/24 10:00 12/13/24 21:37 5,000 UNITS Linezolid 300 ml @ 150 mls/hr Q12H IV 12/11/24 20:00 12/14/24 09:30 150 MLS/HR Ondansetron HCl 4 mg Q4HPRN PRN IV 12/12/24 18:00 12/13/24 13:07 4 MG Losartan Potassium 100 mg DAILY PO 12/14/24 10:00 Guaifenesin/ Dextromethorphan 10 ml Q4HP PRN PO 12/14/24 10:00 objective GENERAL: The patient is an adult gentleman who appears to be chronically ill, in no acute distress, alert and oriented x2. HEENT: Shows pale oral mucosa and conjunctiva. NECK: No jugular venous distention. LUNGS: Shows bilateral crackles. CARDIOVASCULAR: Shows regular rate with an S4 gallop. ABDOMEN: Soft and nontender. No organomegaly. No ascites. EXTREMITIES: Show no clubbing or cyanosis. He has 2+ edema. NEUROLOGIC: The patient is bedbound. laboratory and microbiology Laboratory Tests 12/14/24 05:17 Test 12/14/24 05:17 Range/Units Serum Glucose 94 74-106 mg/dL Problem List ASSESSMENT AND PLAN: * End-stage renal disease. * Fluid overload. * Hyperkalemia. Seems he cannot tolerate RAAS blockers * Anemia of renal disease. * Uncontrolled hypertension. * Severe ischemic cardiomyopathy * CHF with systolic dysfunction * Chronic sacral wound/ulcer * Homelessness HD again tomorrow Stop RAAS blockers including Entresto due to hyperkalemia Strict Low K diet < 2 g/day Aggressive UF goals, 3.5 L today Dietary Evaluation Review Comments: 1. Encourage tight dietary sodium contraol. 2. Encourage higher protein diet for wound healing. 3. Provide Nepro 240 ml PO BID (each serving provided 425 kcal 19 g protein 174ml free water) as protein and Kcal support. 4. Needs home healthcare when D/C. Expected Outcomes/Goals: gadual wt loss, gradually healed wounds. Plan discussed with: Other ESA YOUNG MD Dec 14, 2024 12:06
--- NOTE | 2024-12-14 12:52 | DVHPN2 ---
Subjective Complains of cough and congestion Changes from previous H/P or p: Changes Eyes: No Pain, No Vision change, No Conjunctivae inflammation, No Eyelid inflammation, No Other, No Redness ENT: No Ear pain, No Ear discharge, No Nose pain, No Nose discharge, No Nose congestion, No Mouth pain, No Mouth swelling, No Throat pain, No Throat swelling, No Other Cardiovascular: Chest Pain; No Palpitations; Orthopnea, Paroxysmal Noc. Dyspnea , Edema; No Lt Headedness, No Other Respiratory: No Cough, No Dry, No Shortness of breath, No SOB with excertion, No Wheezing, No Hemoptysis, No Pleuritic Pain, No Sputum, No Other Gastrointestinal: No Nausea, No Vomiting, No Abdominal Pain, No Diarrhea, No Constipation, No Melena, No Hematochezia, No Other Genitourinary: No Dysuria, No Frequency, No Incontinence, No Hematuria, No Retention, No Other Skin: Other (Multiple pressure injuries) Objective Vitals Vital Signs Date Time Temp Pulse Resp B/P (MAP) Pulse Ox O2 Delivery O2 Flow Rate FiO2 12/14/24 10:00 98 Nasal Cannula* 3 32 12/14/24 09:00 98.0 64 16 151/58 (89) 98.0 Intake/Output Intake and Output 12/14/24 07:00 Intake Total 1236 ml Output Total 1 ml Balance 1235 ml Intake Oral 936 ml IV Total 300 ml Stool Total 1 ml # Voids 2 # Bowel Movements 1 General Appearance: Alert, Oriented X3, Cooperative, No acute distress Lungs: Other (Bilateral rhonchi) Cardiovascular: Regular rate, Normal S1, Normal S2 Abdomen: Normal bowel sounds, Soft, No tenderness Extremities: Other (2+ edema bilaterally in the lower extremities) Medications Current Medications Medications Dose Ordered Sig/John Route Start Time Stop Time Status Last Admin Dose Admin Acetaminophen/ Hydrocodone Bitart 1 tab Q4HP PRN PO 12/08/24 17:00 12/10/24 21:27 1 TAB Acetaminophen 650 mg Q6HP PRN PO 12/08/24 17:00 12/13/24 01:15 650 MG Nitroglycerin 0.4 mg Q5MINP PRN SL 12/08/24 17:00 12/09/24 00:31 0.4 MG Morphine Sulfate 2 mg Q30M PRN IV 12/08/24 17:00 Sertraline HCl 50 mg DAILY PO 12/09/24 10:00 12/13/24 08:28 50 MG Carvedilol 25 mg BID PO 12/08/24 22:00 12/13/24 21:34 25 MG Clonidine HCl 0.2 mg TID PO 12/08/24 22:00 12/14/24 05:36 0.2 MG Nicotine 1 patch DAILY TD 12/09/24 10:00 12/13/24 10:00 1 PATCH Albuterol 2.5 mg Q4HPRN PRN NEB 12/08/24 18:00 12/13/24 16:05 2.5 MG Albuterol 2.5 mg Q6HR NEB 12/08/24 18:00 12/14/24 07:26 2.5 MG Ipratropium [place] 0.5 mg Q4HPRN PRN NEB 12/08/24 18:00 12/13/24 16:05 0.5 MG Ipratropium [place] 0.5 mg Q6HR NEB 12/08/24 18:00 12/14/24 07:26 0.5 MG Hydralazine HCl 10 mg Q6HP PRN IV 12/09/24 01:45 12/13/24 13:13 10 MG Nifedipine 90 mg DAILY PO 12/09/24 03:00 12/13/24 08:28 90 MG Morphine Sulfate 2 mg Q4HPRN PRN IV 12/09/24 11:15 12/14/24 05:37 2 MG Wound Care/ Dressing Products 1 applic Q12HR TOP 12/10/24 22:00 12/13/24 21:37 1 APPLIC Heparin Sodium (Porcine) 5,000 units Q12HR SC 12/11/24 10:00 12/13/24 21:37 5,000 UNITS Linezolid 300 ml @ 150 mls/hr Q12H IV 12/11/24 20:00 12/14/24 09:30 150 MLS/HR Ondansetron HCl 4 mg Q4HPRN PRN IV 12/12/24 18:00 12/13/24 13:07 4 MG Losartan Potassium 100 mg DAILY PO 12/14/24 10:00 Guaifenesin/ Dextromethorphan 10 ml Q4HP PRN PO 12/14/24 10:00 Laboratory Results Laboratory Tests 12/14/24 05:17 Chemistry Test 12/14/24 05:17 Calcium Level 9.5 mg/dL (8.7-10.4) Magnesium Level 2.3 mg/dL (1.6-2.6) Microbiology Microbiology Date/Time Source Procedure Growth Status 12/09/24 20:30 Coccyx Gram Stain - Final Complete 12/09/24 20:30 Wound Culture - Final Enterococcus faecium Methicillin Resistant S.aureus Enterobacter cloacae Complete 12/08/24 13:32 Blood Blood Culture - Final NO GROWTH AFTER 5 DAYS OF INCUBATION. Complete Assessment/Plan Assessment/Plan Sepsis due to decubitus wounds infection End-stage renal disease on hemodialysis Hyperkalemia Decubitus nonhealing wounds of the sacrum and buttocks COPD Chronic respiratory failure on home O2 Coronary artery disease status post angioplasty in the past Ischemic cardiomyopathy last ejection fraction 25% Anxiety Anemia of chronic kidney disease Elevated troponin most likely NSTEMI type 2 Pulmonary edema due to fluid overload Fluid overload Plan Continue IV antibiotics with Zosyn and vancomycin Oxygen as needed Med neb treatments as needed Wound Care Give Lokelma 10 g p.o. now Hemodialysis per nephrology Consult Nephrology Lasix 40 mg IV twice a day Full code Advance directives discussed for 20 minutes 12/10/2024: Continue IV antibiotics Surgical consult Wound care Hemodialysis is under way right now Hyperkalemia Monitor closely Lasix Full code 12/11/24: Gynecomastia: most likely due to ESRD Check TSH, LH, HCG, estradiol, testosterone levels ESRD: HD IV antibiotics: Change to Zyvox ID consult Nonhealing nonsurgical wound: Surgical consult appreciated, medical Tx, Cx: Enterococcus and norma Fluid overload: HD Hyperkalemia: HD Sepsis: IV antibiotics Anemia: Stable 12/12/24: Hyperkalemia: Lokelma HD Nonhealing wound infection: VRE, continue Zyvox, ID consult Bed bound Fluid overload: HD today 12/13/2024: Continue IV antibiotics Zyvox Increase losartan to 100 mg daily ESRD: Continue hemodialysis per nephrology Infectious disease consultation appreciated, continue Zyvox Monitor closely Wound care 12/14/2024: Continue Zyvox Add Robitussin DM p.r.n. Continue other home medications Hemodialysis per nephrology Plan discussed with: Patient My Orders Orders - MATIAS CUMMINS MD Procedure Category Date Status Time Losartan Tablet PHA 12/14/24 In Process (Cozaar Tablet) 10:00 Guaifenesin-Dextromet PHA 12/14/24 In Process Liquid (Robitussin 10:00 Date of Service: Dec 14, 2024 Billing Provider: MATIAS CUMMINS MD Common Visit Codes: [id number] INP/OBS CARE(HIGH) MATIAS CUMMINS MD Dec 14, 2024 12:52
[2024-12-14] MEDS: guaiFENesin-DM 100/10mg/5ml SYR PO PRN (15:06)
[2024-12-14] MEDS: LOSARTAN POTASSIUM 50 MG TAB PO SCH (15:09)
[2024-12-14] MEDS: ERTAPENEM SOD INJ 0.5 GM in SODIUM CHL 0.9% 50 ML IV SCH (19:30)
--- NOTE | 2024-12-14 19:59 | DVHPN2 ---
Progress Note - Dictate Date Seen: Dec 14, 2024 Has the PT tested + for MRSA If YES, has PT been informed?: No Medical Necessity Reason Pt with a Central, PICC or Fol: No Subjective Patient reports mild cough and congestion. no fever or chills vital signs Vital Sign Date Time Temp Pulse Resp B/P (MAP) Pulse Ox O2 Delivery O2 Flow Rate FiO2 12/14/24 17:00 97.9 61 17 176/74 (108) 97 97.9 12/14/24 10:00 Nasal Cannula* 3 32 Total Intake and Output 12/13/24 12/13/24 12/14/24 15:00 23:00 07:00 Intake Total 1036 ml 200 ml Output Total 1 ml Balance 1035 ml 200 ml medications Current Medications Medications Dose Ordered Sig/John Route Start Time Stop Time Status Last Admin Dose Admin Acetaminophen/ Hydrocodone Bitart 1 tab Q4HP PRN PO 12/08/24 17:00 12/10/24 21:27 1 TAB Acetaminophen 650 mg Q6HP PRN PO 12/08/24 17:00 12/13/24 01:15 650 MG Nitroglycerin 0.4 mg Q5MINP PRN SL 12/08/24 17:00 12/09/24 00:31 0.4 MG Morphine Sulfate 2 mg Q30M PRN IV 12/08/24 17:00 Sertraline HCl 50 mg DAILY PO 12/09/24 10:00 12/14/24 15:07 50 MG Carvedilol 25 mg BID PO 12/08/24 22:00 12/14/24 15:07 25 MG Clonidine HCl 0.2 mg TID PO 12/08/24 22:00 12/14/24 15:08 0.2 MG Nicotine 1 patch DAILY TD 12/09/24 10:00 12/14/24 10:00 1 PATCH Albuterol 2.5 mg Q4HPRN PRN NEB 12/08/24 18:00 12/13/24 16:05 2.5 MG Albuterol 2.5 mg Q6HR NEB 12/08/24 18:00 12/14/24 18:20 2.5 MG Ipratropium [place] 0.5 mg Q4HPRN PRN NEB 12/08/24 18:00 12/13/24 16:05 0.5 MG Ipratropium [place] 0.5 mg Q6HR NEB 12/08/24 18:00 12/14/24 18:20 0.5 MG Hydralazine HCl 10 mg Q6HP PRN IV 12/09/24 01:45 12/13/24 13:13 10 MG Nifedipine 90 mg DAILY PO 12/09/24 03:00 12/14/24 15:10 90 MG Morphine Sulfate 2 mg Q4HPRN PRN IV 12/09/24 11:15 12/14/24 05:37 2 MG Wound Care/ Dressing Products 1 applic Q12HR TOP 12/10/24 22:00 12/13/24 21:37 1 APPLIC Heparin Sodium (Porcine) 5,000 units Q12HR SC 12/11/24 10:00 12/14/24 15:17 5,000 UNITS Linezolid 300 ml @ 150 mls/hr Q12H IV 12/11/24 20:00 12/14/24 09:30 150 MLS/HR Ondansetron HCl 4 mg Q4HPRN PRN IV 12/12/24 18:00 12/13/24 13:07 4 MG Losartan Potassium 100 mg DAILY PO 12/14/24 10:00 12/14/24 15:09 100 MG Guaifenesin/ Dextromethorphan 10 ml Q4HP PRN PO 12/14/24 10:00 12/14/24 15:06 10 ML Ertapenem 0.5 gm/ Sodium Chloride 50 ml @ 100 mls/hr DAILY IV 12/14/24 19:30 objective General Appearance: Cooperative. Well developed. Well nourished. NAD Head Exam: Normal inspection Neck Exam: Normal inspection. Non-tender. Normal alignment Pulmonary/Respiratory: Chest non-tender. Clear bilateral breath sounds, no crackles, no wheezing. Cardiovascular/Chest: Regular rate and rhythm. Diastolic murmur. No JVD. Abdominal Exam: Normal bowel sounds. Soft. normal abdomen, no visible veins, Nontender. No hepatospenomegaly. No masses Ankle Exam: 2+ ankle edema Lower extremities: 2+ lower extremity edema up to the knees Neuro/Mental Status: A&O x4. Coherent. Thoughts/Psych: Normal thought pattern. Appropriate mood and affect. Good judgement and insight Skin Exam: Normal inspection. Normal color. Warm. Dry. Minimal visible erythema around dialysis catheter site, no tenderness. Sacral wound x3 noted laboratory and microbiology Laboratory Tests 12/14/24 05:17 Test 12/14/24 05:17 Range/Units Serum Glucose 94 74-106 mg/dL Assessment/Plan Patient is a 49-year-old male Sacral decubitus ulcer unstageable Leukocytosis Missed hemodialysis Paraplegia End-stage renal disease on hemodialysis Poor medical compliance Protein calorie malnutrition Edema/anasarca due to missed dialysis Recommendations Start IV Ertapenem 0.5g Patient has nonhealing chronic decubitus wounds, he is evaluated by surgery who recommended aggressive wound care and no surgical debridement. Great and patient would be benefitted with fecal diversion to avoid soiling of the wound with feces The patient WBC count is improving possibly due to reactive process due to missed hemodialysis and stress. I do not recommend broad-spectrum long course of antibiotics hence it will only drive resistance as he is not a candidate for flap For now continue, will treat him for soft tissue infection. hence consider the course of additional one week. ( his cultures are also probably not reliable since he is frequently contaminated with feaces ) His wbc count seems to be trending down on Linezolid. Continue IV Linezolid. monitor platelets. covers staph aureus. Enterobacter probably fecal contamination / superficial wound. added IV Ertapenem 0.5g daily Monitor platelets [normal] continue wound care frequent turns wound care clinic referral as outpt on HD total time 50 minutes spent during the encounter. reviewed records, labs, notes. Plan discussed with team overall prognosis guarded Thank you for consultation Dietary Evaluation Review Comments: 1. Encourage tight dietary sodium contraol. 2. Encourage higher protein diet for wound healing. 3. Provide Nepro 240 ml PO BID (each serving provided 425 kcal 19 g protein 174ml free water) as protein and Kcal support. 4. Needs home healthcare when D/C. Expected Outcomes/Goals: gadual wt loss, gradually healed wounds. Plan discussed with: Other LEV FIELDS MD Dec 14, 2024 19:59
[2024-12-15] VITALS (17 sets, daily range): BP systolic 148–163; BP diastolic 57–70; PULSE 62–70; RESP 16–19; TEMP 97.1–98.5; O2SAT 95–100
[2024-12-15 05:31] LABS: Basophils % (auto) 0.4 % (0.0-2.0); Eosinophils # (auto) 0.4 10 ^3/uL (0-0.8); Eosinophils % (auto) 3.1 % (0.0-7.0); Hemoglobin 7.3 g/dL (13.5-17.5); Lymphocytes # (auto) 1.2 10 ^3/uL (0.4-5.4)
[2024-12-15 05:34] LABS: Basophils # (auto) 0 10 ^3/uL (0-0.2); Hematocrit 21.9 % (41.0-53.0); Mean Corpuscular Hemoglobin 28.6 pg (28.0-32.0); Mean Corpuscular Hgb Conc. 33.2 g/dL (32.0-36.0); Mean Corpuscular Volume 86.2 fL (80.0-100.0); Monocytes % (auto) 8.2 % (0.0-12.0); Neutrophils # (auto) 9.7 10 ^3/uL (1.6-8.6); Neutrophils % (auto) 78.3 % (37.0-80.0); Platelet Count (auto) 164 10^3/uL (140-450); Red Blood Cells 2.54 10^6/uL (4.5-5.90); Red Cell Distribution Width 19.9 % (11.8-14.3); White Blood Cell 12.4 10^3/uL (4.4-10.8)
[2024-12-15 05:42] LABS: Anion Gap 12 (5-15); Carbon Dioxide 31 mmol/L (20-31); Potassium 4.8 mmol/L (3.5-5.1); Sodium 139 mmol/L (136-145)
[2024-12-15 05:43] LABS: Calcium 9.5 mg/dL (8.7-10.4)
[2024-12-15 05:48] LABS: BUN/Creatinine Ratio 16.4 (10.0-20.0); Glucose 92 mg/dL (74-106); Magnesium 2.1 mg/dL (1.6-2.6)
[2024-12-15 05:50] LABS: Blood Urea Nitrogen 61 mg/dL (9-23); Chloride 96 mmol/L (98-107)
--- NOTE | 2024-12-15 10:25 | DVHPN2 ---
Progress Note - Dictate Date Seen: Dec 15, 2024 Has the PT tested + for MRSA If YES, has PT been informed?: No Medical Necessity Reason Pt with a Central, PICC or Fol: No Subjective Swollen, weak, bed bound vital signs Vital Sign Date Time Temp Pulse Resp B/P (MAP) Pulse Ox O2 Delivery O2 Flow Rate FiO2 12/15/24 08:44 150/70 12/15/24 08:43 70 12/15/24 06:54 16 100 12/15/24 06:46 Nasal Cannula 5.0 12/15/24 06:46 40 12/15/24 04:47 98.2 98.2 Total Intake and Output 12/14/24 12/14/24 12/15/24 15:00 23:00 07:00 Intake Total 1000 ml 400 ml Balance 1000 ml 400 ml medications Current Medications Medications Dose Ordered Sig/John Route Start Time Stop Time Status Last Admin Dose Admin Acetaminophen/ Hydrocodone Bitart 1 tab Q4HP PRN PO 12/08/24 17:00 12/15/24 06:08 1 TAB Acetaminophen 650 mg Q6HP PRN PO 12/08/24 17:00 12/13/24 01:15 650 MG Nitroglycerin 0.4 mg Q5MINP PRN SL 12/08/24 17:00 12/09/24 00:31 0.4 MG Morphine Sulfate 2 mg Q30M PRN IV 12/08/24 17:00 Sertraline HCl 50 mg DAILY PO 12/09/24 10:00 12/15/24 08:43 50 MG Carvedilol 25 mg BID PO 12/08/24 22:00 12/15/24 08:43 25 MG Clonidine HCl 0.2 mg TID PO 12/08/24 22:00 12/15/24 05:46 0.2 MG Nicotine 1 patch DAILY TD 12/09/24 10:00 12/15/24 08:42 1 PATCH Albuterol 2.5 mg Q4HPRN PRN NEB 12/08/24 18:00 12/13/24 16:05 2.5 MG Albuterol 2.5 mg Q6HR NEB 12/08/24 18:00 12/15/24 06:46 2.5 MG Ipratropium [place] 0.5 mg Q4HPRN PRN NEB 12/08/24 18:00 12/13/24 16:05 0.5 MG Ipratropium [place] 0.5 mg Q6HR NEB 12/08/24 18:00 12/15/24 06:46 0.5 MG Hydralazine HCl 10 mg Q6HP PRN IV 12/09/24 01:45 12/15/24 05:47 10 MG Nifedipine 90 mg DAILY PO 12/09/24 03:00 12/15/24 08:44 90 MG Morphine Sulfate 2 mg Q4HPRN PRN IV 12/09/24 11:15 12/14/24 23:11 2 MG Wound Care/ Dressing Products 1 applic Q12HR TOP 12/10/24 22:00 12/13/24 21:37 1 APPLIC Heparin Sodium (Porcine) 5,000 units Q12HR SC 12/11/24 10:00 12/15/24 08:44 5,000 UNITS Linezolid 300 ml @ 150 mls/hr Q12H IV 12/11/24 20:00 12/15/24 08:42 150 MLS/HR Ondansetron HCl 4 mg Q4HPRN PRN IV 12/12/24 18:00 12/13/24 13:07 4 MG Losartan Potassium 100 mg DAILY PO 12/14/24 10:00 12/15/24 08:43 100 MG Guaifenesin/ Dextromethorphan 10 ml Q4HP PRN PO 12/14/24 10:00 12/15/24 07:25 10 ML Ertapenem 0.5 gm/ Sodium Chloride 50 ml @ 100 mls/hr DAILY IV 12/14/24 19:30 objective GENERAL: The patient is an adult gentleman who appears to be chronically ill, in no acute distress, alert and oriented x2. HEENT: Shows pale oral mucosa and conjunctiva. NECK: No jugular venous distention. LUNGS: Shows bilateral crackles. CARDIOVASCULAR: Shows regular rate with an S4 gallop. ABDOMEN: Soft and nontender. No organomegaly. No ascites. EXTREMITIES: Show no clubbing or cyanosis. He has 2+ edema. NEUROLOGIC: The patient is bedbound. laboratory and microbiology Laboratory Tests 12/15/24 04:56 Test 12/15/24 04:56 Range/Units Serum Glucose 92 74-106 mg/dL Problem List ASSESSMENT AND PLAN: * End-stage renal disease. * Fluid overload. * Hyperkalemia. Seems he cannot tolerate RAAS blockers * Anemia of renal disease. * Uncontrolled hypertension. * Severe ischemic cardiomyopathy * CHF with systolic dysfunction * Chronic sacral wound/ulcer * Homelessness Had HD yesterday, 3.5 L removed 'HD again today, UF goal 3.5 L Stop RAAS blockers including Entresto due to hyperkalemia Strict Low K diet < 2 g/day Aggressive UF goals, 3.5 L today Dietary Evaluation Review Comments: 1. Encourage tight dietary sodium contraol. 2. Encourage higher protein diet for wound healing. 3. Provide Nepro 240 ml PO BID (each serving provided 425 kcal 19 g protein 174ml free water) as protein and Kcal support. 4. Needs home healthcare when D/C. Expected Outcomes/Goals: gadual wt loss, gradually healed wounds. Plan discussed with: ESA Johns MD Dec 15, 2024 10:25
[2024-12-15] MEDS ORDERED: SODIUM CHL 0.9% 1000 ML BAG XX ONE (10:30)
[2024-12-15] MEDS: EPOETIN ALFA-EPBX 4,000 UNIT/ML VIAL SC ONE (11:18)
[2024-12-15] MEDS: SODIUM CHL 0.9% 1000 ML BAG XX ONE (11:18)
--- NOTE | 2024-12-15 12:57 | DVHPN2 ---
Subjective No new complaints White count is better Potassium is 4.8 Changes from previous H/P or p: Changes Eyes: No Pain, No Vision change, No Conjunctivae inflammation, No Eyelid inflammation, No Other, No Redness ENT: No Ear pain, No Ear discharge, No Nose pain, No Nose discharge, No Nose congestion, No Mouth pain, No Mouth swelling, No Throat pain, No Throat swelling, No Other Cardiovascular: Chest Pain; No Palpitations; Orthopnea, Paroxysmal Noc. Dyspnea , Edema; No Lt Headedness, No Other Respiratory: No Cough, No Dry, No Shortness of breath, No SOB with excertion, No Wheezing, No Hemoptysis, No Pleuritic Pain, No Sputum, No Other Gastrointestinal: No Nausea, No Vomiting, No Abdominal Pain, No Diarrhea, No Constipation, No Melena, No Hematochezia, No Other Genitourinary: No Dysuria, No Frequency, No Incontinence, No Hematuria, No Retention, No Other Skin: Other (Multiple pressure injuries) Objective Vitals Vital Signs Date Time Temp Pulse Resp B/P (MAP) Pulse Ox O2 Delivery O2 Flow Rate FiO2 12/15/24 12:17 63 16 100 12/15/24 12:11 Nasal Cannula 5.0 12/15/24 12:11 40 12/15/24 09:43 155/88 12/15/24 09:00 98.0 98.0 Intake/Output Intake and Output 12/15/24 07:00 Intake Total 1400 ml Balance 1400 ml Intake Oral 1100 ml IV Total 300 ml # Voids 2 # Bowel Movements 2 General Appearance: Alert, Oriented X3, Cooperative, No acute distress Lungs: Other (Bilateral rhonchi) Cardiovascular: Regular rate, Normal S1, Normal S2 Abdomen: Normal bowel sounds, Soft, No tenderness Extremities: Other (2+ edema bilaterally in the lower extremities) Medications Current Medications Medications Dose Ordered Sig/John Route Start Time Stop Time Status Last Admin Dose Admin Acetaminophen/ Hydrocodone Bitart 1 tab Q4HP PRN PO 12/08/24 17:00 12/15/24 06:08 1 TAB Acetaminophen 650 mg Q6HP PRN PO 12/08/24 17:00 12/13/24 01:15 650 MG Nitroglycerin 0.4 mg Q5MINP PRN SL 12/08/24 17:00 12/09/24 00:31 0.4 MG Morphine Sulfate 2 mg Q30M PRN IV 12/08/24 17:00 Sertraline HCl 50 mg DAILY PO 12/09/24 10:00 12/15/24 08:43 50 MG Carvedilol 25 mg BID PO 12/08/24 22:00 12/15/24 08:43 25 MG Clonidine HCl 0.2 mg TID PO 12/08/24 22:00 12/15/24 05:46 0.2 MG Nicotine 1 patch DAILY TD 12/09/24 10:00 12/15/24 08:42 1 PATCH Albuterol 2.5 mg Q4HPRN PRN NEB 12/08/24 18:00 12/13/24 16:05 2.5 MG Albuterol 2.5 mg Q6HR NEB 12/08/24 18:00 12/15/24 12:11 2.5 MG Ipratropium [place] 0.5 mg Q4HPRN PRN NEB 12/08/24 18:00 12/13/24 16:05 0.5 MG Ipratropium [place] 0.5 mg Q6HR NEB 12/08/24 18:00 12/15/24 12:11 0.5 MG Hydralazine HCl 10 mg Q6HP PRN IV 12/09/24 01:45 12/15/24 05:47 10 MG Nifedipine 90 mg DAILY PO 12/09/24 03:00 12/15/24 08:44 90 MG Morphine Sulfate 2 mg Q4HPRN PRN IV 12/09/24 11:15 12/14/24 23:11 2 MG Wound Care/ Dressing Products 1 applic Q12HR TOP 12/10/24 22:00 12/15/24 10:00 1 APPLIC Heparin Sodium (Porcine) 5,000 units Q12HR SC 12/11/24 10:00 12/15/24 08:44 5,000 UNITS Linezolid 300 ml @ 150 mls/hr Q12H IV 12/11/24 20:00 12/15/24 08:42 150 MLS/HR Ondansetron HCl 4 mg Q4HPRN PRN IV 12/12/24 18:00 12/13/24 13:07 4 MG Losartan Potassium 100 mg DAILY PO 12/14/24 10:00 12/15/24 08:43 100 MG Guaifenesin/ Dextromethorphan 10 ml Q4HP PRN PO 12/14/24 10:00 12/15/24 07:25 10 ML Ertapenem 0.5 gm/ Sodium Chloride 50 ml @ 100 mls/hr DAILY IV 12/14/24 19:30 12/15/24 12:24 100 MLS/HR Laboratory Results Laboratory Tests 12/15/24 04:56 Chemistry Test 12/15/24 04:56 Calcium Level 9.5 mg/dL (8.7-10.4) Magnesium Level 2.1 mg/dL (1.6-2.6) Microbiology Microbiology Date/Time Source Procedure Growth Status 12/09/24 20:30 Coccyx Gram Stain - Final Complete 12/09/24 20:30 Wound Culture - Final Enterococcus faecium Methicillin Resistant S.aureus Enterobacter cloacae Complete 12/08/24 13:32 Blood Blood Culture - Final NO GROWTH AFTER 5 DAYS OF INCUBATION. Complete Assessment/Plan Assessment/Plan Sepsis due to decubitus wounds infection End-stage renal disease on hemodialysis Hyperkalemia Decubitus nonhealing wounds of the sacrum and buttocks COPD Chronic respiratory failure on home O2 Coronary artery disease status post angioplasty in the past Ischemic cardiomyopathy last ejection fraction 25% Anxiety Anemia of chronic kidney disease Elevated troponin most likely NSTEMI type 2 Pulmonary edema due to fluid overload Fluid overload Plan Continue IV antibiotics with Zosyn and vancomycin Oxygen as needed Med neb treatments as needed Wound Care Give Lokelma 10 g p.o. now Hemodialysis per nephrology Consult Nephrology Lasix 40 mg IV twice a day Full code Advance directives discussed for 20 minutes 12/10/2024: Continue IV antibiotics Surgical consult Wound care Hemodialysis is under way right now Hyperkalemia Monitor closely Lasix Full code 12/11/24: Gynecomastia: most likely due to ESRD Check TSH, LH, HCG, estradiol, testosterone levels ESRD: HD IV antibiotics: Change to Zyvox ID consult Nonhealing nonsurgical wound: Surgical consult appreciated, medical Tx, Cx: Enterococcus and norma Fluid overload: HD Hyperkalemia: HD Sepsis: IV antibiotics Anemia: Stable 12/12/24: Hyperkalemia: Lokelma HD Nonhealing wound infection: VRE, continue Zyvox, ID consult Bed bound Fluid overload: HD today 12/13/2024: Continue IV antibiotics Zyvox Increase losartan to 100 mg daily ESRD: Continue hemodialysis per nephrology Infectious disease consultation appreciated, continue Zyvox Monitor closely Wound care 12/14/2024: Continue Zyvox Add Robitussin DM p.r.n. Continue other home medications Hemodialysis per nephrology 12/15/2024: Continue Zyvox Hemodialysis per nephrology Blood pressure is still high: Losartan 100 mg daily, clonidine 0.2 mg t.i.d., Coreg 25 mg b.i.d., nifedipine ER 90 mg daily, Add minoxidil 5 mg b.i.d. Continue wound care Monitor closely Plan discussed with: Patient Date of Service: Dec 15, 2024 Billing Provider: MATIAS CUMMINS MD Common Visit Codes: [id number] INP/OBS CARE(HIGH) MATIAS CUMMINS MD Dec 15, 2024 12:57
[2024-12-15] MEDS: MINOXIDIL 2.5 MG TAB PO ONE (13:00)
[2024-12-15] MEDS: MINOXIDIL 2.5 MG TAB PO SCH (22:05)
--- NOTE | 2024-12-15 23:53 | DVHINCON2 ---
Date of service: Dec 15, 2024 Referring Physician Radha Reason for Consultation Rule out progressive CAD History of Present Illness This is a 49 year old male with a past medical history of hypertension, congestive heart failure (EF 25%), coronary artery disease with prior [place] and stenting, chronic kidney disease on hemodialysis, COPD, asthma, obesity, history of aortic aneurysm repair (2023), complicated by paraplegia, methamphetamine, marijuana, and tobacco use who presented to the ED on 12/08 with complaints of sharp, stabbing chest pain that began on 12/07 night. He reports that the pain was relieved after taking one nitroglycerin tablet. The chest pain is associated with shortness of breath. Patient states he previously saw ux design lead Dr. Malhotra but has not followed up in some time. Patient has a future appointment with Dr. Terry. Patient states he underwent left heart catheterization in 2016 showing clear coronaries and an EF of 25%. He had 1-2 stents placed in [id number] at [place]. He under went aortic aneurysm repair in 2023, complicated by paraplegia and is now wheelchair-bound. He also reports multiple pressure injuries on buttocks and bilateral lower extremities. Patient was admitted to the hospital. I am asked to consult on this patient. Family History: Patient reports no known family medical history. Allergies: Coded Allergies: NO KNOWN ALLERGIES (Unverified , 09/27/16) Home Meds Reported Medications Hydralazine Hcl (Hydralazine Hcl) 100 Mg Tab, 1 TAB PO TID for 60 Days, #180 12/09/24 Ferrous Sulfate (Ferosul) 325 Mg Tab, 1 TAB PO DAILY for 60 Days, #60 12/09/24 Furosemide (Furosemide) 40 Mg Tab, 1 TAB PO DAILY for 30 Days, #30 12/09/24 Sevelamer Carbonate (Sevelamer Carbonate) 800 Mg Tab, 3 TAB PO TID for 30 Days, #270 12/09/24 Doxazosin Mesylate (Doxazosin Mesylate) 2 Mg Tab, 1 TAB PO DAILY for 30 Days, #30 12/09/24 Sertraline HCl (Sertraline HCl) 50 Mg Tab, 1 TAB PO DAILY 12/08/24 Nifedipine (Nifedipine Er) 90 Mg Tab, 1 TAB PO DAILY 12/08/24 Carvedilol (Carvedilol) 25 Mg Tab, 1 TAB PO BID 12/08/24 Clonidine Hydrochloride (Clonidine Hcl) 0.2 Mg Tab, 1 TAB PO TID 12/08/24 Losartan Potassium (Losartan Potassium) 100 Mg Tab, 1 TAB PO DAILY 12/08/24 Current Medications Current Medications Medications (Trade) Dose Ordered Sig/John Route PRN Reason Start Time Stop Time Status Last Admin Ertapenem 0.5 gm/ Sodium Chloride 50 ml @ 100 mls/hr DAILY IV 12/14/24 19:30 12/15/24 12:24 Minoxidil (Loniten Tablet) 5 mg Q12HR PO 12/15/24 22:00 Review of Systems Constitutional: reports: chills, malaise, sweats; denies: diaphoresis, fatigue, fever, weakness, others EENTM: denies: blurred vision, double vision, ear bleeding, ear discharge, ear drainage, ear pain, ear ringing, eye pain, eye redness, hearing loss, mouth pain, mouth swelling, nasal discharge, nose bleeding, nose congestion, nose pain, photophobia, tearing, throat pain, throat swelling, voice changes, others Respiratory: reports: cough, shortness of breath; denies: hemoptysis, orthopnea, SOB at rest, SOB with excertion, stridor, wheezing, others Cardiovascular: reports: chest pain; denies: dizzy spells, diaphoresis, Dyspnea on exertion, edema, irregular heart beat, left arm pain, lightheadedness, palpitations, PND, syncope, others Gastrointestinal: denies: abdomen distended, abdominal pain, blood streaked bowels, constipated, diarrhea, dysphagia, difficulty swallowing, hematemesis, melena, nausea, poor appetite, poor fluid intake, rectal bleeding, rectal pain, vomiting, others Genitourinary: denies: burning, dysuria, flank pain, frequency, hematuria, incontinence, penile discharge, penile sore, pain, testicle pain, testicle swelling, urgency, others Neurological: denies: dizziness, fainting, headache, left sided numbness, left sided weakness, numbness, paresthesia, pre-existing deficit, right sided numbness, right sided weakness, seizure, speech problems, tingling, tremors, weakness, others Musculoskeletal: denies: back pain, gout, joint pain, joint swelling, muscle pain, muscle stiffness, neck pain, others Integumetry: denies: bruises, change in color, change in hair/nails, dryness, laceration, lesions, lumps, rash, wounds, others Allergic/Immunocompromised: denies: Difficulty Healing, Frequent Infections, Hives, Itching, others Hematologic/Lymphatic: denies: anemia, blood clots, easy bleeding, easy bruising, swollen glands, others Endocrine: denies: excessive hunger, excessive sweating, excessive thirst, excessive urination, flushing, intolerance to cold, intolerance to heat, unexplained weight gain, unexplained weight loss, others Psychiatric: denies: anxiety, bipolar disorder, depression, hopeless, panic di sorder, schizophrenia, sleepless, suicidal, others All Other Systems: Reviewed and Negative Vital Signs Vital Signs Date Time Temp Pulse Resp B/P (MAP) Pulse Ox O2 Delivery O2 Flow Rate FiO2 12/15/24 18:01 65 18 100 12/15/24 17:53 Nasal Cannula* 5 40 12/15/24 17:00 97.9 148/63 (91) 97.9 Physical Exam GENERAL: Alert and oriented x 3. No acute distress. Obese. EYES: PERRL, EOMI. Anicteric. HENT: Moist mucous membranes. LUNGS: Clear to auscultation bilaterally. CARDIOVASCULAR: Regular rate and rhythm. ABDOMEN: Soft, nontender and nondistended. Midline abdominal scar. EXTREMITIES: 2+ edema. Open wound to the left calcaneal region. NEUROLOGIC: No focal neurological deficits. SKIN: Warm, dry. Labs/Diagnostic Data Labs Test 12/15/24 04:56 12/13/24 05:32 12/12/24 12:30 12/12/24 05:23 Range/Units White Blood Count 12.4 H 4.4-10.8 10^3/uL Red Blood Count 2.54 L 4.5-5.90 10^6/uL Hemoglobin 7.3 L 13.5-17.5 g/dL Hematocrit 21.9 L 41.0-53.0 % Mean Corpuscular Volume 86.2 # 80.0-100.0 fL Mean Corpuscular Hemoglobin 28.6 28.0-32.0 pg Mean Corpuscular Hemoglobin Concent 33.2 32.0-36.0 g/dL Red Cell Distribution Width 19.9 H 11.8-14.3 % Platelet Count 164 140-450 10^3/uL Mean Platelet Volume 7.3 6.9-10.8 fL Neutrophils (%) (Auto) 78.3 37.0-80.0 % Lymphocytes (%) (Auto) 10.0 10.0-50.0 % Monocytes (%) (Auto) 8.2 0.0-12.0 % Eosinophils (%) (Auto) 3.1 0.0-7.0 % Basophils (%) (Auto) 0.4 0.0-2.0 % Neutrophils # (Auto) 9.7 H 1.6-8.6 10 ^3/uL Lymphocytes # (Auto) 1.2 0.4-5.4 10 ^3/uL Monocytes # (Auto) 1.0 0-1.3 10 ^3/uL Eosinophils # (Auto) 0.4 0-0.8 10 ^3/uL Basophils # (Auto) 0 0-0.2 10 ^3/uL Nucleated Red Blood Cells 0.0 % Sodium Level 139 136-145 mmol/L Potassium Level 4.8 3.5-5.1 mmol/L Chloride Level 96 L 98-107 mmol/L Carbon Dioxide Level 31 20-31 mmol/L Anion Gap 12 5-15 Blood Urea Nitrogen 61 H 9-23 mg/dL Creatinine 3.73 H 0.700-1.30 mg/dL Glomerular Filtration Rate Calc 19 >90 mL/min BUN/Creatinine Ratio 16.4 10.0-20.0 Serum Glucose 92 74-106 mg/dL Calcium Level 9.5 8.7-10.4 mg/dL Magnesium Level 2.1 1.6-2.6 mg/dL Total Bilirubin 0.4 0.2-1.0 mg/dL Aspartate Amino Transferase (AST) 8 L 13-40 U/L Alanine Aminotransferase (ALT) 16 7-40 U/L Alkaline Phosphatase 72 46-116 U/L Total Protein 5.7 5.7-8.2 g/dL Albumin 3.5 3.2-4.8 g/dL Hepatitis B Surface Antigen Negative Negative Thyroid Stimulating Hormone (TSH) 2.08 0.55-4.78 uIU/mL Beta HCG, Quantitative 0.9 0-2 mIU/mL Test 12/11/24 05:27 12/11/24 02:35 12/09/24 00:29 12/08/24 13:32 Range/Units B-Type Natriuretic Peptide 691.47 0-100 pg/mL Random Vancomycin Level 15.3 H 5-10 ug/mL POC Glucose 122 H 70-106 mg/dl Troponin I High Sensitivity 57 *H </=54 ng/L Lactic Acid Level 1.2 0.4-2.0 mmol/L Test 12/08/24 11:51 Range/Units D-Dimer, Quantitative 2.21 H 0.0-0.49 mg/L FEU Microbiology Date/Time Source Procedure Growth Status 12/09/24 20:30 Coccyx Gram Stain - Final Complete 12/09/24 20:30 Wound Culture - Final Enterococcus faecium Methicillin Resistant S.aureus Enterobacter cloacae Complete 12/08/24 13:32 Blood Blood Culture - Final NO GROWTH AFTER 5 DAYS OF INCUBATION. Complete Assessment Sepsis due to decubitus wounds infection. End-stage renal disease on hemodialysis. Hyperkalemia. Decubitus nonhealing wounds of the sacrum and buttocks. COPD. Chronic respiratory failure on home O2. Coronary artery disease status post angioplasty in the past. Ischemic cardiomyopathy last ejection fraction 25%. Anxiety. Anemia of chronic kidney disease. Elevated troponin most likely NSTEMI type 2. Pulmonary edema due to fluid overload. Fluid overload. Plan/Recommendation I agree with your ongoing assessment and care of plan. Telemetry reviewed. Echcardiogram. Morphine and [place] for pain management. Coreg, Clonidine, Losartan, Nifedipine. IV antibiotics as ordered. IV Hydralazine for SBP >150. Additional plan as per the hospital course. A total of 45 minutes was spent reviewing the patient record, examining the patient, making a diagnostic and therapeutic plan, discussing this plan with [facility] personnel, following up on diagnostic studies and following the patient for clinical stability excluding any and all procedures. At least 50% of this time was spent in direct, [id number] contact. Plan discussed with: Patient ELISE VIEYRA MD Dec 15, 2024 19:09
[2024-12-16] VITALS (12 sets, daily range): BP systolic 97–166; BP diastolic 47–71; PULSE 66–81; RESP 12–18; TEMP 97.9–98.8; O2SAT 92–100
[2024-12-16 05:31] LABS: Basophils # (auto) 0.1 10 ^3/uL (0-0.2); Basophils % (auto) 0.5 % (0.0-2.0); Eosinophils # (auto) 0.4 10 ^3/uL (0-0.8); Eosinophils % (auto) 3.2 % (0.0-7.0); Hematocrit 21.9 % (41.0-53.0); Hemoglobin 7.2 g/dL (13.5-17.5); Lymphocytes # (auto) 1.2 10 ^3/uL (0.4-5.4); Lymphocytes % (auto) 10.5 % (10.0-50.0); Mean Corpuscular Hemoglobin 28.5 pg (28.0-32.0); Mean Corpuscular Hgb Conc. 32.8 g/dL (32.0-36.0); Mean Corpuscular Volume 86.6 fL (80.0-100.0); Monocytes # (auto) 0.7 10 ^3/uL (0-1.3); Monocytes % (auto) 5.9 % (0.0-12.0); Neutrophils # (auto) 9.2 10 ^3/uL (1.6-8.6); Neutrophils % (auto) 79.9 % (37.0-80.0); Platelet Count (auto) 161 10^3/uL (140-450); Red Blood Cells 2.52 10^6/uL (4.5-5.90); Red Cell Distribution Width 19.7 % (11.8-14.3); White Blood Cell 11.5 10^3/uL (4.4-10.8)
[2024-12-16 05:44] LABS: Alanine Aminotransferase 18 U/L (7-40); Alkaline Phosphatase 74 U/L (46-116); Calcium 9.4 mg/dL (8.7-10.4); Chloride 99 mmol/L (98-107)
[2024-12-16 05:45] LABS: Albumin 3.5 g/dL (3.2-4.8); Anion Gap 10 (5-15); BUN/Creatinine Ratio 14.6 (10.0-20.0); Bilirubin, Total 0.3 mg/dL (0.2-1.0); Carbon Dioxide 30 mmol/L (20-31); Glucose 93 mg/dL (74-106); Potassium 4.9 mmol/L (3.5-5.1); Sodium 139 mmol/L (136-145); Total Protein 5.7 g/dL (5.7-8.2)
[2024-12-16 05:52] LABS: Aspartate Aminotransferase 11 U/L (13-40); Blood Urea Nitrogen 47 mg/dL (9-23)
[2024-12-16] MEDS ORDERED: LINE1TAB6 PO (10:40)
[2024-12-16] MEDS ORDERED: MINO10TA2 PO (10:40)
--- NOTE | 2024-12-16 10:44 | DVHDS2 ---
Discharge Summary Date of Admission Dec 08, 2024 at 16:52 Date of Discharge: Dec 16, 2024 Labs/Diagnostic Data: Laboratory Results Test 12/16/24 05:12 12/12/24 12:30 12/12/24 05:23 12/11/24 05:27 White Blood Count 11.5 10^3/uL (4.4-10.8) Red Blood Count 2.52 10^6/uL (4.5-5.90) Hemoglobin 7.2 g/dL (13.5-17.5) Hematocrit 21.9 % (41.0-53.0) Mean Corpuscular Volume 86.6 fL (80.0-100.0) Mean Corpuscular Hemoglobin 28.5 pg (28.0-32.0) Mean Corpuscular Hemoglobin Concent 32.8 g/dL (32.0-36.0) Red Cell Distribution Width 19.7 % (11.8-14.3) Platelet Count 161 10^3/uL (140-450) Mean Platelet Volume 6.7 fL (6.9-10.8) Neutrophils (%) (Auto) 79.9 % (37.0-80.0) Lymphocytes (%) (Auto) 10.5 % (10.0-50.0) Monocytes (%) (Auto) 5.9 % (0.0-12.0) Eosinophils (%) (Auto) 3.2 % (0.0-7.0) Basophils (%) (Auto) 0.5 % (0.0-2.0) Neutrophils # (Auto) 9.2 10 ^3/uL (1.6-8.6) Lymphocytes # (Auto) 1.2 10 ^3/uL (0.4-5.4) Monocytes # (Auto) 0.7 10 ^3/uL (0-1.3) Eosinophils # (Auto) 0.4 10 ^3/uL (0-0.8) Basophils # (Auto) 0.1 10 ^3/uL (0-0.2) Nucleated Red Blood Cells 0.0 % Sodium Level 139 mmol/L (136-145) Potassium Level 4.9 mmol/L (3.5-5.1) Chloride Level 99 mmol/L (98-107) Carbon Dioxide Level 30 mmol/L (20-31) Anion Gap 10 (5-15) Blood Urea Nitrogen 47 mg/dL (9-23) Creatinine 3.23 mg/dL (0.700-1.30) Glomerular Filtration Rate Calc 22 mL/min (>90) BUN/Creatinine Ratio 14.6 (10.0-20.0) Serum Glucose 93 mg/dL (74-106) Calcium Level 9.4 mg/dL (8.7-10.4) Magnesium Level 2.0 mg/dL (1.6-2.6) Total Bilirubin 0.3 mg/dL (0.2-1.0) Aspartate Amino Transferase (AST) 11 U/L (13-40) Alanine Aminotransferase (ALT) 18 U/L (7-40) Alkaline Phosphatase 74 U/L (46-116) Total Protein 5.7 g/dL (5.7-8.2) Albumin 3.5 g/dL (3.2-4.8) Hepatitis B Surface Antigen Negative (Negative) Thyroid Stimulating Hormone (TSH) 2.08 uIU/mL (0.55-4.78) Beta HCG, Quantitative 0.9 mIU/mL (0-2) B-Type Natriuretic Peptide 691.47 pg/mL (0-100) Random Vancomycin Level 15.3 ug/mL (5-10) Test 12/11/24 02:35 12/09/24 00:29 12/08/24 13:32 12/08/24 11:51 POC Glucose 122 mg/dl (70-106) Troponin I High Sensitivity 57 ng/L (</=54) Lactic Acid Level 1.2 mmol/L (0.4-2.0) D-Dimer, Quantitative 2.21 mg/L FEU (0.0-0.49) Other Laboratory Tests 12/16/24 05:12 Brief Hx & Hospital Course: Final diagnoses: Sepsis due to decubitus wounds infection End-stage renal disease on hemodialysis Hyperkalemia Decubitus nonhealing wounds of the sacrum and buttocks COPD Chronic respiratory failure on home O2 Coronary artery disease status post angioplasty in the past Ischemic cardiomyopathy last ejection fraction 25% Anxiety Anemia of chronic kidney disease Elevated troponin most likely NSTEMI type 2 Pulmonary edema due to fluid overload Fluid overload Hypertension He was given IV antibiotics for the wound infection His hyperkalemia and kidney failure was treated with hemodialysis and several doses of Lokelma The initial antibiotics were not effective in lower in the white count so based on the culture it was switched to IV Zyvox which actually took care of the infection better and the white count normalized slowly Fluid overload was treated with the hemodialysis Overall he remained stable He was seen by General surgery and was recommended for outpatient follow up with no immediate surgical interventions needed but to follow up with General surgery as an outpatient for possible diverting colostomy For the time being the patient can be discharged home on p.o. Zyvox for 10 more days with home health for wound care He is still has some edema in his legs but it is improving with dialysis He was dialyzed yesterday and the day before 2 days in a row to improve the fluid overload The patient is bed-bound and paraplegic He has home O2 Home health was ordered for wound care Stable for discharge Add minoxidil for uncontrolled hypertension Resume other home medications Follow up with dialysis again tomorrow as scheduled Condition at Discharge: Stable Final Diagnosis/Problems List Sepsis due to decubitus wounds infection End-stage renal disease on hemodialysis Hyperkalemia Decubitus nonhealing wounds of the sacrum and buttocks COPD Chronic respiratory failure on home O2 Coronary artery disease status post angioplasty in the past Ischemic cardiomyopathy last ejection fraction 25% Anxiety Anemia of chronic kidney disease Elevated troponin most likely NSTEMI type 2 Pulmonary edema due to fluid overload Fluid overload Discharge Disposition: Home SNF Discharge Will this Physician continue t: No Discharge Instruct/Medications Diet: Consistent carbohydrate, Cardiac 2g Na,low cholest, Renal Activity: No Restrictions, As Tolerated Follow Up/Referral: PCP as soon as possible Hemodialysis as scheduled Medications: Zyvox 600 mg twice a day for 10 days Add minoxidil 10 mg twice a day Resume other home medications Discharge Statement: "Patient was advised to return to the ER or call 911 if any headaches, dizziness, shortness of breath, chest pain, abdominal pain, bleeding, fevers, or worsening of medical condition. Patient was counseled about treatment plan, medications, possible side effects, patientverbalized understanding. All questions were answered to the best of my ability. This discharge took greater then 30 minutes in planning, reviewing documentation, counseling the patient, and discussing with other team members." ASSESSMENT ASSESSMENT Assessment Sepsis due to decubitus wounds infection End-stage renal disease on hemodialysis Hyperkalemia Decubitus nonhealing wounds of the sacrum and buttocks COPD Chronic respiratory failure on home O2 Coronary artery disease status post angioplasty in the past Ischemic cardiomyopathy last ejection fraction 25% Anxiety Anemia of chronic kidney disease Elevated troponin most likely NSTEMI type 2 Pulmonary edema due to fluid overload Fluid overload Date of Service: Dec 16, 2024 Billing Provider: MATIAS CUMMINS MD Common Visit Codes: 14295-ECF/OBS DISCH DAY >30min MATIAS CUMMINS MD Dec 16, 2024 10:44
--- NOTE | 2024-12-16 12:19 | DVHPN2 ---
Progress Note - Dictate Date Seen: Dec 16, 2024 Has the PT tested + for MRSA If YES, has PT been informed?: No Medical Necessity Reason Pt with a Central, PICC or Fol: No Subjective Patient is expecting to be discharged today. vital signs Vital Sign Date Time Temp Pulse Resp B/P (MAP) Pulse Ox O2 Delivery O2 Flow Rate FiO2 12/16/24 11:35 70 16 100 12/16/24 11:28 Nasal Cannula 2.0 12/16/24 11:28 28 12/16/24 09:23 156/71 12/16/24 09:00 98.8 98.8 Total Intake and Output 12/15/24 12/15/24 12/16/24 15:00 23:00 07:00 Intake Total 300 ml 1200 ml 500 ml Balance 300 ml 1200 ml 500 ml medications Current Medications Medications Dose Ordered Sig/John Route Start Time Stop Time Status Last Admin Dose Admin Acetaminophen/ Hydrocodone Bitart 1 tab Q4HP PRN PO 12/08/24 17:00 12/15/24 06:08 1 TAB Acetaminophen 650 mg Q6HP PRN PO 12/08/24 17:00 12/16/24 04:44 650 MG Nitroglycerin 0.4 mg Q5MINP PRN SL 12/08/24 17:00 12/09/24 00:31 0.4 MG Morphine Sulfate 2 mg Q30M PRN IV 12/08/24 17:00 Sertraline HCl 50 mg DAILY PO 12/09/24 10:00 12/16/24 09:21 50 MG Carvedilol 25 mg BID PO 12/08/24 22:00 12/16/24 09:20 25 MG Clonidine HCl 0.2 mg TID PO 12/08/24 22:00 12/15/24 05:46 0.2 MG Nicotine 1 patch DAILY TD 12/09/24 10:00 12/16/24 09:21 1 PATCH Albuterol 2.5 mg Q4HPRN PRN NEB 12/08/24 18:00 12/13/24 16:05 2.5 MG Albuterol 2.5 mg Q6HR NEB 12/08/24 18:00 12/16/24 11:28 2.5 MG Ipratropium [place] 0.5 mg Q4HPRN PRN NEB 12/08/24 18:00 12/13/24 16:05 0.5 MG Ipratropium [place] 0.5 mg Q6HR NEB 12/08/24 18:00 12/16/24 11:28 0.5 MG Hydralazine HCl 10 mg Q6HP PRN IV 12/09/24 01:45 12/15/24 05:47 10 MG Nifedipine 90 mg DAILY PO 12/09/24 03:00 12/16/24 09:21 90 MG Morphine Sulfate 2 mg Q4HPRN PRN IV 12/09/24 11:15 12/16/24 09:19 2 MG Wound Care/ Dressing Products 1 applic Q12HR TOP 12/10/24 22:00 12/15/24 22:16 1 APPLIC Heparin Sodium (Porcine) 5,000 units Q12HR SC 12/11/24 10:00 12/15/24 22:09 5,000 UNITS Linezolid 300 ml @ 150 mls/hr Q12H IV 12/11/24 20:00 12/16/24 09:47 150 MLS/HR Ondansetron HCl 4 mg Q4HPRN PRN IV 12/12/24 18:00 12/13/24 13:07 4 MG Losartan Potassium 100 mg DAILY PO 12/14/24 10:00 12/16/24 09:21 100 MG Guaifenesin/ Dextromethorphan 10 ml Q4HP PRN PO 12/14/24 10:00 12/16/24 04:43 10 ML Ertapenem 0.5 gm/ Sodium Chloride 50 ml @ 100 mls/hr DAILY IV 12/14/24 19:30 12/15/24 12:24 100 MLS/HR Minoxidil 5 mg Q12HR PO 12/15/24 22:00 12/16/24 09:23 5 MG objective General Appearance: Cooperative. Well developed. Well nourished. NAD Head Exam: Normal inspection Neck Exam: Normal inspection. Non-tender. Normal alignment Pulmonary/Respiratory: Chest non-tender. Clear bilateral breath sounds, no crackles, no wheezing. Cardiovascular/Chest: Regular rate and rhythm. Diastolic murmur. No JVD. Abdominal Exam: Normal bowel sounds. Soft. normal abdomen, no visible veins, Nontender. No hepatospenomegaly. No masses Ankle Exam: 2+ ankle edema Lower extremities: 2+ lower extremity edema up to the knees Neuro/Mental Status: A&O x4. Coherent. Thoughts/Psych: Normal thought pattern. Appropriate mood and affect. Good judgement and insight Skin Exam: Normal inspection. Normal color. Warm. Dry. Minimal visible erythema around dialysis catheter site, no tenderness. Sacral wound x3 noted laboratory and microbiology Laboratory Tests 12/16/24 05:12 Test 12/16/24 05:12 Range/Units Serum Glucose 93 74-106 mg/dL Assessment/Plan Patient is a 49-year-old male Sacral decubitus ulcer unstageable Leukocytosis Missed hemodialysis Paraplegia End-stage renal disease on hemodialysis Poor medical compliance Protein calorie malnutrition Edema/anasarca due to missed dialysis Recommendations Patient has nonhealing chronic decubitus wounds, he is evaluated by surgery who recommended aggressive wound care and no surgical debridement. Great and patient would be benefitted with fecal diversion to avoid soiling of the wound with feces The patient WBC count is improving possibly due to reactive process due to missed hemodialysis and stress. I do not recommend broad-spectrum long course of antibiotics hence it will only drive resistance as he is not a candidate for flap For now continue, will treat him for soft tissue infection. hence consider the course of additional one week. ( his cultures are also probably not reliable since he is frequently contaminated with feaces ) His wbc count seems to be trending down on Linezolid. Continue IV Linezolid. monitor platelets. covers staph aureus. Enterobacter probably fecal contamination / superficial wound. on IV Ertapenem Monitor platelets [normal] plan for short course of antibiotics oral Linezolid for 5-7 more days to complete 2 weeks course for soft tissue infection. cbc in a week continue wound care frequent turns wound care clinic referral discussed with Dr Elizabeth to also put in referral for Surgery as oupt for evaluation for diverting colostomy for wound healing. total time 50 minutes spent during the encounter. reviewed records, labs, notes. Plan discussed with team Thank you for consultation Dietary Evaluation Review Comments: 1. Encourage tight dietary sodium contraol. 2. Encourage higher protein diet for wound healing. 3. Provide Nepro 240 ml PO BID (each serving provided 425 kcal 19 g protein 174ml free water) as protein and Kcal support. 4. Needs home healthcare when D/C. Expected Outcomes/Goals: gadual wt loss, gradually healed wounds. Plan discussed with: LEV Lubin MD Dec 16, 2024 12:19
--- NOTE | 2024-12-16 17:43 | DVHPN2 ---
Progress Note - Dictate Date Seen: Dec 16, 2024 Has the PT tested + for MRSA If YES, has PT been informed?: No Medical Necessity Reason Pt with a Central, PICC or Fol: No Subjective Swollen, weak, bed bound vital signs Vital Sign Date Time Temp Pulse Resp B/P (MAP) Pulse Ox O2 Delivery O2 Flow Rate FiO2 12/16/24 13:00 98.4 66 16 156/67 (96) 97 98.4 12/16/24 11:28 Nasal Cannula 2.0 12/16/24 11:28 28 Total Intake and Output 12/15/24 12/15/24 12/16/24 15:00 23:00 07:00 Intake Total 300 ml 1200 ml 500 ml Balance 300 ml 1200 ml 500 ml medications Current Medications Medications Dose Ordered Sig/John Route Start Time Stop Time Status Last Admin Dose Admin Acetaminophen/ Hydrocodone Bitart 1 tab Q4HP PRN PO 12/08/24 17:00 12/15/24 06:08 1 TAB Acetaminophen 650 mg Q6HP PRN PO 12/08/24 17:00 12/16/24 04:44 650 MG Nitroglycerin 0.4 mg Q5MINP PRN SL 12/08/24 17:00 12/09/24 00:31 0.4 MG Morphine Sulfate 2 mg Q30M PRN IV 12/08/24 17:00 Sertraline HCl 50 mg DAILY PO 12/09/24 10:00 12/16/24 09:21 50 MG Carvedilol 25 mg BID PO 12/08/24 22:00 12/16/24 09:20 25 MG Clonidine HCl 0.2 mg TID PO 12/08/24 22:00 12/15/24 05:46 0.2 MG Nicotine 1 patch DAILY TD 12/09/24 10:00 12/16/24 09:21 1 PATCH Albuterol 2.5 mg Q4HPRN PRN NEB 12/08/24 18:00 12/13/24 16:05 2.5 MG Albuterol 2.5 mg Q6HR NEB 12/08/24 18:00 12/16/24 11:28 2.5 MG Ipratropium [place] 0.5 mg Q4HPRN PRN NEB 12/08/24 18:00 12/13/24 16:05 0.5 MG Ipratropium [place] 0.5 mg Q6HR NEB 12/08/24 18:00 12/16/24 11:28 0.5 MG Hydralazine HCl 10 mg Q6HP PRN IV 12/09/24 01:45 12/15/24 05:47 10 MG Nifedipine 90 mg DAILY PO 12/09/24 03:00 12/16/24 09:21 90 MG Morphine Sulfate 2 mg Q4HPRN PRN IV 12/09/24 11:15 12/16/24 09:19 2 MG Wound Care/ Dressing Products 1 applic Q12HR TOP 12/10/24 22:00 12/15/24 22:16 1 APPLIC Heparin Sodium (Porcine) 5,000 units Q12HR SC 12/11/24 10:00 12/15/24 22:09 5,000 UNITS Linezolid 300 ml @ 150 mls/hr Q12H IV 12/11/24 20:00 12/16/24 09:47 150 MLS/HR Ondansetron HCl 4 mg Q4HPRN PRN IV 12/12/24 18:00 12/13/24 13:07 4 MG Losartan Potassium 100 mg DAILY PO 12/14/24 10:00 12/16/24 09:21 100 MG Guaifenesin/ Dextromethorphan 10 ml Q4HP PRN PO 12/14/24 10:00 12/16/24 04:43 10 ML Ertapenem 0.5 gm/ Sodium Chloride 50 ml @ 100 mls/hr DAILY IV 12/14/24 19:30 12/15/24 12:24 100 MLS/HR Minoxidil 5 mg Q12HR PO 12/15/24 22:00 12/16/24 09:23 5 MG objective GENERAL: The patient is an adult gentleman who appears to be chronically ill, in no acute distress, alert and oriented x2. HEENT: Shows pale oral mucosa and conjunctiva. NECK: No jugular venous distention. LUNGS: Shows bilateral crackles. CARDIOVASCULAR: Shows regular rate with an S4 gallop. ABDOMEN: Soft and nontender. No organomegaly. No ascites. EXTREMITIES: Show no clubbing or cyanosis. He has 2+ edema. NEUROLOGIC: The patient is bedbound. laboratory and microbiology Laboratory Tests 12/16/24 05:12 Test 12/16/24 05:12 Range/Units Serum Glucose 93 74-106 mg/dL Problem List ASSESSMENT AND PLAN: * End-stage renal disease. * Fluid overload. * Hyperkalemia. Seems he cannot tolerate RAAS blockers * Anemia of renal disease. * Uncontrolled hypertension. * Severe ischemic cardiomyopathy * CHF with systolic dysfunction * Chronic sacral wound/ulcer * Homelessness HD tomorrow Stop RAAS blockers including Entresto due to hyperkalemia Strict Low K diet < 2 g/day Aggressive UF goals, 3.5 L today Dietary Evaluation Review Comments: 1. Encourage tight dietary sodium contraol. 2. Encourage higher protein diet for wound healing. 3. Provide Nepro 240 ml PO BID (each serving provided 425 kcal 19 g protein 174ml free water) as protein and Kcal support. 4. Needs home healthcare when D/C. Expected Outcomes/Goals: gadual wt loss, gradually healed wounds. Plan discussed with: Other ESA YOUNG MD Dec 16, 2024 17:43
--- NOTE | 2024-12-17 00:32 | DVHPN2 ---
Progress Note - Dictate Date Seen: Dec 16, 2024 Has the PT tested + for MRSA If YES, has PT been informed?: No Medical Necessity Reason Pt with a Central, PICC or Fol: No Subjective Patient was seen and evaluated in follow up. Patient is on 3 LPM NC. Patient is complaining of sacrum pain. WBC 11.5, HGB 7.2, HCT 21.9, BUN 47, Applications Project Manager 3.23. Telemetry reviewed. vital signs Vital Sign Date Time Temp Pulse Resp B/P (MAP) Pulse Ox O2 Delivery O2 Flow Rate FiO2 12/16/24 13:00 98.4 66 16 156/67 (96) 97 98.4 12/16/24 11:28 Nasal Cannula 2.0 12/16/24 11:28 28 Total Intake and Output 12/16/24 12/16/24 12/17/24 15:00 23:00 07:00 Intake Total 300 ml 580 ml Balance 300 ml 580 ml objective GENERAL: Alert and oriented x 3. No acute distress. Obese. EYES: PERRL, EOMI. Anicteric. HENT: Moist mucous membranes. LUNGS: Clear to auscultation bilaterally. CARDIOVASCULAR: Regular rate and rhythm. ABDOMEN: Soft, nontender and nondistended. Midline abdominal scar. EXTREMITIES: 2+ edema. Open wound to the left calcaneal region. NEUROLOGIC: No focal neurological deficits. SKIN: Warm, dry. laboratory and microbiology Laboratory Tests 12/16/24 05:12 Test 12/16/24 05:12 Range/Units Serum Glucose 93 74-106 mg/dL Problem List Sepsis due to decubitus wounds infection. End-stage renal disease on hemodialysis. Hyperkalemia. Decubitus nonhealing wounds of the sacrum and buttocks. COPD. Chronic respiratory failure on home O2. Coronary artery disease status post angioplasty in the past. Ischemic cardiomyopathy last ejection fraction 25%. Anxiety. Anemia of chronic kidney disease. Elevated troponin most likely NSTEMI type 2. Pulmonary edema due to fluid overload. Fluid overload. Assessment/Plan Continued all current supportive medical care. Morphine and [place] for pain management. Coreg, Clonidine, Losartan, Nifedipine. IV antibiotics as ordered. IV Hydralazine for SBP >150. Additional plan as per the hospital course. Dietary Evaluation Review Comments: 1. Encourage tight dietary sodium contraol. 2. Encourage higher protein diet for wound healing. 3. Provide Nepro 240 ml PO BID (each serving provided 425 kcal 19 g protein 174ml free water) as protein and Kcal support. 4. Needs home healthcare when D/C. Expected Outcomes/Goals: gadual wt loss, gradually healed wounds. Plan discussed with: Patient ELISE VIEYRA MD Dec 17, 2024 00:32
== END 2024-12-16 17:42 | disposition home health service (06) | DRG 720 ==
LOC: EDBD 11:31 → ER 11:43 → OVERFLOW 16:52 → TELE-EAST 21:27
PROVIDERS: ADMIT Internal Medicine Geriatric Medicine; ATTEND Internal Medicine Geriatric Medicine
PROC: 5A1D70Z Performance of Urinary Filtration, Intermittent, Less than 6 Hours Per Day (ICD-10-PCS; principal; 2024-12-10)
PROC: 5A1D70Z Performance of Urinary Filtration, Intermittent, Less than 6 Hours Per Day (ICD-10-PCS; 2024-12-12)
PROC: 5A1D70Z Performance of Urinary Filtration, Intermittent, Less than 6 Hours Per Day (ICD-10-PCS; 2024-12-14)
PROC: 5A1D70Z Performance of Urinary Filtration, Intermittent, Less than 6 Hours Per Day (ICD-10-PCS; 2024-12-15)
DX: A41.9 Sepsis, unspecified organism (principal); I50.23 Acute on chronic systolic (congestive) heart failure; I21.A1 Myocardial infarction type 2; L89.153 Pressure ulcer of sacral region, stage 3; L89.323 Pressure ulcer of left buttock, stage 3; L89.313 Pressure ulcer of right buttock, stage 3; G82.20 Paraplegia, unspecified; N18.6 End stage renal disease; D63.1 Anemia in chronic kidney disease; J96.10 Chronic respiratory failure, unspecified whether with hypoxia or hypercapnia; E66.9 Obesity, unspecified; I13.2 Hypertensive heart and chronic kidney disease with heart failure and with stage 5 chronic kidney disease, or end stage renal disease; J44.89 Other specified chronic obstructive pulmonary disease; Z68.34 Body mass index [BMI] 34.0-34.9, adult; N62 Hypertrophy of breast; Z99.2 Dependence on renal dialysis; I16.0 Hypertensive urgency; Z95.5 Presence of coronary angioplasty implant and graft; Z99.81 Dependence on supplemental oxygen; F41.9 Anxiety disorder, unspecified; F15.90 Other stimulant use, unspecified, uncomplicated; E87.5 Hyperkalemia; I25.5 Ischemic cardiomyopathy; I25.10 Atherosclerotic heart disease of native coronary artery without angina pectoris; G89.29 Other chronic pain; F17.210 Nicotine dependence, cigarettes, uncomplicated; E78.5 Hyperlipidemia, unspecified; Z99.3 Dependence on wheelchair; Z91.199 Patient's noncompliance with other medical treatment and regimen due to unspecified reason; Z86.79 Personal history of other diseases of the circulatory system; Z74.01 Bed confinement status; Z63.5 Disruption of family by separation and divorce; Z59.00 Homelessness unspecified
CPT/HCPCS: 36415; 71045; 78582; 80048; 80053; 80202; 82672; 82962; 83605; 83735; 83880; 84132; 84443; 84484; 84702; 85025; 85379; 87040; 87077; 87081; 87186; 87205; 87340; 90935; 93005; 93306; 94640; 99291; G0378; J1335; J1642; J2405; J2543